=== PATIENT | female | born 1935 ===

== ENCOUNTER 2017-12-16 15:45 | Inpatient (IN) | payer MEDICARE, MEDICAID ==
[2017-12-16] MEDS ORDERED: Sodium Chloride 0.9% 1,000 ML IV ONE (17:03)
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
[2017-12-16 17:42] LABS: BASO % 0.6 % (0.0-2.0); HEMOGLOBIN 12.6 g/dL (11.0-16.0); LYMPH # 0.6 K/uL (1.0-4.3); LYMPH % 18.1 % (20.0-40.0); MEAN CORPUSCULAR HEMOGLOBIN 28.5 pg (27.0-31.0); MEAN PLATELET VOLUME 8.1 fL (7.2-11.7); MONO # 0.3 K/uL (0.0-0.8); MONO % 7.2 % (0.0-10.0); NEUT # 2.6 K/uL (1.8-7.0); NEUT % 73.1 % (50.0-75.0); NRBC % 0.1 % (0.0-2.0); RBC 4.44 Mil/uL (3.80-5.20); WHITE BLOOD COUNT 3.5 K/uL (4.8-10.8)
[2017-12-16 17:45] VITALS: BMI 26.3
[2017-12-16 17:45] LABS: MEAN CELL VOLUME 86.1 fL (81.0-99.0)
[2017-12-16 17:51] LABS: ALB/GLOB RATIO 1.1 (1.0-2.1); ALBUMIN 3.2 g/dL (3.5-5.0); ALT/SGPT 26 U/L (9-52); AST/SGOT 37 U/L (14-36); BLOOD UREA NITROGEN 10 mg/dL (7-17); CALCIUM 8.3 mg/dl (8.6-10.4); GFR AFRICAN-AMERICAN > 60; GFR NON-AFRICAN AMERICAN > 60
[2017-12-16] MEDS ORDERED: Potassium Chloride 20 mEq ER Tab PO STA (18:07)
[2017-12-16] MEDS ORDERED: Potassium Chloride 20 mEq ER Tab PO ONE (18:51)
[2017-12-16] MEDS ORDERED: Potassium Chloride 20 mEq 0 MEQ/0 ML BAG IVPB ONE (18:52)
[2017-12-16] MEDS ORDERED: Dextrose 50% SYRINGE Inj (50 ml) IV STA (18:57)
[2017-12-16] MEDS ORDERED: Dextrose 50% VIAL Inj (50 ml) IV ONE (19:26)
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
[2017-12-16 21:47] LABS: SQUAMOUS EPITHIAL < 1 /hpf (0-5); URINE BACTERIA RARE (<OCC); URINE BILIRUBIN NEGATIVE (NEGATIVE); URINE BLOOD NEGATIVE (NEGATIVE); URINE CLARITY Clear (Clear); URINE COLOR Yellow (YELLOW); URINE GLUCOSE (UA) NORMAL (Normal); URINE LEUKOCYTE ESTERASE TRACE Leu/uL (Negative); URINE NITRATE NEGATIVE (NEGATIVE); URINE PROTEIN NEGATIVE (NEGATIVE); URINE UROBILINOGEN NORMAL mg/dL (0.2-1.0)
[2017-12-16] MEDS: Sodium Chloride 0.9% 1,000 ML IV SCH (22:34)
[2017-12-17] MEDS ORDERED: Dextrose 50% SYRINGE Inj (50 ml) IV STA (07:31)
[2017-12-17 07:38] LABS: BASO % 0.6 % (0.0-2.0); EOS # 0.1 K/uL (0.0-0.7); EOS % 3.4 % (0.0-4.0); HEMOGLOBIN 12.3 g/dL (11.0-16.0); LYMPH # 0.8 K/uL (1.0-4.3); LYMPH % 25.5 % (20.0-40.0); MEAN CELL VOLUME 87.2 fL (81.0-99.0); MEAN CORPUSCULAR HEMOGLOBIN 28.6 pg (27.0-31.0); MEAN CORPUSCULAR HGB CONC 32.8 g/dL (33.0-37.0); MONO # 0.4 K/uL (0.0-0.8); MONO % 11.3 % (0.0-10.0); NEUT # 1.9 K/uL (1.8-7.0); NEUT % 59.2 % (50.0-75.0); NRBC % 0.2 % (0.0-2.0); RBC 4.28 Mil/uL (3.80-5.20); RED CELL DISTRIBUTION WIDTH 18.3 % (11.5-14.5); WHITE BLOOD COUNT 3.3 K/uL (4.8-10.8)
[2017-12-17 07:39] VITALS: RESP 20
[2017-12-17 07:57] LABS: ALB/GLOB RATIO 1.1 (1.0-2.1); ALBUMIN 3.1 g/dL (3.5-5.0); ALT/SGPT 25 U/L (9-52); AST/SGOT 35 U/L (14-36); BLOOD UREA NITROGEN 8 mg/dL (7-17); CALCIUM 8.2 mg/dl (8.6-10.4); GFR AFRICAN-AMERICAN > 60; GFR NON-AFRICAN AMERICAN > 60
[2017-12-17] MEDS: Sodium Chloride 0.9% 1,000 ML IV SCH ×2 (08:04→21:37)
--- NOTE | 2017-12-17 10:06 | CP.PCM.PN ---
Subjective - Date & Time of Evaluation Date of Evaluation: 12/17/17 Time of Evaluation: 10:02 - Subjective Subjective: Medicine progress note for Dr. Soto's service Patient was seen and examined at bedside in no acute distress. Patient reports having pain in her abdomen and back. Patient says she has chronic pain due to her metastatic cancer. Patient also reports decreased appetite and nausea with food. Patient denies chest pain, shortness of breath, vomiting, fevers, headaches. Objective - Vital Signs/Intake and Output Vital Signs (last 24 hours): Temp Pulse Resp BP Pulse Ox 98.1 F 79 20 150/72 97 12/17/17 07:36 12/17/17 07:36 12/17/17 07:36 12/17/17 07:36 12/17/17 07:36 - Medications Medications: Current Medications Diazepam (Valium) 10 mg PO QPM [facility] Docusate Sodium (Colace) 100 mg PO BID [facility] Enoxaparin Sodium (Lovenox) 30 mg SC DAILY [facility] Ergocalciferol (Drisdol 50,000 Intl Units Cap) 1 cap PO QWK [facility] Gabapentin (Neurontin) 100 mg PO DAILY [facility] Hydromorphone HCl (Dilaudid) 1 mg IVP Q6H PRN PRN Reason: Pain, severe (8-10) Hydromorphone HCl (Dilaudid) 0.5 mg IVP Q6H PRN PRN Reason: Pain, moderate (4-7) Sodium Chloride (Sodium Chloride 0.9%) 1,000 mls @ 100 mls/hr IV .Q10H [facility] Last Admin: 12/17/17 08:04 Dose: Not Given Pantoprazole Sodium (Protonix Ec Tab) 40 mg PO DAILY [facility] - Labs Labs: 12/17/17 07:16 12/17/17 07:16 - Constitutional Appears: No Acute Distress - Head Exam Head Exam: ATRAUMATIC, NORMAL INSPECTION - Eye Exam Eye Exam: EOMI, Normal appearance - ENT Exam ENT Exam: Mucous Membranes Moist - Respiratory Exam Respiratory Exam: Clear to Ausculation Bilateral, NORMAL BREATHING PATTERN. absent: Rales, Rhonchi, Wheezes, Respiratory Distress - Cardiovascular Exam Cardiovascular Exam: REGULAR RHYTHM, +S1, +S2 - GI/Abdominal Exam GI & Abdominal Exam: Soft, Tenderness (diffuse), Normal Bowel Sounds. absent: Distended - Extremities Exam Extremities Exam: Normal Inspection - Neurological Exam Neurological Exam: Alert, Awake, Oriented x3 - Psychiatric Exam Psychiatric exam: Normal Affect, Normal Mood - Skin Skin Exam: Dry, Intact, Normal Color, Warm Assessment and Plan - Assessment and Plan (Free Text) Plan: Assessment & Plan (1) Generalized pain Assessment and Plan: Secondary to Stage IV breast cancer with metastases Hematology and Oncology Consult, Dr. Diane ---> Help appreciated Pain management: * Dilaudid 0.5mg IV Q6H prn---> moderate pain * Dilaudid 1 mg IV Q6H prn----> Severe pain Rapid Influenza test negative (2) Metastatic breast cancer Assessment and Plan: With metastases Hematology and Oncology Consult, Dr. Diane ---> Help appreciated - Management as per recommendation - On chemotherapy Abdomen/Pelvis CT (12/13/17): Right breast prosthesis; multiple bilateral pulmonary nodules suspicious for metastases; hepatic lesions suspicious for metastases; Chest X-ray (12/13/17):Patchy bilateral mid to lower lobe infiltrate changes with what may represent some concomitant atelectasis both lung bases (3) Constipation Assessment and Plan: Colace 100mg PO BID (4) Colitis Assessment and Plan: CT abdomen/Pelvis (12/13/17): descending colon colitis, ileus Discharge from [facility] on short term PO Cipro and Flagyl x 3 more days. (5) Diabetes mellitus Assessment and Plan: Stable Accuchecks F/u HgbA1c will reevaluation for need of ISS based on accuchecks (6) History of hypertension Assessment and Plan: Stable Reevaluate for need of inpatient medication based on vital signs Q4H (7) History of osteoporosis Assessment and Plan: Continue home medication: * Vitamin D 50,000 units daily (8) Prophylactic measure Assessment and Plan: GI: Protonix 40mg PO daily DVT: Lovenox 30mg SC daily Palliative care consult All plans and management discussed with attending, Dr. Soto
[2017-12-17] MEDS: Enoxaparin 30 mg Syringe SC SCH (11:00)
[2017-12-17] MEDS: Pantoprazole 40 mg EC Tab PO SCH (11:00)
[2017-12-17] MEDS: Potassium Chloride 20 mEq ER Tab PO ONE ×2 (12:03→12:04)
--- NOTE | 2017-12-17 16:17 | CP.PCM.CON ---
History of Present Illness - History of Present Illness History of Present Illness: 82 yo woman diagnosed with breast cancer in 2009, s/p adjuvant chemo the , develope dmetastatic disease soon after and has been on chemo, mainly herceptin based since then. lately she has been c/o increased pain, mid back, cough, change in voice and weight loss. Above symptoms likely due to progression of cancer with increasing tumor markers , increased mets on CAT and recent PET scan, chemo changed again and she was started on kadcyla. Past Patient History - Infectious Disease Hx of Infectious Diseases: None - Past Medical History & Family History Past Medical History?: Yes - Past Social History Smoking Status: Never Smoked - CARDIAC Hx Cardiac Disorders: Yes Hx Hypertension: Yes - PULMONARY Hx Respiratory Disorders: No - NEUROLOGICAL Hx Neurological Disorder: No - HEENT Hx HEENT Problems: No - RENAL Hx Chronic Kidney Disease: No - ENDOCRINE/METABOLIC Hx Endocrine Disorders: Yes Hx Diabetes Mellitus Type 2: Yes - HEMATOLOGICAL/ONCOLOGICAL Hx Blood Disorders: Yes Hx Blood Transfusions: No Hx Cancer: Yes (RIGHT BREAST 2010) Hx Chemotherapy: Yes Hx Metastesis: Yes Other/Comment: SEE PET SCAN REPORT OF 07/20/16-INCLUDING NECREASED # OF METASTATIC LYMPH NODES TO THE RIGHT UPPER ABD, NEW METASTATIC LESION TO THE RIGHT DIAPHRAGMATIC RAY....... - INTEGUMENTARY Hx Dermatological Problems: No - MUSCULOSKELETAL/RHEUMATOLOGICAL Hx Falls: No - GASTROINTESTINAL Hx Gastrointestinal Disorders: Yes Hx Gastritis: Yes - GENITOURINARY/GYNECOLOGICAL Hx Genitourinary Disorders: No - PSYCHIATRIC Hx Substance Use: No - SURGICAL HISTORY Hx Surgeries: Yes Hx Appendectomy: Yes Hx Cholecystectomy: Yes Hx Tonsillectomy: Yes - ANESTHESIA Hx Anesthesia: Yes Hx Anesthesia Reactions: No Hx Malignant Hyperthermia: No Has any member of the family had a problem w/ anesthesia?: No Meds Allergies/Adverse Reactions: Allergies Allergy/AdvReac Type Severity Reaction Status Date / Time Penicillins Allergy Intermediate RASH Verified 12/16/17 16:52 - Medications Medications: Current Medications Diazepam (Valium) 10 mg PO QPM [facility] Docusate Sodium (Colace) 100 mg PO BID [facility] Last Admin: 12/17/17 10:58 Dose: 100 mg Enoxaparin Sodium (Lovenox) 30 mg SC DAILY [facility] Last Admin: 12/17/17 11:00 Dose: 30 mg Ergocalciferol (Drisdol 50,000 Intl Units Cap) 1 cap PO QWK [facility] Gabapentin (Neurontin) 100 mg PO DAILY [facility] Last Admin: 12/17/17 12:03 Dose: 100 mg Hydromorphone HCl (Dilaudid) 1 mg IVP Q6H PRN PRN Reason: Pain, severe (8-10) Last Admin: 12/17/17 10:58 Dose: 1 mg Hydromorphone HCl (Dilaudid) 0.5 mg IVP Q6H PRN PRN Reason: Pain, moderate (4-7) Sodium Chloride (Sodium Chloride 0.9%) 1,000 mls @ 100 mls/hr IV .Q10H [facility] Last Admin: 12/17/17 08:04 Dose: Not Given Ondansetron HCl (Zofran Inj) 4 mg IVP Q6H PRN PRN Reason: Nausea/Vomiting Last Admin: 12/17/17 12:02 Dose: 4 mg Pantoprazole Sodium (Protonix Ec Tab) 40 mg PO DAILY [facility] Last Admin: 12/17/17 11:00 Dose: 40 mg Results - Vital Signs Recent Vital Signs: Last Vital Signs Temp 98.1 F 12/17/17 07:36 Pulse 79 12/17/17 07:36 Resp 20 12/17/17 07:36 BP 150/72 12/17/17 07:36 Pulse Ox 97 12/17/17 07:36 - Labs Result Diagrams: 12/17/17 07:16 12/17/17 07:16 Labs: Laboratory Results - last 24 hr 12/16/17 12/16/17 12/16/17 17:32 17:32 18:44 WBC 3.5 L RBC 4.44 Hgb 12.6 Hct 38.2 MCV 86.1 D MCH 28.5 MCHC 33.0 RDW 18.0 H Plt Count 230 MPV 8.1 Neut % (Auto) 73.1 Lymph % (Auto) 18.1 L Wright % (Auto) 7.2 Eos % (Auto) 1.0 Baso % (Auto) 0.6 Neut # (Auto) 2.6 Lymph # (Auto) 0.6 L Wright # (Auto) 0.3 Eos # (Auto) 0.0 Baso # (Auto) 0.0 Sodium 135 Potassium 3.1 L Chloride 100 Carbon Dioxide 28 Anion Gap 10 BUN 10 Creatinine 0.5 L Est GFR ( Amer) > 60 Est GFR (Non-Af Amer) > 60 POC Glucose (mg/dL) 58 L Random Glucose 50 L Calcium 8.3 L Total Bilirubin 0.6 AST 37 H ALT 26 Alkaline Phosphatase 172 H Total Protein 6.3 Albumin 3.2 L Globulin 3.0 Albumin/Globulin Ratio 1.1 Urine Color Urine Clarity Urine pH Ur Specific Bartlett Urine Protein Urine Glucose (UA) Urine Ketones Urine Blood Urine Nitrate Urine Bilirubin Urine Urobilinogen Ur Leukocyte Esterase Urine WBC (Auto) Urine RBC (Auto) Ur Squamous Epith Cells Urine Bacteria Influenza Typ A,B (EIA) 12/16/17 12/16/17 12/16/17 18:48 20:52 20:55 WBC RBC Hgb Hct MCV MCH MCHC RDW Plt Count MPV Neut % (Auto) Lymph % (Auto) Wright % (Auto) Eos % (Auto) Baso % (Auto) Neut # (Auto) Lymph # (Auto) Wright # (Auto) Eos # (Auto) Baso # (Auto) Sodium Potassium Chloride Carbon Dioxide Anion Gap BUN Creatinine Est GFR ( Amer) Est GFR (Non-Af Amer) POC Glucose (mg/dL) 57 L 56 L 66 Random Glucose Calcium Total Bilirubin AST ALT Alkaline Phosphatase Total Protein Albumin Globulin Albumin/Globulin Ratio Urine Color Urine Clarity Urine pH Ur Specific Bartlett Urine Protein Urine Glucose (UA) Urine Ketones Urine Blood Urine Nitrate Urine Bilirubin Urine Urobilinogen Ur Leukocyte Esterase Urine WBC (Auto) Urine RBC (Auto) Ur Squamous Epith Cells Urine Bacteria Influenza Typ A,B (EIA) 12/16/17 12/16/17 12/16/17 21:08 21:23 22:45 WBC RBC Hgb Hct MCV MCH MCHC RDW Plt Count MPV Neut % (Auto) Lymph % (Auto) Wright % (Auto) Eos % (Auto) Baso % (Auto) Neut # (Auto) Lymph # (Auto) Wright # (Auto) Eos # (Auto) Baso # (Auto) Sodium Potassium Chloride Carbon Dioxide Anion Gap BUN Creatinine Est GFR ( Amer) Est GFR (Non-Af Amer) POC Glucose (mg/dL) 118 H Random Glucose Calcium Total Bilirubin AST ALT Alkaline Phosphatase Total Protein Albumin Globulin Albumin/Globulin Ratio Urine Color Yellow Urine Clarity Clear Urine pH 6.0 Ur Specific Bartlett 1.013 Urine Protein Negative Urine Glucose (UA) Normal Urine Ketones Negative Urine Blood Negative Urine Nitrate Negative Urine Bilirubin Negative Urine Urobilinogen Normal Ur Leukocyte Esterase Trace Urine WBC (Auto) 12 H Urine RBC (Auto) 1 Ur Squamous Epith Cells < 1 Urine Bacteria Rare Influenza Typ A,B (EIA) Negative for flu a/b 12/17/17 12/17/17 12/17/17 07:00 07:01 07:14 WBC RBC Hgb Hct MCV MCH MCHC RDW Plt Count MPV Neut % (Auto) Lymph % (Auto) Wright % (Auto) Eos % (Auto) Baso % (Auto) Neut # (Auto) Lymph # (Auto) Wright # (Auto) Eos # (Auto) Baso # (Auto) Sodium Potassium Chloride Carbon Dioxide Anion Gap BUN Creatinine Est GFR ( Amer) Est GFR (Non-Af Amer) POC Glucose (mg/dL) 60 L 64 L 63 L Random Glucose Calcium Total Bilirubin AST ALT Alkaline Phosphatase Total Protein Albumin Globulin Albumin/Globulin Ratio Urine Color Urine Clarity Urine pH Ur Specific Bartlett Urine Protein Urine Glucose (UA) Urine Ketones Urine Blood Urine Nitrate Urine Bilirubin Urine Urobilinogen Ur Leukocyte Esterase Urine WBC (Auto) Urine RBC (Auto) Ur Squamous Epith Cells Urine Bacteria Influenza Typ A,B (EIA) 12/17/17 12/17/17 12/17/17 07:16 07:16 07:16 WBC 3.3 L RBC 4.28 Hgb 12.3 Hct 37.3 MCV 87.2 MCH 28.6 MCHC 32.8 L RDW 18.3 H Plt Count 203 MPV 8.0 Neut % (Auto) 59.2 Lymph % (Auto) 25.5 Wright % (Auto) 11.3 H Eos % (Auto) 3.4 Baso % (Auto) 0.6 Neut # (Auto) 1.9 Lymph # (Auto) 0.8 L Wright # (Auto) 0.4 Eos # (Auto) 0.1 Baso # (Auto) 0.0 Sodium 141 Potassium 3.2 L Chloride 106 Carbon Dioxide 25 Anion Gap 12 BUN 8 Creatinine 0.6 L Est GFR ( Amer) > 60 Est GFR (Non-Af Amer) > 60 POC Glucose (mg/dL) 57 L Random Glucose 46 L Calcium 8.2 L Total Bilirubin 0.5 AST 35 ALT 25 Alkaline Phosphatase 160 H Total Protein 6.0 L Albumin 3.1 L Globulin 2.9 Albumin/Globulin Ratio 1.1 Urine Color Urine Clarity Urine pH Ur Specific Bartlett Urine Protein Urine Glucose (UA) Urine Ketones Urine Blood Urine Nitrate Urine Bilirubin Urine Urobilinogen Ur Leukocyte Esterase Urine WBC (Auto) Urine RBC (Auto) Ur Squamous Epith Cells Urine Bacteria Influenza Typ A,B (EIA) 12/17/17 11:06 WBC RBC Hgb Hct MCV MCH MCHC RDW Plt Count MPV Neut % (Auto) Lymph % (Auto) Wright % (Auto) Eos % (Auto) Baso % (Auto) Neut # (Auto) Lymph # (Auto) Wright # (Auto) Eos # (Auto) Baso # (Auto) Sodium Potassium Chloride Carbon Dioxide Anion Gap BUN Creatinine Est GFR ( Amer) Est GFR (Non-Af Amer) POC Glucose (mg/dL) 106 Random Glucose Calcium Total Bilirubin AST ALT Alkaline Phosphatase Total Protein Albumin Globulin Albumin/Globulin Ratio Urine Color Urine Clarity Urine pH Ur Specific Bartlett Urine Protein Urine Glucose (UA) Urine Ketones Urine Blood Urine Nitrate Urine Bilirubin Urine Urobilinogen Ur Leukocyte Esterase Urine WBC (Auto) Urine RBC (Auto) Ur Squamous Epith Cells Urine Bacteria Influenza Typ A,B (EIA) Assessment & Plan (1) Metastatic breast carcinoma Assessment and Plan: 82 yo woman with progressive, metastatic breast cancer, admitted with nausea, vomiting, poor appetite, increased pain. Plan- Agree with pain control, nausea meds and electrolyte replacement. Start low dose Decadron, may assist with pain control and help with appetite. Will order MRI of T-spine and brain, if mets are seen or cord compromise seen, the patient will benefit from palliative RT. PT/OT referral Status: Acute
[2017-12-17] MEDS: Dexamethasone 4 mg/1 ml IV SCH (17:34)
[2017-12-17] MEDS: HYDROmorphone 1 mg/ml ISec IVP SCH (21:36)
[2017-12-18] MEDS: HYDROmorphone 1 mg/ml ISec IVP SCH ×3 (02:14→18:55)
[2017-12-18 08:39] LABS: BASO % 0.5 % (0.0-2.0); EOS % 1.1 % (0.0-4.0); HEMOGLOBIN 12.2 g/dL (11.0-16.0); LYMPH # 0.7 K/uL (1.0-4.3); LYMPH % 17.2 % (20.0-40.0); MEAN CELL VOLUME 87.1 fL (81.0-99.0); MEAN CORPUSCULAR HGB CONC 33.3 g/dL (33.0-37.0); MEAN PLATELET VOLUME 9.1 fL (7.2-11.7); MONO # 0.3 K/uL (0.0-0.8); MONO % 7.7 % (0.0-10.0); NEUT # 2.9 K/uL (1.8-7.0); NEUT % 73.5 % (50.0-75.0); NRBC % 0.1 % (0.0-2.0); RBC 4.2 Mil/uL (3.80-5.20); RED CELL DISTRIBUTION WIDTH 17.8 % (11.5-14.5)
[2017-12-18 09:05] LABS: ALBUMIN 3.1 g/dL (3.5-5.0); ALT/SGPT 18 U/L (9-52); AST/SGOT 28 U/L (14-36); BLOOD UREA NITROGEN 6 mg/dL (7-17); CALCIUM 9.2 mg/dl (8.6-10.4); GFR AFRICAN-AMERICAN > 60; GFR NON-AFRICAN AMERICAN > 60; MAGNESIUM 1.6 mg/dL (1.6-2.3)
[2017-12-18] MEDS: Sodium Chloride 0.9% 1,000 ML IV SCH ×2 (11:45→11:53)
[2017-12-18] MEDS: Dexamethasone 4 mg/1 ml IV SCH ×2 (11:51→17:41)
[2017-12-18] MEDS: Enoxaparin 30 mg Syringe SC SCH (11:53)
--- NOTE | 2017-12-18 12:25 | CP.PCM.PN ---
Subjective - Date & Time of Evaluation Date of Evaluation: 12/18/17 Time of Evaluation: 12:21 - Subjective Subjective: PGY [address] Soto Pt seen and examined at bedside. No acute events overnight. Pt states that she is still have back pain. Denies having any CP, SOB, abd pain, N/V/d/c, f/ C. Tolerating diet as small frequent meals. 12 point ROS negative except for the above mentioned. Objective - Vital Signs/Intake and Output Vital Signs (last 24 hours): Temp Pulse Resp BP Pulse Ox 98.1 F 84 20 125/66 97 12/17/17 23:20 12/17/17 23:20 12/17/17 23:20 12/17/17 23:20 12/17/17 23:20 Intake and Output: 12/18/17 12/18/17 06:59 18:59 Intake Total 350 Balance 350 - Medications Medications: Current Medications Dexamethasone (Decadron Inj) 2 mg IV BID [facility] Last Admin: 12/18/17 11:51 Dose: 2 mg Diazepam (Valium) 10 mg PO QPM [facility] Last Admin: 12/17/17 17:40 Dose: Not Given Docusate Sodium (Colace) 100 mg PO BID [facility] Last Admin: 12/18/17 11:52 Dose: 100 mg Enoxaparin Sodium (Lovenox) 30 mg SC DAILY [facility] Last Admin: 12/18/17 11:53 Dose: 30 mg Ergocalciferol (Drisdol 50,000 Intl Units Cap) 1 cap PO QWK [facility] Gabapentin (Neurontin) 100 mg PO DAILY [facility] Last Admin: 12/18/17 11:51 Dose: 100 mg Hydromorphone HCl (Dilaudid) 1 mg IVP Q6H PRN PRN Reason: Pain, severe (8-10) Last Admin: 12/18/17 09:59 Dose: 1 mg Hydromorphone HCl (Dilaudid) 0.5 mg IVP Q6H PRN PRN Reason: Pain, moderate (4-7) Hydromorphone HCl (Dilaudid) 1 mg IVP Q8H [facility] Last Admin: 12/18/17 11:52 Dose: Not Given Sodium Chloride (Sodium Chloride 0.9%) 1,000 mls @ 100 mls/hr IV .Q10H [facility] Last Admin: 12/18/17 11:53 Dose: 100 mls/hr Ondansetron HCl (Zofran Inj) 4 mg IVP Q6H PRN PRN Reason: Nausea/Vomiting Last Admin: 12/17/17 17:35 Dose: 4 mg Pantoprazole Sodium (Protonix Ec Tab) 40 mg PO DAILY [facility] Last Admin: 12/17/17 11:00 Dose: 40 mg - Labs Labs: 12/18/17 08:13 12/18/17 08:13 - Constitutional Appears: Non-toxic, No Acute Distress - Head Exam Head Exam: ATRAUMATIC - ENT Exam ENT Exam: Mucous Membranes Moist - Respiratory Exam Respiratory Exam: Clear to Ausculation Bilateral. absent: Accessory Muscle Use , Rales, Rhonchi, Wheezes, Respiratory Distress - Cardiovascular Exam Cardiovascular Exam: REGULAR RHYTHM, +S1, +S2. absent: Gallop, Rubs, Murmur - GI/Abdominal Exam GI & Abdominal Exam: Soft, Normal Bowel Sounds. absent: Distended, Firm, Guarding, Rigid, Tenderness, Organomegaly - Back Exam Back Exam: absent: paraspinal tenderness, tenderness - Neurological Exam Neurological Exam: Alert, Awake, Oriented x3 - Psychiatric Exam Psychiatric exam: Normal Affect, Normal Mood - Skin Skin Exam: Dry, Intact, Normal Color, Warm Assessment and Plan - Assessment and Plan (Free Text) Assessment: (1) Generalized pain Assessment and Plan: Secondary to Stage IV breast cancer with metastases Hematology and Oncology Consult, Dr. Diane ---> Recommends getting MRI of brain and spine. Pt had MRI done today. results pending. Pain management: * Dilaudid 0.5mg IV Q6H prn---> moderate pain * Dilaudid 1 mg IV Q6H prn----> Severe pain Rapid Influenza test negative (2) Metastatic breast cancer Assessment and Plan: With metastases. MRI of brain and spine done today. Results pending Hematology and Oncology Consult, Dr. Diane ---> Help appreciated - Management as per recommendation - On chemotherapy Abdomen/Pelvis CT (12/13/17): Right breast prosthesis; multiple bilateral pulmonary nodules suspicious for metastases; hepatic lesions suspicious for metastases; Chest X-ray (12/13/17):Patchy bilateral mid to lower lobe infiltrate changes with what may represent some concomitant atelectasis both lung bases (3) Constipation Assessment and Plan: Colace 100mg PO BID (4) Colitis Assessment and Plan: CT abdomen/Pelvis (12/13/17): descending colon colitis, ileus Discharge from [facility] on short term PO Cipro and Flagyl x 3 more days. Will advance diet (5) Diabetes mellitus Assessment and Plan: Stable Accuchecks F/u HgbA1c will reevaluation for need of ISS based on accuchecks (6) History of hypertension Assessment and Plan: Stable Reevaluate for need of inpatient medication based on vital signs Q4H (7) History of osteoporosis Assessment and Plan: Continue home medication: * Vitamin D 50,000 units weekly (8) Prophylactic measure Assessment and Plan: GI: Protonix 40mg PO daily DVT: Lovenox 30mg SC daily Palliative care consult All plans and management per attending, Dr. Soto
[2017-12-18] MEDS: Pantoprazole 40 mg EC Tab PO SCH (14:36)
--- NOTE | 2017-12-18 15:12 | CARD ---
APPROVED REPORT EKG Measurement Heart [id number] <Conclusion> Normal sinus rhythm Normal ECG
--- NOTE | 2017-12-18 19:07 | MRI ---
PROCEDURE: MRI of the thoracic spine dated 12/18/2017 HISTORY: Rule out cord compromise in a patient with a history of metastatic breast carcinoma. COMPARISON: Comparison made with prior MRI of the thoracic spine 08/28/2016. TECHNIQUE: Multiecho multiplanar sequences were performed through the thoracic spine without the use of intravenous contrast. 12 cc of Omniscan injected for this examination. FINDINGS: ALIGNMENT: The current study reveals multi focal metastatic deposits throughout the thoracic vertebral body segments. . Note that some of these segments exhibit increased on T1 signal possibly due to sequela of radiotherapy. Clinical correlation recommended. In the there are no acute compression deformities nor retropulsed fragments. . There appears to be on epidural extension of tumor posteriorly into the anterolateral borders of the canal at the T12 level with extension laterally into the left exit foramen surrounding the ipsilateral nerve root. . Tumor also extends into the posterior elements on the right side as well. Epidural tumor appears to be minimally compress the ventral surfaces of the thecal sac. Tumor also appears to reach the a left and possibly right antral lateral margins of the cord though no significant cord compression seen at this time. Mild multilevel degenerative no obvious on CT areas of abnormal signal or contrast enhancement seen within or along the surfaces of the spinal cord at this time. Multilevel degenerative spondylosis. There disc desiccation changes varying degrees of disc desiccation and scattered chronic appearing Schmorl's nodes. No significant disc herniation. Mild multilevel facet arthropathy. . Note made of a small right-sided effusion. Bibasilar atelectasis and/or infiltrates. Small cyst left kidney. Nodular appearance left adrenal gland. IMPRESSION: Multifocal metastatic disease which appears to involve all the thoracic segments on. There is a small amount of epidural tumor extension posterior to the T12 segment which compresses the anterolateral borders of the thecal sac nearly reaching but not significantly compressing the anterolateral borders of the spinal cord more so on the left side. Epidural tumor extends laterally into the left sided ipsilateral T11-T12 exit foramen appears to surround the exiting nerve root. . Questionable concomitant the changes of radiotherapy within many of the of thoracic segments. No acute compression fractures no retropulsed fragments. No definitive radiographic evidence of enhancement within or along the surfaces of the spinal cord or nerve roots. Small right-sided effusion and suspected bibasilar atelectasis. See above discussion for additional details and findings. .
[2017-12-19] MEDS: Sodium Chloride 0.9% 1,000 ML IV SCH ×4 (00:15→21:12)
[2017-12-19] MEDS: HYDROmorphone 1 mg/ml ISec IVP SCH ×2 (01:24→10:39)
[2017-12-19 07:14] LABS: BASO % 0.5 % (0.0-2.0); EOS % 0.2 % (0.0-4.0); HEMOGLOBIN 11.5 g/dL (11.0-16.0); LYMPH # 0.7 K/uL (1.0-4.3); LYMPH % 16.9 % (20.0-40.0); MEAN CELL VOLUME 86.1 fL (81.0-99.0); MEAN CORPUSCULAR HEMOGLOBIN 28.3 pg (27.0-31.0); MEAN CORPUSCULAR HGB CONC 32.8 g/dL (33.0-37.0); MONO # 0.3 K/uL (0.0-0.8); NEUT # 3.2 K/uL (1.8-7.0); NEUT % 75.4 % (50.0-75.0); NRBC % 0.5 % (0.0-2.0); RBC 4.05 Mil/uL (3.80-5.20); RED CELL DISTRIBUTION WIDTH 17.5 % (11.5-14.5); WHITE BLOOD COUNT 4.3 K/uL (4.8-10.8)
[2017-12-19 07:54] LABS: ALB/GLOB RATIO 1.3 (1.0-2.1); ALBUMIN 3.2 g/dL (3.5-5.0); ALT/SGPT 18 U/L (9-52); AST/SGOT 22 U/L (14-36); BLOOD UREA NITROGEN 9 mg/dL (7-17); CALCIUM 9.1 mg/dl (8.6-10.4); GFR AFRICAN-AMERICAN > 60; GFR NON-AFRICAN AMERICAN > 60
[2017-12-19] MEDS: Dexamethasone 4 mg/1 ml IV SCH ×2 (09:29→17:53)
[2017-12-19] MEDS: Pantoprazole 40 mg EC Tab PO SCH (09:29)
[2017-12-19] MEDS: Enoxaparin 30 mg Syringe SC SCH (09:30)
--- NOTE | 2017-12-19 10:44 | CP.PCM.PN ---
Subjective - Date & Time of Evaluation Date of Evaluation: 12/19/17 Time of Evaluation: 10:38 - Subjective Subjective: PGY2 progress note for Dr. Soto Pt seen and examiend at bedside. No acute events overnight. Pt states that she is tolerating diet. Denies having any N/V/D/C, abd discomfort, F/C, Cp, SOB. 12 point ROS negative except for the above mentioned. Objective - Vital Signs/Intake and Output Vital Signs (last 24 hours): Temp Pulse Resp BP Pulse Ox 98.7 F 83 20 127/62 98 12/19/17 08:49 12/19/17 08:49 12/19/17 08:49 12/19/17 08:49 12/19/17 08:49 Intake and Output: 12/19/17 12/19/17 06:59 18:59 Intake Total 2250 Balance 2250 - Medications Medications: Current Medications Dexamethasone (Decadron Inj) 2 mg IV BID [facility] Last Admin: 12/19/17 09:29 Dose: 2 mg Diazepam (Valium) 10 mg PO QPM [facility] Last Admin: 12/18/17 18:00 Dose: Not Given Docusate Sodium (Colace) 100 mg PO BID [facility] Last Admin: 12/19/17 09:29 Dose: 100 mg Enoxaparin Sodium (Lovenox) 30 mg SC DAILY [facility] Last Admin: 12/19/17 09:30 Dose: 30 mg Ergocalciferol (Drisdol 50,000 Intl Units Cap) 1 cap PO QWK [facility] Gabapentin (Neurontin) 100 mg PO DAILY [facility] Last Admin: 12/19/17 09:29 Dose: 100 mg Hydromorphone HCl (Dilaudid) 1 mg IVP Q6H PRN PRN Reason: Pain, severe (8-10) Last Admin: 12/19/17 01:20 Dose: 1 mg Hydromorphone HCl (Dilaudid) 0.5 mg IVP Q6H PRN PRN Reason: Pain, moderate (4-7) Hydromorphone HCl (Dilaudid) 1 mg IVP Q8H [facility] Last Admin: 12/19/17 10:35 Dose: 1 mg Sodium Chloride (Sodium Chloride 0.9%) 1,000 mls @ 100 mls/hr IV .Q10H [facility] Last Admin: 12/19/17 09:46 Dose: 100 mls/hr Ondansetron HCl (Zofran Inj) 4 mg IVP Q6H [facility] Last Admin: 12/19/17 06:46 Dose: Not Given Pantoprazole Sodium (Protonix Ec Tab) 40 mg PO DAILY [facility] Last Admin: 12/19/17 09:29 Dose: 40 mg - Labs Labs: 12/19/17 07:01 12/19/17 07:01 - Constitutional Appears: Non-toxic, No Acute Distress - Head Exam Head Exam: ATRAUMATIC - ENT Exam ENT Exam: Mucous Membranes Moist - Respiratory Exam Respiratory Exam: Clear to Ausculation Bilateral. absent: Accessory Muscle Use , Rales, Rhonchi, Wheezes, Respiratory Distress - Cardiovascular Exam Cardiovascular Exam: REGULAR RHYTHM, +S1, +S2. absent: Gallop, Rubs, Murmur - GI/Abdominal Exam GI & Abdominal Exam: Soft, Normal Bowel Sounds. absent: Distended, Firm, Guarding, Rigid, Tenderness, Organomegaly - Extremities Exam Extremities Exam: absent: Pedal Edema, Tenderness - Neurological Exam Neurological Exam: Alert, Awake, Oriented x3 - Psychiatric Exam Psychiatric exam: Normal Affect, Normal Mood - Skin Skin Exam: Dry, Intact, Normal Color, Warm Assessment and Plan - Assessment and Plan (Free Text) Assessment: (1) Generalized pain Assessment and Plan: Secondary to Stage IV breast cancer with metastases Hematology and Oncology Consult, Dr. Diane Pain management: * Dilaudid 0.5mg IV Q6H prn---> moderate pain * Dilaudid 1 mg IV Q6H prn----> Severe pain Rapid Influenza test negative MRI of spine done on 12/18/17 showed metastasis to thoracic spine involving all segments. Small epidural tumor extension posterior to T12 segment which compresses the anterolateral borders of the thecal sac nearly reaching but not significantly compressing the spinal cord. Tumor extending laterally at T11- T12. Please see full report for details. (2) Metastatic breast cancer Assessment and Plan: Hematology and Oncology Consult, Dr. Diane ---> Help appreciated - Management as per recommendation - On chemotherapy Abdomen/Pelvis CT (12/13/17): Right breast prosthesis; multiple bilateral pulmonary nodules suspicious for metastases; hepatic lesions suspicious for metastases; MRi of spine shows diffuse mets to thoracic spine Chest X-ray (12/13/17):Patchy bilateral mid to lower lobe infiltrate changes with what may represent some concomitant atelectasis both lung bases (3) Constipation Assessment and Plan: Colace 100mg PO BID (4) Colitis Assessment and Plan: CT abdomen/Pelvis (12/13/17): descending colon colitis, ileus Discharge from [facility] on short term PO Cipro and Flagyl x 3 more days. Will advance diet (5) Diabetes mellitus Assessment and Plan: Stable Accuchecks F/u HgbA1c will reevaluation for need of ISS based on accuchecks (6) History of hypertension Assessment and Plan: Stable Reevaluate for need of inpatient medication based on vital signs Q4H (7) History of osteoporosis Assessment and Plan: Continue home medication: * Vitamin D 50,000 units weekly (8) Prophylactic measure Assessment and Plan: GI: Protonix 40mg PO daily DVT: Lovenox 30mg SC daily Palliative care consult All plans and management per attending, Dr. Soto
[2017-12-20 07:01] LABS: ALB/GLOB RATIO 1.4 (1.0-2.1); ALBUMIN 3.1 g/dL (3.5-5.0); ALT/SGPT 20 U/L (9-52); AST/SGOT 20 U/L (14-36); BLOOD UREA NITROGEN 13 mg/dL (7-17); CALCIUM 8.3 mg/dl (8.6-10.4); GFR AFRICAN-AMERICAN > 60; GFR NON-AFRICAN AMERICAN > 60
[2017-12-20 07:24] LABS: BASO % 0.3 % (0.0-2.0); EOS % 0.6 % (0.0-4.0); HEMOGLOBIN 11.5 g/dL (11.0-16.0); LYMPH % 21.7 % (20.0-40.0); MEAN CELL VOLUME 86.5 fL (81.0-99.0); MEAN CORPUSCULAR HEMOGLOBIN 28.1 pg (27.0-31.0); MEAN CORPUSCULAR HGB CONC 32.5 g/dL (33.0-37.0); MEAN PLATELET VOLUME 9.1 fL (7.2-11.7); MONO # 0.4 K/uL (0.0-0.8); MONO % 8.5 % (0.0-10.0); NEUT # 3.2 K/uL (1.8-7.0); NEUT % 68.9 % (50.0-75.0); NRBC % 0.1 % (0.0-2.0); RBC 4.09 Mil/uL (3.80-5.20); RED CELL DISTRIBUTION WIDTH 17.4 % (11.5-14.5); WHITE BLOOD COUNT 4.6 K/uL (4.8-10.8)
[2017-12-20] MEDS ORDERED: Gadodiamide 287 MG/ML VIAL (15ML) IV ONE (09:50)
[2017-12-20] MEDS: Dexamethasone 4 mg/1 ml IV SCH ×2 (11:17→18:30)
[2017-12-20] MEDS: Enoxaparin 30 mg Syringe SC SCH (11:21)
[2017-12-20] MEDS: Pantoprazole 40 mg EC Tab PO SCH (11:22)
--- NOTE | 2017-12-20 13:21 | MRI ---
PROCEDURE: MRI BRAIN WITH AND WITHOUT CONTRAST HISTORY: rule out metastatic disease, h/o breast cancer COMPARISON: Noncontrast head CT from 11/17/2017. TECHNIQUE: Multiplanar, multisequence MR images of the brain were obtained with and without intravenous contrast enhancement. 12 mL Omniscan was injected intravenously. FINDINGS: HEMORRHAGE: None DWI: No evidence of an acute or early subacute infarction. BRAIN PARENCHYMA: There is a 7 x 7 mm enhancing lesion with mild surrounding vasogenic edema in the left superior cerebellar hemisphere. There is a 2 mm enhancing focus in the left frontal white matter few 1-2 mm enhancing foci in the right parietal subcortical and deep white matter. The midline sagittal structures are normal. There is no extra-axial fluid collection. There are mild chronic microangiopathic changes. ENHANCEMENT: There is no leptomeningeal enhancement. VENTRICLES: Pacs there is mild age-related global parenchymal volume loss and proportionate enlargement of the ventricles and cortical sulci. CRANIUM: There is normal bone marrow signal pattern. There is hyperostosis frontalis interna. ORBITS: Grossly unremarkable. PARANASAL SINUSES/MASTOIDS: The paranasal sinuses are predominantly clear. There is trace left mastoid effusion. The right mastoid air cells are clear. VASCULAR SYSTEM: There are normal signal voids in the larger intracranial arteries. OTHER FINDINGS: None . IMPRESSION: 1. 7 x 7 mm enhancing lesion with mild surrounding vasogenic edema in the left superior cerebellar hemisphere concerning for metastasis with the stated clinical history of breast cancer. 2. Few scattered 1-2 mm enhancing foci in the frontal and parietal white matter are nonspecific however superficial cortical metastasis is a consideration with the stated history of breast cancer. Short-term interval follow-up is advised. 3. Mild chronic microangiopathic changes and mild age-related global parenchymal volume loss.
[2017-12-20] MEDS ORDERED: Bisacodyl 5mg EC Tab PO ONE (13:50)
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
--- NOTE | 2017-12-20 19:11 | CP.PCM.PN ---
Subjective - Date & Time of Evaluation Date of Evaluation: 12/20/17 Time of Evaluation: 19:01 - Subjective Subjective: The patient has a better appetite on PO Decadron, pain improved with steroids and dilaudid. Constipated. Discussed with son and patient regarding findings on MRI brain. They understand the terminal status of the disease. They will also discuss with Rad-Onc regarding risks / benefits of WBRT in advanced stage disease. Start RT and ? rehab evaluation to complete rest of RT there. Family will also discuss amongst each other regarding DNR/DNI Objective - Vital Signs/Intake and Output Vital Signs (last 24 hours): Temp Pulse Resp BP Pulse Ox 98.3 F 79 20 132/67 96 12/20/17 16:46 12/20/17 16:46 12/20/17 16:46 12/20/17 16:46 12/20/17 16:46 Intake and Output: 12/20/17 12/21/17 18:59 06:59 Intake Total 1400 Output Total 1000 Balance 400 - Medications Medications: Current Medications Dexamethasone (Decadron Inj) 4 mg IV BID [facility] Last Admin: 12/20/17 18:30 Dose: 4 mg Diazepam (Valium) 10 mg PO QPM [facility] Last Admin: 12/20/17 18:39 Dose: Not Given Docusate Sodium (Colace) 100 mg PO BID [facility] Last Admin: 12/20/17 11:15 Dose: 100 mg Enoxaparin Sodium (Lovenox) 30 mg SC DAILY [facility] Last Admin: 12/20/17 11:21 Dose: 30 mg Ergocalciferol (Drisdol 50,000 Intl Units Cap) 1 cap PO QWK [facility] Gabapentin (Neurontin) 100 mg PO DAILY [facility] Last Admin: 12/20/17 11:22 Dose: 100 mg Hydromorphone HCl (Dilaudid) 1 mg IVP Q6H PRN PRN Reason: Pain, severe (8-10) Last Admin: 12/19/17 21:13 Dose: 1 mg Hydromorphone HCl (Dilaudid) 0.5 mg IVP Q6H PRN PRN Reason: Pain, moderate (4-7) Last Admin: 12/20/17 18:38 Dose: 0.5 mg Hydromorphone HCl (Dilaudid) 1 mg IVP Q8H [facility] Last Admin: 12/20/17 18:37 Dose: Not Given Lorazepam (Ativan) 0.5 mg PO HS [facility] Ondansetron HCl (Zofran Inj) 4 mg IVP Q6H [facility] Last Admin: 12/20/17 18:42 Dose: Not Given Pantoprazole Sodium (Protonix Ec Tab) 40 mg PO DAILY [facility] Last Admin: 12/20/17 11:22 Dose: 40 mg Sennosides (Senokot Tab) 8.6 mg PO DAILY [facility] - Labs Labs: 12/20/17 06:20 12/20/17 06:20 Assessment and Plan (1) Metastatic breast carcinoma Status: Acute
--- NOTE | 2017-12-20 19:53 | CP.PCM.PN ---
Subjective - Date & Time of Evaluation Date of Evaluation: 12/20/17 Time of Evaluation: 10:00 - Subjective Subjective: PGY1 Medicine Note for Dr. Soto Patient seen and examined this morning at bedside. Patient states that she is still in pain but is feeling slightly better. She states that she had a little bit of an appetite and she was able to keep down her food. She states she has not had a bowel movement in approximately 3 to 4 days. She is scheduled for a brain MRI this afternoon. Patient denies fevers, chills, nausea, vomiting, SOB. Objective - Vital Signs/Intake and Output Vital Signs (last 24 hours): Temp Pulse Resp BP Pulse Ox 98.3 F 79 20 132/67 96 12/20/17 16:46 12/20/17 16:46 12/20/17 16:46 12/20/17 16:46 12/20/17 16:46 Intake and Output: 12/20/17 12/21/17 18:59 06:59 Intake Total 1400 Output Total 1000 Balance 400 - Medications Medications: Current Medications Dexamethasone (Decadron Inj) 4 mg IV BID [facility] Last Admin: 12/20/17 18:30 Dose: 4 mg Diazepam (Valium) 10 mg PO QPM [facility] Last Admin: 12/20/17 18:39 Dose: Not Given Docusate Sodium (Colace) 100 mg PO BID [facility] Last Admin: 12/20/17 11:15 Dose: 100 mg Enoxaparin Sodium (Lovenox) 30 mg SC DAILY [facility] Last Admin: 12/20/17 11:21 Dose: 30 mg Ergocalciferol (Drisdol 50,000 Intl Units Cap) 1 cap PO QWK [facility] Gabapentin (Neurontin) 100 mg PO DAILY [facility] Last Admin: 12/20/17 11:22 Dose: 100 mg Hydromorphone HCl (Dilaudid) 1 mg IVP Q6H PRN PRN Reason: Pain, severe (8-10) Last Admin: 12/19/17 21:13 Dose: 1 mg Hydromorphone HCl (Dilaudid) 0.5 mg IVP Q6H PRN PRN Reason: Pain, moderate (4-7) Last Admin: 12/20/17 18:38 Dose: 0.5 mg Hydromorphone HCl (Dilaudid) 1 mg IVP Q8H [facility] Last Admin: 12/20/17 18:37 Dose: Not Given Lorazepam (Ativan) 0.5 mg PO HS [facility] Ondansetron HCl (Zofran Inj) 4 mg IVP Q6H [facility] Last Admin: 12/20/17 18:42 Dose: Not Given Pantoprazole Sodium (Protonix Ec Tab) 40 mg PO DAILY [facility] Last Admin: 12/20/17 11:22 Dose: 40 mg Sennosides (Senokot Tab) 8.6 mg PO DAILY [facility] - Labs Labs: 12/20/17 06:20 12/20/17 06:20 - Constitutional Appears: Non-toxic, No Acute Distress - Head Exam Head Exam: ATRAUMATIC, NORMOCEPHALIC - Eye Exam Eye Exam: EOMI, Normal appearance - ENT Exam ENT Exam: Mucous Membranes Moist - Respiratory Exam Respiratory Exam: Clear to Ausculation Bilateral, NORMAL BREATHING PATTERN. absent: Accessory Muscle Use, Rales, Rhonchi, Wheezes, Respiratory Distress - Cardiovascular Exam Cardiovascular Exam: REGULAR RHYTHM, +S1 - GI/Abdominal Exam GI & Abdominal Exam: Soft, Normal Bowel Sounds. absent: Firm, Guarding, Rigid, Tenderness - Extremities Exam Extremities Exam: Normal Inspection. absent: Pedal Edema - Neurological Exam Neurological Exam: Alert, Awake, Oriented x3 - Psychiatric Exam Psychiatric exam: Normal Affect, Normal Mood - Skin Skin Exam: Dry, Warm Assessment and Plan - Assessment and Plan (Free Text) Plan: (1) Generalized pain Assessment and Plan: Secondary to Stage IV breast cancer with metastases Hematology and Oncology Consult, Dr. Diane Pain management: * Dilaudid 0.5mg IV Q6H prn---> moderate pain * Dilaudid 1 mg IV Q6H prn----> Severe pain Rapid Influenza test negative MRI of spine done on 12/18/17 showed metastasis to thoracic spine involving all segments. Small epidural tumor extension posterior to T12 segment which compresses the anterolateral borders of the thecal sac nearly reaching but not significantly compressing the spinal cord. Tumor extending laterally at T11- T12. Please see full report for details. (2) Metastatic breast cancer Assessment and Plan: Hematology and Oncology Consult, Dr. Diane ---> Help appreciated - Management as per recommendation - On chemotherapy Abdomen/Pelvis CT (12/13/17): Right breast prosthesis; multiple bilateral pulmonary nodules suspicious for metastases; hepatic lesions suspicious for metastases; MRi of spine shows diffuse mets to thoracic spine Chest X-ray (12/13/17):Patchy bilateral mid to lower lobe infiltrate changes with what may represent some concomitant atelectasis both lung bases Brain MRI 12/20/17: 1. 7 x 7 mm enhancing lesion with mild surrounding vasogenic edema in the left superior cerebellar hemisphere concerning for metastasis with the stated clinical history of breast cancer. 2. Few scattered 1-2 mm enhancing foci in the frontal and parietal white matter are nonspecific however superficial cortical metastasis is a consideration with the stated history of breast cancer. Short-term interval follow-up is advised. 3. Mild chronic microangiopathic changes and mild age-related global parenchymal volume loss. Per Dr. Diane, * Patient will begin Radiation Therapy over at [facility] * Dr. Rosemarie Holguin consulted * Will look to transfer patient to [facility] for completion of RT and rehab there. (3) Constipation Assessment and Plan: Colace 100mg PO BID One dose of Ducolax (4) Colitis Assessment and Plan: CT abdomen/Pelvis (12/13/17): descending colon colitis, ileus Discharge from [facility] on short term PO Cipro and Flagyl x 3 more days. Will advance diet (5) Diabetes mellitus Assessment and Plan: Stable Accuchecks F/u HgbA1c will reevaluation for need of ISS based on accuchecks (6) History of hypertension Assessment and Plan: Stable Reevaluate for need of inpatient medication based on vital signs Q4H (7) History of osteoporosis Assessment and Plan: Continue home medication: * Vitamin D 50,000 units weekly (8) Prophylactic measure Assessment and Plan: GI: Protonix 40mg PO daily DVT: Lovenox 30mg SC daily Palliative care consult Case discussed with Dr. Charles Perez Tommy PGY1
[2017-12-21 08:16] LABS: BASO % 0.5 % (0.0-2.0); EOS % 0.5 % (0.0-4.0); HEMOGLOBIN 12.7 g/dL (11.0-16.0); LYMPH # 0.8 K/uL (1.0-4.3); LYMPH % 16.5 % (20.0-40.0); MEAN CELL VOLUME 86.3 fL (81.0-99.0); MEAN CORPUSCULAR HEMOGLOBIN 28.8 pg (27.0-31.0); MEAN CORPUSCULAR HGB CONC 33.3 g/dL (33.0-37.0); MONO # 0.3 K/uL (0.0-0.8); NEUT # 3.7 K/uL (1.8-7.0); NEUT % 76.5 % (50.0-75.0); NRBC % 0.1 % (0.0-2.0); RBC 4.43 Mil/uL (3.80-5.20); RED CELL DISTRIBUTION WIDTH 17.3 % (11.5-14.5); WHITE BLOOD COUNT 4.8 K/uL (4.8-10.8)
[2017-12-21 08:33] LABS: ALB/GLOB RATIO 1.2 (1.0-2.1); ALBUMIN 3.5 g/dL (3.5-5.0); ALT/SGPT 25 U/L (9-52); AST/SGOT 31 U/L (14-36); BLOOD UREA NITROGEN 16 mg/dL (7-17); CALCIUM 10.3 mg/dl (8.6-10.4); GFR AFRICAN-AMERICAN > 60; GFR NON-AFRICAN AMERICAN > 60
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
[2017-12-21] MEDS: Dexamethasone 4 mg/1 ml IV SCH ×2 (10:29→19:21)
[2017-12-21] MEDS: Enoxaparin 30 mg Syringe SC SCH (10:30)
[2017-12-21] MEDS: Pantoprazole 40 mg EC Tab PO SCH (10:30)
[2017-12-21] MEDS ORDERED: POLYETHYLENE GLYCOL 3350 17 GM/Dose PACKET PO ONE (13:21)
[2017-12-21] MEDS ORDERED: Bisacodyl 5mg EC Tab PO ONE (13:26)
[2017-12-21] MEDS: HYDROmorphone 1 mg/5ml IVP SCH ×2 (14:51→22:30)
--- NOTE | 2017-12-21 16:57 | CP.PCM.PN ---
Subjective - Date & Time of Evaluation Date of Evaluation: 12/21/17 Time of Evaluation: 13:00 - Subjective Subjective: PGY1 Medicine Note for Dr. Soto Patient seen and examined this afternoon with family at bedside. Patient went to [facility] this morning to start whole brain Radiation Therapy. The patient states that she has still not had a bowel movement. She is requesting a suppository as this has worked for her in the past. Otherwise, the patient states that she is doing well. She needs to do 9 more treatments of RT and is requesting to stay at [facility] during her stay. Denies fevers, chills, nausea, vomiting, chest pain, abdominal pain, headache or shortness of breath. Objective - Vital Signs/Intake and Output Vital Signs (last 24 hours): Temp Pulse Resp BP Pulse Ox 98.2 F 102 H 20 117/65 90 L 12/21/17 16:36 12/21/17 16:36 12/21/17 16:36 12/21/17 16:36 12/21/17 16:36 Intake and Output: 12/21/17 12/21/17 06:59 18:59 Intake Total 700 Balance 700 - Medications Medications: Current Medications Dexamethasone (Decadron Inj) 4 mg IV BID [facility] Last Admin: 12/21/17 10:29 Dose: Not Given Diazepam (Valium) 10 mg PO QPM [facility] Last Admin: 12/20/17 18:39 Dose: Not Given Docusate Sodium (Colace) 100 mg PO BID [facility] Last Admin: 12/21/17 10:29 Dose: Not Given Enoxaparin Sodium (Lovenox) 30 mg SC DAILY [facility] Last Admin: 12/21/17 10:30 Dose: Not Given Ergocalciferol (Drisdol 50,000 Intl Units Cap) 1 cap PO QWK [facility] Gabapentin (Neurontin) 100 mg PO DAILY [facility] Last Admin: 12/21/17 10:30 Dose: Not Given Hydromorphone HCl (Dilaudid) 1 mg IVP Q8H [facility] Last Admin: 12/21/17 14:51 Dose: 1 mg Lorazepam (Ativan) 0.5 mg PO HS [facility] Last Admin: 12/20/17 22:24 Dose: 0.5 mg Ondansetron HCl (Zofran Inj) 4 mg IVP Q6H [facility] Last Admin: 12/21/17 13:15 Dose: Not Given Pantoprazole Sodium (Protonix Ec Tab) 40 mg PO DAILY [facility] Last Admin: 12/21/17 10:30 Dose: Not Given Sennosides (Senokot Tab) 8.6 mg PO DAILY [facility] Last Admin: 12/21/17 10:30 Dose: Not Given - Labs Labs: 12/21/17 07:59 12/21/17 07:59 - Constitutional Appears: Non-toxic, No Acute Distress - Head Exam Head Exam: ATRAUMATIC, NORMOCEPHALIC - Eye Exam Eye Exam: EOMI, Normal appearance Pupil Exam: NORMAL ACCOMODATION - ENT Exam ENT Exam: Mucous Membranes Moist Additional comments: Voice is very horse, difficult to hear. - Respiratory Exam Respiratory Exam: Clear to Ausculation Bilateral, NORMAL BREATHING PATTERN. absent: Accessory Muscle Use, Rales, Rhonchi, Wheezes, Respiratory Distress - Cardiovascular Exam Cardiovascular Exam: REGULAR RHYTHM, +S1, +S2 - GI/Abdominal Exam GI & Abdominal Exam: Soft, Normal Bowel Sounds. absent: Distended, Firm, Guarding, Rigid, Tenderness - Extremities Exam Extremities Exam: absent: Calf Tenderness - Neurological Exam Neurological Exam: Alert, Awake, Oriented x3 - Psychiatric Exam Psychiatric exam: Normal Affect, Normal Mood - Skin Skin Exam: Warm. absent: Dry Assessment and Plan - Assessment and Plan (Free Text) Plan: (1) Generalized pain Assessment and Plan: Secondary to Stage IV breast cancer with metastases Hematology and Oncology Consult, Dr. Diane Pain management: * Dilaudid 0.5mg IV Q6H prn---> moderate pain * Dilaudid 1 mg IV Q6H prn----> Severe pain Rapid Influenza test negative MRI of spine done on 12/18/17 showed metastasis to thoracic spine involving all segments. Small epidural tumor extension posterior to T12 segment which compresses the anterolateral borders of the thecal sac nearly reaching but not significantly compressing the spinal cord. Tumor extending laterally at T11- T12. Please see full report for details. (2) Metastatic breast cancer Hematology and Oncology Consult, Dr. Diane ---> Help appreciated - Management as per recommendation - On chemotherapy Abdomen/Pelvis CT (12/13/17): Right breast prosthesis; multiple bilateral pulmonary nodules suspicious for metastases; hepatic lesions suspicious for metastases; MRi of spine shows diffuse mets to thoracic spine Chest X-ray (12/13/17):Patchy bilateral mid to lower lobe infiltrate changes with what may represent some concomitant atelectasis both lung bases Brain MRI 12/20/17: 1. 7 x 7 mm enhancing lesion with mild surrounding vasogenic edema in the left superior cerebellar hemisphere concerning for metastasis with the stated clinical history of breast cancer. 2. Few scattered 1-2 mm enhancing foci in the frontal and parietal white matter are nonspecific however superficial cortical metastasis is a consideration with the stated history of breast cancer. Short-term interval follow-up is advised. 3. Mild chronic microangiopathic changes and mild age-related global parenchymal volume loss. * Patient began Radiation Therapy over at [facility] on 12/21/17 * Dr. Rosemarie Holguin consulted - Radiation Oncology * She will need a total of 10 sessions * Patient and family are requesting for patient to stay at [facility] and be transferred back and forth daily as she is comfortable at [facility]. (3) Constipation Colace 100mg PO BID One dose of Ducolax PO and ME If patient does not have a bowel movement by night time, will consider an enema. (4) Colitis CT abdomen/Pelvis (12/13/17): descending colon colitis, ileus Discharge from [facility] on short term PO Cipro and Flagyl x 3 more days. Will advance diet (5) Diabetes mellitus Stable Accuchecks F/u HgbA1c will reevaluation for need of ISS based on accuchecks (6) History of hypertension Stable Reevaluate for need of inpatient medication based on vital signs Q4H (7) History of osteoporosis Continue home medication: * Vitamin D 50,000 units weekly (8) Prophylactic measure GI: Protonix 40mg PO daily DVT: Lovenox 30mg SC daily Palliative care consult Case discussed with Dr. Charles Perez Tommy PGY1
[2017-12-22] MEDS: HYDROmorphone 1 mg/5ml IVP SCH ×3 (06:21→22:11)
[2017-12-22 07:54] LABS: BASO % 0.3 % (0.0-2.0); EOS % 0.4 % (0.0-4.0); HEMOGLOBIN 12.4 g/dL (11.0-16.0); LYMPH # 0.6 K/uL (1.0-4.3); LYMPH % 10.9 % (20.0-40.0); MEAN CELL VOLUME 85.9 fL (81.0-99.0); MEAN CORPUSCULAR HEMOGLOBIN 28.7 pg (27.0-31.0); MEAN CORPUSCULAR HGB CONC 33.4 g/dL (33.0-37.0); MEAN PLATELET VOLUME 9.2 fL (7.2-11.7); MONO # 0.3 K/uL (0.0-0.8); MONO % 4.6 % (0.0-10.0); NEUT # 4.8 K/uL (1.8-7.0); NEUT % 83.8 % (50.0-75.0); NRBC % 0.1 % (0.0-2.0); RBC 4.32 Mil/uL (3.80-5.20); WHITE BLOOD COUNT 5.7 K/uL (4.8-10.8)
[2017-12-22 08:05] LABS: ALB/GLOB RATIO 1.3 (1.0-2.1); ALBUMIN 3.6 g/dL (3.5-5.0); ALT/SGPT 22 U/L (9-52); AST/SGOT 32 U/L (14-36); BLOOD UREA NITROGEN 16 mg/dL (7-17); CALCIUM 9.9 mg/dl (8.6-10.4); GFR AFRICAN-AMERICAN > 60; GFR NON-AFRICAN AMERICAN > 60
[2017-12-22] MEDS: Enoxaparin 30 mg Syringe SC SCH (10:13)
[2017-12-22] MEDS: Dexamethasone 4 mg/1 ml IV SCH ×2 (10:13→17:53)
[2017-12-22] MEDS: Pantoprazole 40 mg EC Tab PO SCH (10:14)
--- NOTE | 2017-12-22 11:32 | CP.PCM.PN ---
Subjective - Date & Time of Evaluation Date of Evaluation: 12/22/17 Time of Evaluation: 09:45 - Subjective Subjective: PGY1 Medicine Note for Dr. Soto Patient seen and examined at bedside this morning. Patient had her second day of whole brain radiation therapy. Patient states that she still has a decreased appetite, but she thinks that it is because she still has not pooped. She feels bloated but the pain is not very bad at the moment. She is passing minimal flatus and feels like she needs to have a bowel movement but when she attempts, nothing comes out. Denies fevers, chills, nausea, vomiting, chest pain, abdominal pain, headache or shortness of breath. Objective - Vital Signs/Intake and Output Vital Signs (last 24 hours): Temp Pulse Resp BP Pulse Ox 97.9 F 78 20 116/65 97 12/22/17 07:58 12/22/17 07:58 12/22/17 07:58 12/22/17 07:58 12/22/17 07:58 Intake and Output: 12/22/17 12/22/17 06:59 18:59 Intake Total 350 Balance 350 - Medications Medications: Current Medications Dexamethasone (Decadron Inj) 4 mg IV BID [facility] Last Admin: 12/22/17 10:13 Dose: 4 mg Diazepam (Valium) 10 mg PO QPM [facility] Last Admin: 12/21/17 18:30 Dose: Not Given Docusate Sodium (Colace) 100 mg PO BID [facility] Last Admin: 12/22/17 10:12 Dose: 100 mg Enoxaparin Sodium (Lovenox) 30 mg SC DAILY [facility] Last Admin: 12/22/17 10:13 Dose: 30 mg Ergocalciferol (Drisdol 50,000 Intl Units Cap) 1 cap PO QWK [facility] Gabapentin (Neurontin) 100 mg PO DAILY [facility] Last Admin: 12/22/17 10:14 Dose: 100 mg Hydromorphone HCl (Dilaudid) 1 mg IVP Q8H [facility] Last Admin: 12/22/17 06:21 Dose: 1 mg Lorazepam (Ativan) 0.5 mg PO HS [facility] Last Admin: 12/21/17 21:27 Dose: 0.5 mg Ondansetron HCl (Zofran Inj) 4 mg IVP Q6H [facility] Last Admin: 12/22/17 06:21 Dose: 4 mg Pantoprazole Sodium (Protonix Ec Tab) 40 mg PO DAILY [facility] Last Admin: 12/22/17 10:14 Dose: 40 mg Sennosides (Senokot Tab) 8.6 mg PO DAILY [facility] Last Admin: 12/22/17 10:14 Dose: 8.6 mg - Labs Labs: 12/22/17 07:11 12/22/17 07:11 - Constitutional Appears: Non-toxic, No Acute Distress - Head Exam Head Exam: ATRAUMATIC, NORMOCEPHALIC - Eye Exam Eye Exam: EOMI, Normal appearance Pupil Exam: NORMAL ACCOMODATION - ENT Exam ENT Exam: Mucous Membranes Moist - Respiratory Exam Respiratory Exam: Clear to Ausculation Bilateral, NORMAL BREATHING PATTERN. absent: Accessory Muscle Use, Rales, Rhonchi, Wheezes, Respiratory Distress - Cardiovascular Exam Cardiovascular Exam: REGULAR RHYTHM, +S1 - GI/Abdominal Exam GI & Abdominal Exam: Distended, Soft, Normal Bowel Sounds. absent: Firm, Guarding, Rigid, Tenderness - Extremities Exam Extremities Exam: absent: Calf Tenderness, Pedal Edema - Neurological Exam Neurological Exam: Alert, Awake, Oriented x3 - Psychiatric Exam Psychiatric exam: Normal Affect, Normal Mood - Skin Skin Exam: Dry, Warm Assessment and Plan - Assessment and Plan (Free Text) Plan: (1) Generalized pain Assessment and Plan: Secondary to Stage IV breast cancer with metastases Hematology and Oncology Consult, Dr. Diane Pain management: * Dilaudid 0.5mg IV Q6H prn---> moderate pain * Dilaudid 1 mg IV Q6H prn----> Severe pain Rapid Influenza test negative MRI of spine done on 12/18/17 showed metastasis to thoracic spine involving all segments. Small epidural tumor extension posterior to T12 segment which compresses the anterolateral borders of the thecal sac nearly reaching but not significantly compressing the spinal cord. Tumor extending laterally at T11- T12. Please see full report for details. (2) Metastatic breast cancer Hematology and Oncology Consult, Dr. Diane ---> Help appreciated - Management as per recommendation - On chemotherapy Abdomen/Pelvis CT (12/13/17): Right breast prosthesis; multiple bilateral pulmonary nodules suspicious for metastases; hepatic lesions suspicious for metastases; MRi of spine shows diffuse mets to thoracic spine Chest X-ray (12/13/17):Patchy bilateral mid to lower lobe infiltrate changes with what may represent some concomitant atelectasis both lung bases Brain MRI 12/20/17: 1. 7 x 7 mm enhancing lesion with mild surrounding vasogenic edema in the left superior cerebellar hemisphere concerning for metastasis with the stated clinical history of breast cancer. 2. Few scattered 1-2 mm enhancing foci in the frontal and parietal white matter are nonspecific however superficial cortical metastasis is a consideration with the stated history of breast cancer. Short-term interval follow-up is advised. 3. Mild chronic microangiopathic changes and mild age-related global parenchymal volume loss. * Patient began Radiation Therapy over at [facility] on 12/21/17 * Dr. Rosemarie Holguin consulted - Radiation Oncology * She will need a total of 10 sessions * Patient and family are requesting for patient to stay at [facility] and be transferred back and forth daily as she is comfortable at [facility]. (3) Constipation Colace 100mg PO BID One dose of Ducolax PO and PA If patient does not have a bowel movement by night time, will consider an enema. (4) Colitis CT abdomen/Pelvis (12/13/17): descending colon colitis, ileus Discharge from [facility] on short term PO Cipro and Flagyl x 3 more days. Will advance diet (5) Diabetes mellitus Stable Accuchecks F/u HgbA1c will reevaluation for need of ISS based on accuchecks (6) History of hypertension Stable Reevaluate for need of inpatient medication based on vital signs Q4H (7) History of osteoporosis Continue home medication: * Vitamin D 50,000 units weekly (8) Prophylactic measure GI: Protonix 40mg PO daily DVT: Lovenox 30mg SC daily Palliative care consult DISPO: Dr. Soto will attempt to reach Dr. Diane to discuss options to allow patient to continue to get treatment possibly as an outpatient. Case discussed with Dr. Charles Perez Tommy PGY1
[2017-12-23] MEDS: HYDROmorphone 1 mg/5ml IVP SCH ×3 (06:19→21:36)
[2017-12-23 08:20] LABS: BASO % 0.2 % (0.0-2.0); EOS % 0.1 % (0.0-4.0); HEMOGLOBIN 12.1 g/dL (11.0-16.0); LYMPH # 0.6 K/uL (1.0-4.3); LYMPH % 11.9 % (20.0-40.0); MEAN CELL VOLUME 85.6 fL (81.0-99.0); MEAN CORPUSCULAR HEMOGLOBIN 28.6 pg (27.0-31.0); MEAN CORPUSCULAR HGB CONC 33.4 g/dL (33.0-37.0); MEAN PLATELET VOLUME 8.8 fL (7.2-11.7); MONO # 0.3 K/uL (0.0-0.8); NEUT # 4.2 K/uL (1.8-7.0); NEUT % 81.8 % (50.0-75.0); RBC 4.23 Mil/uL (3.80-5.20); RED CELL DISTRIBUTION WIDTH 17.4 % (11.5-14.5); WHITE BLOOD COUNT 5.2 K/uL (4.8-10.8)
[2017-12-23 09:03] LABS: ALB/GLOB RATIO 1.1 (1.0-2.1); ALBUMIN 3.3 g/dL (3.5-5.0); ALT/SGPT 30 U/L (9-52); AST/SGOT 31 U/L (14-36); BLOOD UREA NITROGEN 16 mg/dL (7-17); CALCIUM 9.1 mg/dl (8.6-10.4); GFR AFRICAN-AMERICAN > 60; GFR NON-AFRICAN AMERICAN > 60
[2017-12-23] MEDS: Ergocalciferol 50,000 Intl Units Cap PO SCH (09:45)
[2017-12-23] MEDS: Pantoprazole 40 mg EC Tab PO SCH (09:45)
[2017-12-23] MEDS: Dexamethasone 4 mg/1 ml IV SCH ×2 (09:45→17:29)
[2017-12-23] MEDS: Enoxaparin 30 mg Syringe SC SCH (09:45)
[2017-12-23] MEDS ORDERED: Mineral Oil Enema 135 ml PR ONE (12:00)
--- NOTE | 2017-12-23 14:24 | CP.PCM.PN ---
Subjective - Date & Time of Evaluation Date of Evaluation: 12/23/17 Time of Evaluation: 08:00 - Subjective Subjective: PGY1 Medicine Note for Dr. Soto Patient seen and examine at bedside this morning. Patient states she has been able to eat a little bit more today. She states she is still constipated despite two fleet enemas. She is tolerating her radiation therapy well. Denies fevers, chills, nausea, vomiting, chest pain, abdominal pain, headache or shortness of breath. Objective - Vital Signs/Intake and Output Vital Signs (last 24 hours): Temp Pulse Resp BP Pulse Ox 97.1 F L 84 20 128/68 95 12/23/17 07:45 12/23/17 07:45 12/23/17 07:45 12/23/17 07:45 12/23/17 07:45 Intake and Output: 12/23/17 12/23/17 06:59 18:59 Intake Total 300 Balance 300 - Medications Medications: Current Medications Dexamethasone (Decadron Inj) 4 mg IV BID [facility] Last Admin: 12/23/17 09:45 Dose: 4 mg Diazepam (Valium) 10 mg PO QPM [facility] Last Admin: 12/22/17 18:05 Dose: 10 mg Docusate Sodium (Colace) 100 mg PO BID [facility] Last Admin: 12/23/17 09:45 Dose: 100 mg Enoxaparin Sodium (Lovenox) 30 mg SC DAILY [facility] Last Admin: 12/23/17 09:45 Dose: 30 mg Ergocalciferol (Drisdol 50,000 Intl Units Cap) 1 cap PO QWK [facility] Last Admin: 12/23/17 09:45 Dose: 1 cap Gabapentin (Neurontin) 100 mg PO DAILY [facility] Last Admin: 12/23/17 09:45 Dose: 100 mg Hydromorphone HCl (Dilaudid) 1 mg IVP Q8H [facility] Last Admin: 12/23/17 06:19 Dose: 1 mg Lorazepam (Ativan) 0.5 mg PO HS [facility] Last Admin: 12/22/17 21:30 Dose: 0.5 mg Ondansetron HCl (Zofran Inj) 4 mg IVP Q6H [facility] Last Admin: 12/23/17 11:54 Dose: 4 mg Pantoprazole Sodium (Protonix Ec Tab) 40 mg PO DAILY [facility] Last Admin: 12/23/17 09:45 Dose: 40 mg Sennosides (Senokot Tab) 8.6 mg PO DAILY [facility] Last Admin: 12/23/17 09:45 Dose: 8.6 mg - Labs Labs: 12/23/17 08:04 12/23/17 08:04 - Constitutional Appears: Non-toxic, No Acute Distress - Head Exam Head Exam: ATRAUMATIC, NORMOCEPHALIC - Eye Exam Eye Exam: EOMI, Normal appearance Pupil Exam: NORMAL ACCOMODATION - ENT Exam ENT Exam: Mucous Membranes Moist - Respiratory Exam Respiratory Exam: Clear to Ausculation Bilateral, NORMAL BREATHING PATTERN. absent: Accessory Muscle Use, Rales, Rhonchi, Wheezes, Respiratory Distress - Cardiovascular Exam Cardiovascular Exam: REGULAR RHYTHM, +S1, +S2 - GI/Abdominal Exam GI & Abdominal Exam: Soft, Normal Bowel Sounds. absent: Distended, Firm, Guarding, Rigid, Tenderness - Extremities Exam Extremities Exam: absent: Calf Tenderness, Pedal Edema - Neurological Exam Neurological Exam: Alert, Awake, Oriented x3 - Psychiatric Exam Psychiatric exam: Normal Affect, Normal Mood - Skin Skin Exam: Dry, Warm Assessment and Plan - Assessment and Plan (Free Text) Plan: (1) Generalized pain Assessment and Plan: Secondary to Stage IV breast cancer with metastases Hematology and Oncology Consult, Dr. Diane Pain management: * Dilaudid 0.5mg IV Q6H prn---> moderate pain * Dilaudid 1 mg IV Q6H prn----> Severe pain Rapid Influenza test negative MRI of spine done on 12/18/17 showed metastasis to thoracic spine involving all segments. Small epidural tumor extension posterior to T12 segment which compresses the anterolateral borders of the thecal sac nearly reaching but not significantly compressing the spinal cord. Tumor extending laterally at T11- T12. Please see full report for details. (2) Metastatic breast cancer Hematology and Oncology Consult, Dr. Diane ---> Help appreciated - Management as per recommendation - On chemotherapy Abdomen/Pelvis CT (12/13/17): Right breast prosthesis; multiple bilateral pulmonary nodules suspicious for metastases; hepatic lesions suspicious for metastases; MRi of spine shows diffuse mets to thoracic spine Chest X-ray (12/13/17):Patchy bilateral mid to lower lobe infiltrate changes with what may represent some concomitant atelectasis both lung bases Brain MRI 12/20/17: 1. 7 x 7 mm enhancing lesion with mild surrounding vasogenic edema in the left superior cerebellar hemisphere concerning for metastasis with the stated clinical history of breast cancer. 2. Few scattered 1-2 mm enhancing foci in the frontal and parietal white matter are nonspecific however superficial cortical metastasis is a consideration with the stated history of breast cancer. Short-term interval follow-up is advised. 3. Mild chronic microangiopathic changes and mild age-related global parenchymal volume loss. * Patient began Radiation Therapy over at [facility] on 12/21/17 * Dr. Rosemarie Holguin consulted - Radiation Oncology * She will need a total of 10 sessions * Patient and family were requesting for patient to stay at [facility] and be transferred back and forth daily as she is comfortable at [facility]. As of today, patient may be open to doing Radiation Therapy from home if transportation is set up in advance. (3) Constipation Colace 100mg PO BID One dose of Ducolax PO and [place] If patient does not have a bowel movement by night time, will consider an enema. (4) Colitis CT abdomen/Pelvis (12/13/17): descending colon colitis, ileus Discharge from [facility] on short term PO Cipro and Flagyl x 3 more days. Will advance diet as tolerated (5) Diabetes mellitus Elevated BS - likely secondary to initiation of Decadron Accuchecks will reevaluation for need of ISS based on accuchecks (6) History of hypertension Stable Reevaluate for need of inpatient medication based on vital signs Q4H (7) History of osteoporosis Continue home medication: * Vitamin D 50,000 units weekly (8) Prophylactic measure GI: Protonix 40mg PO daily DVT: Lovenox 30mg SC daily Palliative care consult DISPO: Awaiting call back from Dr. Diane to discuss options to allow patient to continue to get treatment possibly as an outpatient. Patient may be open to doing Radiation Therapy from home if transportation is set up in advance. Case discussed with Dr. Charles Perez Tommy PGY1
[2017-12-23] MEDS ORDERED: Magnesium Citrate Oral SOL (300 ml) PO ONE (21:17)
--- NOTE | 2017-12-23 21:17 | CP.PCM.PN ---
Subjective - Date & Time of Evaluation Date of Evaluation: 12/23/17 Time of Evaluation: 21:13 - Subjective Subjective: The patient is eating better, no nausea, vomiting, still constipated. Tolerating RT well. High sugars with decadron. Objective - Vital Signs/Intake and Output Vital Signs (last 24 hours): Temp Pulse Resp BP Pulse Ox 98.3 F 82 20 117/69 98 12/23/17 16:00 12/23/17 16:00 12/23/17 16:00 12/23/17 16:00 12/23/17 16:00 Intake and Output: 12/23/17 12/24/17 18:59 06:59 Intake Total 400 Balance 400 - Medications Medications: Current Medications Dexamethasone (Decadron) 4 mg PO DAILY [facility] Diazepam (Valium) 10 mg PO QPM [facility] Last Admin: 12/22/17 18:05 Dose: 10 mg Docusate Sodium (Colace) 100 mg PO BID [facility] Last Admin: 12/23/17 17:29 Dose: 100 mg Enoxaparin Sodium (Lovenox) 30 mg SC DAILY [facility] Last Admin: 12/23/17 09:45 Dose: 30 mg Ergocalciferol (Drisdol 50,000 Intl Units Cap) 1 cap PO QWK [facility] Last Admin: 12/23/17 09:45 Dose: 1 cap Gabapentin (Neurontin) 100 mg PO DAILY [facility] Last Admin: 12/23/17 09:45 Dose: 100 mg Hydromorphone HCl (Dilaudid) 1 mg IVP Q8H [facility] Last Admin: 12/23/17 14:29 Dose: 1 mg Lorazepam (Ativan) 0.5 mg PO HS [facility] Last Admin: 12/22/17 21:30 Dose: 0.5 mg Ondansetron HCl (Zofran Inj) 4 mg IVP Q6H [facility] Last Admin: 12/23/17 19:23 Dose: 4 mg Pantoprazole Sodium (Protonix Ec Tab) 40 mg PO DAILY [facility] Last Admin: 12/23/17 09:45 Dose: 40 mg Sennosides (Senokot Tab) 8.6 mg PO DAILY [facility] Last Admin: 12/23/17 09:45 Dose: 8.6 mg - Labs Labs: 12/23/17 08:04 12/23/17 08:04 Assessment and Plan (1) Metastatic breast carcinoma Assessment & Plan: Widely metastatic breast cancer, getting palliative WBRT. The patient and the family are aware of the prognosis. The patient is willing to get RT from home as long as she has transportation arranged. ? T- spine Rt after WBRT. Taper Decadron Status: Acute
[2017-12-24] MEDS: HYDROmorphone 0.5 mg/0.5 ml ISec IVP SCH ×3 (06:04→22:10)
[2017-12-24] MEDS: Enoxaparin 30 mg Syringe SC SCH (09:20)
[2017-12-24] MEDS: Pantoprazole 40 mg EC Tab PO SCH (09:21)
--- NOTE | 2017-12-24 16:35 | CP.PCM.PN ---
Subjective - Date & Time of Evaluation Date of Evaluation: 12/24/17 Time of Evaluation: 09:00 - Subjective Subjective: PGY1 Medicine Note for Dr. Soto Patient seen and examined at bedside this morning. Patient states she has still not had a bowel movement. She is tolerating her radiation therapy well. Denies fevers, chills, nausea, vomiting, chest pain, abdominal pain, headache or shortness of breath. Objective - Vital Signs/Intake and Output Vital Signs (last 24 hours): Temp Pulse Resp BP Pulse Ox 98.2 F 87 20 138/78 93 L 12/24/17 07:35 12/24/17 15:48 12/24/17 07:35 12/24/17 15:48 12/24/17 15:48 Intake and Output: 12/24/17 12/24/17 06:59 18:59 Intake Total 680 Balance 680 - Medications Medications: Current Medications Dexamethasone (Decadron) 4 mg PO DAILY [facility] Last Admin: 12/24/17 09:19 Dose: 4 mg Diazepam (Valium) 10 mg PO QPM [facility] Last Admin: 12/23/17 18:00 Dose: Not Given Docusate Sodium (Colace) 100 mg PO BID [facility] Last Admin: 12/24/17 09:19 Dose: 100 mg Ergocalciferol (Drisdol 50,000 Intl Units Cap) 1 cap PO QWK [facility] Last Admin: 12/23/17 09:45 Dose: 1 cap Gabapentin (Neurontin) 100 mg PO DAILY [facility] Last Admin: 12/24/17 09:21 Dose: 100 mg Hydromorphone HCl (Dilaudid) 1 mg IVP Q8H [facility] Last Admin: 12/24/17 13:44 Dose: 1 mg Lorazepam (Ativan) 0.5 mg PO HS [facility] Last Admin: 12/23/17 21:36 Dose: Not Given Ondansetron HCl (Zofran Inj) 4 mg IVP Q6H [facility] Last Admin: 12/24/17 12:30 Dose: 4 mg Pantoprazole Sodium (Protonix Ec Tab) 40 mg PO DAILY [facility] Last Admin: 12/24/17 09:21 Dose: 40 mg Sennosides (Senokot Tab) 8.6 mg PO DAILY [facility] Last Admin: 12/24/17 09:22 Dose: 8.6 mg - Labs Labs: 12/23/17 08:04 12/23/17 08:04 - Constitutional Appears: Non-toxic, No Acute Distress - Head Exam Head Exam: ATRAUMATIC, NORMOCEPHALIC - Eye Exam Eye Exam: EOMI, Normal appearance Pupil Exam: PERRL - ENT Exam ENT Exam: Mucous Membranes Moist - Respiratory Exam Respiratory Exam: Accessory Muscle Use, Clear to Ausculation Bilateral, Wheezes , NORMAL BREATHING PATTERN. absent: Rales, Rhonchi, Respiratory Distress - Cardiovascular Exam Cardiovascular Exam: REGULAR RHYTHM, +S1 - GI/Abdominal Exam GI & Abdominal Exam: Distended, Soft, Normal Bowel Sounds. absent: Firm, Guarding, Rigid, Rebound - Rectal Exam Rectal Exam: NORMAL INSPECTION Additional comments: Digital rectal exam performed, attempted disimpaction. No stool located in rectal vault. - Extremities Exam Extremities Exam: absent: Calf Tenderness, Tenderness - Neurological Exam Neurological Exam: Alert, Awake, Oriented x3 - Psychiatric Exam Psychiatric exam: Normal Affect, Normal Mood - Skin Skin Exam: Dry, Warm Assessment and Plan - Assessment and Plan (Free Text) Plan: (1) Generalized pain Assessment and Plan: Secondary to Stage IV breast cancer with metastases Hematology and Oncology Consult, Dr. Diane Pain management: * Dilaudid 0.5mg IV Q6H prn---> moderate pain * Dilaudid 1 mg IV Q6H prn----> Severe pain Rapid Influenza test negative MRI of spine done on 12/18/17 showed metastasis to thoracic spine involving all segments. Small epidural tumor extension posterior to T12 segment which compresses the anterolateral borders of the thecal sac nearly reaching but not significantly compressing the spinal cord. Tumor extending laterally at T11- T12. Please see full report for details. (2) Metastatic breast cancer Hematology and Oncology Consult, Dr. Diane ---> Help appreciated - Management as per recommendation - On chemotherapy Abdomen/Pelvis CT (12/13/17): Right breast prosthesis; multiple bilateral pulmonary nodules suspicious for metastases; hepatic lesions suspicious for metastases; MRi of spine shows diffuse mets to thoracic spine Chest X-ray (12/13/17):Patchy bilateral mid to lower lobe infiltrate changes with what may represent some concomitant atelectasis both lung bases Brain MRI 12/20/17: 1. 7 x 7 mm enhancing lesion with mild surrounding vasogenic edema in the left superior cerebellar hemisphere concerning for metastasis with the stated clinical history of breast cancer. 2. Few scattered 1-2 mm enhancing foci in the frontal and parietal white matter are nonspecific however superficial cortical metastasis is a consideration with the stated history of breast cancer. Short-term interval follow-up is advised. 3. Mild chronic microangiopathic changes and mild age-related global parenchymal volume loss. * Patient began Radiation Therapy over at [facility] on 12/21/17 * Dr. Rosemarie Holguin consulted - Radiation Oncology * She will need a total of 10 sessions * Patient and family were requesting for patient to stay at [facility] and be transferred back and forth daily as she is comfortable at [facility]. As of today, patient may be open to doing Radiation Therapy from home if transportation is set up in advance. (3) Constipation Colace 100mg PO BID One dose of Ducolax PO and [place] If patient does not have a bowel movement by night time, will consider an enema. (4) Colitis CT abdomen/Pelvis (12/13/17): descending colon colitis, ileus Discharge from [facility] on short term PO Cipro and Flagyl x 3 more days. Will advance diet as tolerated (5) Diabetes mellitus Elevated BS - likely secondary to initiation of Decadron Accuchecks will reevaluation for need of ISS based on accuchecks (6) History of hypertension Stable Reevaluate for need of inpatient medication based on vital signs Q4H (7) History of osteoporosis Continue home medication: * Vitamin D 50,000 units weekly (8) Prophylactic measure GI: Protonix 40mg PO daily DVT: Lovenox 30mg SC daily Palliative care consult DISPO: Once patient has bowel movement, she states she would be open to being discharged home as long as transportation is set up in advance to allow her to make it to her Radiation Therapy sessions at [facility]. Case discussed with Dr. Charles Perez Tommy PGY1
[2017-12-25 07:23] LABS: BASO % 0.1 % (0.0-2.0); EOS # 0.1 K/uL (0.0-0.7); EOS % 0.8 % (0.0-4.0); HEMOGLOBIN 12.4 g/dL (11.0-16.0); LYMPH # 0.7 K/uL (1.0-4.3); LYMPH % 9.6 % (20.0-40.0); MEAN CELL VOLUME 85.7 fL (81.0-99.0); MEAN CORPUSCULAR HEMOGLOBIN 28.7 pg (27.0-31.0); MEAN CORPUSCULAR HGB CONC 33.5 g/dL (33.0-37.0); MEAN PLATELET VOLUME 8.8 fL (7.2-11.7); MONO # 0.5 K/uL (0.0-0.8); MONO % 7.4 % (0.0-10.0); NEUT # 5.8 K/uL (1.8-7.0); NEUT % 82.1 % (50.0-75.0); PLATELET COUNT 177 K/uL (130-400); RBC 4.32 Mil/uL (3.80-5.20); RED CELL DISTRIBUTION WIDTH 17.1 % (11.5-14.5); WHITE BLOOD COUNT 7.1 K/uL (4.8-10.8)
[2017-12-25 07:55] LABS: ALB/GLOB RATIO 1.3 (1.0-2.1); ALBUMIN 3.6 g/dL (3.5-5.0); ALT/SGPT 36 U/L (9-52); AST/SGOT 41 U/L (14-36); BLOOD UREA NITROGEN 18 mg/dL (7-17); CALCIUM 9.6 mg/dl (8.6-10.4); GFR AFRICAN-AMERICAN > 60; GFR NON-AFRICAN AMERICAN > 60
[2017-12-25] MEDS ORDERED: Magnesium Citrate Oral SOL (300 ml) PO ONE (09:08)
[2017-12-25 09:35] LABS: ANISOCYTOSIS SLIGHT; LYMPHOCYTE 7 % (20-40); MICROCYTOSIS SLIGHT; MONOCYTE 9 % (0-10); NEUTROPHIL 84 % (50-75); OVALOCYTES SLIGHT; PLATELET ESTIMATE NORMAL (NORMAL); POIKILOCYTOSIS SLIGHT; TOTAL CELLS COUNTED 100
[2017-12-25 09:36] LABS: TEARDROP CELLS SLIGHT
[2017-12-25] MEDS: POLYETHYLENE GLYCOL 3350 17 GM/Dose PACKET PO SCH ×2 (10:09→18:21)
[2017-12-25] MEDS: Pantoprazole 40 mg EC Tab PO SCH (10:09)
--- NOTE | 2017-12-25 17:21 | CP.PCM.PN ---
Subjective - Date & Time of Evaluation Date of Evaluation: 12/25/17 Time of Evaluation: 17:22 - Subjective Subjective: PGY2 Medicine Note for Dr. Soto Patient was seen and examined at bedside; states she still hasn't had a full bowel movement even after all therapies offered; patient denies all other symptoms of fevers/chills, VITAL, CP, SOb, dysuria/ferq/urg, or lower extremity pain/swelling. Objective - Vital Signs/Intake and Output Vital Signs (last 24 hours): Temp Pulse Resp BP Pulse Ox 97.9 F 89 20 125/71 95 12/25/17 07:57 12/25/17 07:57 12/25/17 07:57 12/25/17 07:57 12/25/17 07:57 Intake and Output: 12/25/17 12/25/17 06:59 18:59 Intake Total 450 850 Balance 450 850 - Medications Medications: Current Medications Dexamethasone (Decadron) 4 mg PO DAILY [facility] Last Admin: 12/25/17 10:09 Dose: 4 mg Docusate Sodium (Colace) 100 mg PO BID [facility] Last Admin: 12/25/17 10:09 Dose: 100 mg Ergocalciferol (Drisdol 50,000 Intl Units Cap) 1 cap PO QWK [facility] Last Admin: 12/23/17 09:45 Dose: 1 cap Gabapentin (Neurontin) 100 mg PO DAILY [facility] Last Admin: 12/25/17 10:09 Dose: 100 mg Hydromorphone HCl (Dilaudid) 1 mg IVP Q8H [facility] Last Admin: 12/25/17 13:17 Dose: Not Given Lactulose (Enulose) 20 gm PO Q8H [facility] Last Admin: 12/25/17 10:11 Dose: 20 gm Lorazepam (Ativan) 0.5 mg PO HS [facility] Last Admin: 12/24/17 22:10 Dose: 0.5 mg Ondansetron HCl (Zofran Inj) 4 mg IVP Q6H [facility] Last Admin: 12/25/17 13:17 Dose: Not Given Pantoprazole Sodium (Protonix Ec Tab) 40 mg PO DAILY [facility] Last Admin: 12/25/17 10:09 Dose: 40 mg Polyethylene Glycol (Miralax) 17 gm PO BID [facility] Last Admin: 12/25/17 10:09 Dose: 17 gm Sennosides (Senokot Tab) 8.6 mg PO DAILY [facility] Last Admin: 12/25/17 10:09 Dose: 8.6 mg - Labs Labs: 12/25/17 07:09 12/25/17 07:09 - Constitutional Appears: Non-toxic, Chronically Ill - Head Exam Head Exam: ATRAUMATIC - Eye Exam Eye Exam: EOMI, Scleral icterus - ENT Exam ENT Exam: Mucous Membranes Moist - Neck Exam Neck Exam: Full ROM - Respiratory Exam Respiratory Exam: Clear to Ausculation Bilateral, NORMAL BREATHING PATTERN. absent: Rales, Rhonchi, Wheezes - Cardiovascular Exam Cardiovascular Exam: REGULAR RHYTHM, +S1, +S2 - GI/Abdominal Exam GI & Abdominal Exam: Tenderness (enlarged abdomen 2/2 to stool), Normal Bowel Sounds. absent: Organomegaly - Extremities Exam Extremities Exam: Full ROM. absent: Calf Tenderness - Neurological Exam Neurological Exam: Alert, Awake, Oriented x3 - Psychiatric Exam Psychiatric exam: Normal Affect - Skin Skin Exam: Warm Assessment and Plan - Assessment and Plan (Free Text) Assessment: Generalized pain 2/2 to metastatic cancer Secondary to Stage IV breast cancer with metastases Hematology and Oncology Consult, Dr. Diane Pain management: * Dilaudid 0.5mg IV Q6H prn---> moderate pain * Dilaudid 1 mg IV Q6H prn----> Severe pain patient has siginficant opiod induced constipation; will benefit from either Relastor or Movantik on d/c to prevent further constipation Rapid Influenza test negative MRI of spine done on 12/18/17 showed metastasis to thoracic spine involving all segments. Small epidural tumor extension posterior to T12 segment which compresses the anterolateral borders of the thecal sac nearly reaching but not significantly compressing the spinal cord. Tumor extending laterally at T11- T12. Please see full report for details. Metastatic breast cancer;chronic Hematology and Oncology Consult, Dr. Diane ---> Help appreciated - Management as per recommendation - On chemotherapy Abdomen/Pelvis CT (12/13/17): Right breast prosthesis; multiple bilateral pulmonary nodules suspicious for metastases; hepatic lesions suspicious for metastases; MRi of spine shows diffuse mets to thoracic spine Chest X-ray (12/13/17):Patchy bilateral mid to lower lobe infiltrate changes with what may represent some concomitant atelectasis both lung bases Brain MRI 12/20/17: 1. 7 x 7 mm enhancing lesion with mild surrounding vasogenic edema in the left superior cerebellar hemisphere concerning for metastasis with the stated clinical history of breast cancer. 2. Few scattered 1-2 mm enhancing foci in the frontal and parietal white matter are nonspecific however superficial cortical metastasis is a consideration with the stated history of breast cancer. Short-term interval follow-up is advised. 3. Mild chronic microangiopathic changes and mild age-related global parenchymal volume loss. * Patient began Radiation Therapy over at [facility] on 12/21/17 * Dr. Rosemarie Holguin consulted - Radiation Oncology * She will need a total of 10 sessions * Patient and family were requesting for patient to stay at [facility] and be transferred back and forth daily as she is comfortable at [facility]. As of today, patient may be open to doing Radiation Therapy from home if transportation is set up in advance. Constipation;chronic opiod induced 8 cups of prune juice 2 doses of miralax 1 dose of lactulose 1 dose of mag citrate 2 enema Small bowel movement today Colitis CT abdomen/Pelvis (12/13/17): descending colon colitis, ileus Discharge from [facility] on short term PO Cipro and Flagyl x 3 more days. Will advance diet as tolerated Diabetes mellitus Elevated BS - likely secondary to initiation of Decadron Accuchecks will reevaluation for need of ISS based on accuchecks History of hypertension Stable Reevaluate for need of inpatient medication based on vital signs Q4H History of osteoporosis Continue home medication: * Vitamin D 50,000 units weekly Prophylactic measure GI: Protonix 40mg PO daily DVT: Lovenox 30mg SC daily Palliative care consult DISPO: Once patient has bowel movement, she states she would be open to being discharged home as long as transportation is set up in advance to allow her to make it to her Radiation Therapy sessions at [facility]. -the patient wishes to stay tonight to have more BM here -patient will likely be d/c tomorrow with relistor or movantik for opiod induced constipation as well as above therapies Case discussed with Dr. Soto
[2017-12-26] MEDS ORDERED: Sodium Chloride 0.9% 1,000 ML IV ONE (08:39)
[2017-12-26] MEDS: POLYETHYLENE GLYCOL 3350 17 GM/Dose PACKET PO SCH ×2 (10:04→18:30)
[2017-12-26] MEDS: Pantoprazole 40 mg EC Tab PO SCH (10:04)
[2017-12-26] MEDS: Sodium Chloride 0.9% 1,000 ML IV SCH ×2 (10:05→18:43)
[2017-12-26 11:39] LABS: BASO % 0.4 % (0.0-2.0); EOS # 0.1 K/uL (0.0-0.7); EOS % 1.2 % (0.0-4.0); HEMOGLOBIN 12.6 g/dL (11.0-16.0); LYMPH # 0.4 K/uL (1.0-4.3); LYMPH % 5.3 % (20.0-40.0); MEAN CELL VOLUME 86.8 fL (81.0-99.0); MEAN CORPUSCULAR HGB CONC 33.4 g/dL (33.0-37.0); MEAN PLATELET VOLUME 8.8 fL (7.2-11.7); MONO # 0.4 K/uL (0.0-0.8); MONO % 4.7 % (0.0-10.0); NEUT # 6.7 K/uL (1.8-7.0); NEUT % 88.4 % (50.0-75.0); PLATELET COUNT 169 K/uL (130-400); RBC 4.34 Mil/uL (3.80-5.20); RED CELL DISTRIBUTION WIDTH 17.5 % (11.5-14.5); WHITE BLOOD COUNT 7.6 K/uL (4.8-10.8)
[2017-12-26 12:27] LABS: ALB/GLOB RATIO 1.2 (1.0-2.1); ALBUMIN 3.4 g/dL (3.5-5.0); ALT/SGPT 51 U/L (9-52); AST/SGOT 71 U/L (14-36); BLOOD UREA NITROGEN 13 mg/dL (7-17); CALCIUM 8.8 mg/dl (8.6-10.4); GFR AFRICAN-AMERICAN > 60; GFR NON-AFRICAN AMERICAN > 60
[2017-12-26 12:56] LABS: BANDS 1 % (0-2); BASOPHIL 1 % (0-2); EOSINOPHIL 1 % (0-4); LYMPHOCYTE 6 % (20-40); MONOCYTE 1 % (0-10); NEUTROPHIL 90 % (50-75); TOTAL CELLS COUNTED 100
[2017-12-26 12:58] LABS: PLATELET ESTIMATE NORMAL (NORMAL)
[2017-12-26 12:59] LABS: ANISOCYTOSIS SLIGHT
[2017-12-26 13:09] LABS: OVALOCYTES SLIGHT
--- NOTE | 2017-12-26 13:48 | CP.PCM.PN ---
Subjective - Date & Time of Evaluation Date of Evaluation: 12/26/17 Time of Evaluation: 13:47 - Subjective Subjective: PGY2 Medicine Note for Dr. Hatch patient seen and examined at bedside this AM; states she doesnt have any appetite so we are trying marinol on her today; patient tolerated morning dose still with no appetite; denies all other symptoms; had large BM yesterday and was encouraged to take as much PO as possible. Objective - Vital Signs/Intake and Output Vital Signs (last 24 hours): Temp Pulse Resp BP Pulse Ox 97.9 F 87 20 109/64 92 L 12/26/17 08:36 12/26/17 08:36 12/26/17 08:36 12/26/17 08:36 12/26/17 08:36 Intake and Output: 12/26/17 12/26/17 06:59 18:59 Intake Total 240 Balance 240 - Medications Medications: Current Medications Dexamethasone (Decadron) 4 mg PO DAILY [facility] Last Admin: 12/26/17 10:04 Dose: 4 mg Docusate Sodium (Colace) 100 mg PO BID [facility] Last Admin: 12/26/17 10:04 Dose: 100 mg Dronabinol (Marinol) 5 mg PO BID [facility] Last Admin: 12/26/17 10:04 Dose: 5 mg Ergocalciferol (Drisdol 50,000 Intl Units Cap) 1 cap PO QWK [facility] Last Admin: 12/23/17 09:45 Dose: 1 cap Gabapentin (Neurontin) 100 mg PO DAILY [facility] Last Admin: 12/26/17 10:04 Dose: 100 mg Hydromorphone HCl (Dilaudid) 1 mg IVP Q8H [facility] Last Admin: 12/26/17 06:38 Dose: Not Given Sodium Chloride (Sodium Chloride 0.9%) 1,000 mls @ 100 mls/hr IV .Q10H [facility] Last Admin: 12/26/17 10:05 Dose: 100 mls/hr Lactulose (Enulose) 20 gm PO Q8H [facility] Last Admin: 12/26/17 10:04 Dose: 20 gm Lorazepam (Ativan) 0.5 mg PO HS [facility] Last Admin: 12/25/17 21:33 Dose: 0.5 mg Ondansetron HCl (Zofran Inj) 4 mg IVP Q6H [facility] Last Admin: 12/26/17 06:38 Dose: Not Given Pantoprazole Sodium (Protonix Ec Tab) 40 mg PO DAILY [facility] Last Admin: 12/26/17 10:04 Dose: 40 mg Polyethylene Glycol (Miralax) 17 gm PO BID [facility] Last Admin: 12/26/17 10:04 Dose: 17 gm Sennosides (Senokot Tab) 8.6 mg PO DAILY [facility] Last Admin: 12/26/17 10:04 Dose: 8.6 mg - Labs Labs: 12/26/17 11:28 12/26/17 11:28 Assessment and Plan - Assessment and Plan (Free Text) Assessment: Appears: Non-toxic, Chronically Ill - Head Exam Head Exam: ATRAUMATIC - Eye Exam Eye Exam: EOMI, Scleral icterus - ENT Exam ENT Exam: Mucous Membranes Moist - Neck Exam Neck Exam: Full ROM - Respiratory Exam Respiratory Exam: Clear to Ausculation Bilateral, NORMAL BREATHING PATTERN. absent: Rales, Rhonchi, Wheezes - Cardiovascular Exam Cardiovascular Exam: REGULAR RHYTHM, +S1, +S2 - GI/Abdominal Exam GI & Abdominal Exam: no tenderness, markedly reduced abdominal girth, soft - Extremities Exam Extremities Exam: Full ROM. absent: Calf Tenderness - Neurological Exam Neurological Exam: Alert, Awake, Oriented x3 - Psychiatric Exam Psychiatric exam: Normal Affect - Skin Skin Exam: Warm Assessment and Plan - Assessment and Plan (Free Text) Assessment: Generalized pain 2/2 to metastatic cancer Secondary to Stage IV breast cancer with metastases Hematology and Oncology Consult, Dr. Diane Pain management: * Dilaudid 0.5mg IV Q6H prn---> moderate pain * Dilaudid 1 mg IV Q6H prn----> Severe pain patient has siginficant opiod induced constipation; will benefit from either Relastor or Movantik on d/c to prevent further constipation Rapid Influenza test negative MRI of spine done on 12/18/17 showed metastasis to thoracic spine involving all segments. Small epidural tumor extension posterior to T12 segment which compresses the anterolateral borders of the thecal sac nearly reaching but not significantly compressing the spinal cord. Tumor extending laterally at T11- T12. Please see full report for details. Metastatic breast cancer;chronic Hematology and Oncology Consult, Dr. Diane ---> Help appreciated - Management as per recommendation - On chemotherapy Abdomen/Pelvis CT (12/13/17): Right breast prosthesis; multiple bilateral pulmonary nodules suspicious for metastases; hepatic lesions suspicious for metastases; MRi of spine shows diffuse mets to thoracic spine Chest X-ray (12/13/17):Patchy bilateral mid to lower lobe infiltrate changes with what may represent some concomitant atelectasis both lung bases Brain MRI 12/20/17: 1. 7 x 7 mm enhancing lesion with mild surrounding vasogenic edema in the left superior cerebellar hemisphere concerning for metastasis with the stated clinical history of breast cancer. 2. Few scattered 1-2 mm enhancing foci in the frontal and parietal white matter are nonspecific however superficial cortical metastasis is a consideration with the stated history of breast cancer. Short-term interval follow-up is advised. 3. Mild chronic microangiopathic changes and mild age-related global parenchymal volume loss. * Patient began Radiation Therapy over at [facility] on 12/21/17 * Dr. Rosemarie Holguin consulted - Radiation Oncology * She will need a total of 10 sessions * Patient and family were requesting for patient to stay at [facility] and be transferred back and forth daily as she is comfortable at [facility]. As of today, patient may be open to doing Radiation Therapy from home if transportation is set up in advance. Constipation;chronic opiod induced 8 cups of prune juice 2 doses of miralax 1 dose of lactulose 1 dose of mag citrate 2 enema Small bowel movement today Colitis CT abdomen/Pelvis (12/13/17): descending colon colitis, ileus Discharge from [facility] on short term PO Cipro and Flagyl x 3 more days. Will advance diet as tolerated Diabetes mellitus Elevated BS - likely secondary to initiation of Decadron Accuchecks will reevaluation for need of ISS based on accuchecks History of hypertension Stable Reevaluate for need of inpatient medication based on vital signs Q4H History of osteoporosis Continue home medication: * Vitamin D 50,000 units weekly Prophylactic measure GI: Protonix 40mg PO daily DVT: Lovenox 30mg SC daily Palliative care consult DISPO: -patient will likely be d/c tomorrow with relistor or movantik for opiod induced constipation as well as above therapies for pain management the patient is currently stable for d/c however is requesting to stay one more day so that she can be sure she is having BMs. Case discussed with Dr. Hatch; patient is stable for d/c as per dr hatch
[2017-12-27] MEDS: Sodium Chloride 0.9% 1,000 ML IV SCH ×3 (05:54→21:54)
[2017-12-27 07:16] LABS: BASO % 0.3 % (0.0-2.0); EOS # 0.1 K/uL (0.0-0.7); EOS % 1.6 % (0.0-4.0); HEMOGLOBIN 11.8 g/dL (11.0-16.0); LYMPH # 0.5 K/uL (1.0-4.3); LYMPH % 7.9 % (20.0-40.0); MEAN CELL VOLUME 86.5 fL (81.0-99.0); MEAN CORPUSCULAR HEMOGLOBIN 28.6 pg (27.0-31.0); MEAN PLATELET VOLUME 8.9 fL (7.2-11.7); MONO # 0.5 K/uL (0.0-0.8); MONO % 8.5 % (0.0-10.0); NEUT # 4.8 K/uL (1.8-7.0); NEUT % 81.7 % (50.0-75.0); PLATELET COUNT 144 K/uL (130-400); RBC 4.15 Mil/uL (3.80-5.20); RED CELL DISTRIBUTION WIDTH 17.4 % (11.5-14.5); WHITE BLOOD COUNT 5.9 K/uL (4.8-10.8)
[2017-12-27 08:03] LABS: ALB/GLOB RATIO 1.1 (1.0-2.1); ALBUMIN 3.2 g/dL (3.5-5.0); ALT/SGPT 60 U/L (9-52); AST/SGOT 61 U/L (14-36); BLOOD UREA NITROGEN 9 mg/dL (7-17); GFR AFRICAN-AMERICAN > 60; GFR NON-AFRICAN AMERICAN > 60
[2017-12-27] MEDS: Pantoprazole 40 mg EC Tab PO SCH (09:13)
[2017-12-27] MEDS: POLYETHYLENE GLYCOL 3350 17 GM/Dose PACKET PO SCH ×2 (09:13→18:07)
[2017-12-27 09:44] LABS: EOSINOPHIL 1 % (0-4); LYMPHOCYTE 9 % (20-40); MONOCYTE 6 % (0-10); NEUTROPHIL 84 % (50-75); PLATELET ESTIMATE NORMAL (NORMAL); TOTAL CELLS COUNTED 100
[2017-12-27 09:45] LABS: ANISOCYTOSIS SLIGHT; OVALOCYTES SLIGHT
[2017-12-27] MEDS ORDERED: HYDROmorphone 1 mg/ml ISec IVP SCH (14:30)
--- NOTE | 2017-12-27 16:46 | CP.PCM.PN ---
Subjective - Date & Time of Evaluation Date of Evaluation: 12/27/17 Time of Evaluation: 08:40 - Subjective Subjective: PGY1 Medicine Note for Dr. Hatch Patient seen and examined this morning at bedside. Patient is in good spirits stating that she feels much better after having a bowel movement this weekend. She expresses her wishes of staying in [facility] while she receives her radiation therapy at [place]. She states she is tolerating her diet and currently has no complaints. Denies fevers, chills, nausea, vomiting, chest pain , abdominal pain, headache or shortness of breath. Objective - Vital Signs/Intake and Output Vital Signs (last 24 hours): Temp Pulse Resp BP Pulse Ox 98.4 F 83 20 112/65 95 12/27/17 16:00 12/27/17 16:00 12/27/17 16:00 12/27/17 16:00 12/27/17 16:00 Intake and Output: 12/27/17 12/27/17 06:59 18:59 Intake Total 1000 1380 Balance 1000 1380 - Medications Medications: Current Medications Dexamethasone (Decadron) 4 mg PO DAILY [facility] Last Admin: 12/27/17 09:12 Dose: 4 mg Docusate Sodium (Colace) 100 mg PO BID [facility] Last Admin: 12/27/17 09:12 Dose: 100 mg Dronabinol (Marinol) 5 mg PO BID [facility] Last Admin: 12/27/17 09:12 Dose: 5 mg Ergocalciferol (Drisdol 50,000 Intl Units Cap) 1 cap PO QWK [facility] Last Admin: 12/23/17 09:45 Dose: 1 cap Gabapentin (Neurontin) 100 mg PO DAILY [facility] Last Admin: 12/27/17 09:13 Dose: 100 mg Hydromorphone HCl (Dilaudid) 1 mg IVP Q8H PRN PRN Reason: Pain, moderate (4-7) Sodium Chloride (Sodium Chloride 0.9%) 1,000 mls @ 100 mls/hr IV .Q10H [facility] Last Admin: 12/27/17 09:20 Dose: 100 mls/hr Lactulose (Enulose) 20 gm PO Q8H [facility] Last Admin: 12/27/17 09:17 Dose: Not Given Lorazepam (Ativan) 0.5 mg PO HS [facility] Last Admin: 12/26/17 22:05 Dose: 0.5 mg Ondansetron HCl (Zofran Inj) 4 mg IVP Q6H [facility] Last Admin: 12/27/17 12:55 Dose: 4 mg Pantoprazole Sodium (Protonix Ec Tab) 40 mg PO DAILY [facility] Last Admin: 12/27/17 09:13 Dose: 40 mg Polyethylene Glycol (Miralax) 17 gm PO BID [facility] Last Admin: 12/27/17 09:13 Dose: 17 gm Sennosides (Senokot Tab) 8.6 mg PO DAILY [facility] Last Admin: 12/27/17 09:13 Dose: 8.6 mg - Labs Labs: 12/27/17 07:06 12/27/17 07:06 - Constitutional Appears: Non-toxic, No Acute Distress - Head Exam Head Exam: ATRAUMATIC, NORMOCEPHALIC - Eye Exam Eye Exam: EOMI, Normal appearance - ENT Exam ENT Exam: Mucous Membranes Moist - Respiratory Exam Respiratory Exam: Clear to Ausculation Bilateral, NORMAL BREATHING PATTERN. absent: Accessory Muscle Use, Rales, Rhonchi, Wheezes, Respiratory Distress - Cardiovascular Exam Cardiovascular Exam: REGULAR RHYTHM, +S1, +S2 - GI/Abdominal Exam GI & Abdominal Exam: Soft, Normal Bowel Sounds. absent: Distended, Firm, Guarding, Rigid, Tenderness - Extremities Exam Extremities Exam: Normal Inspection. absent: Calf Tenderness, Pedal Edema - Neurological Exam Neurological Exam: Alert, Awake, Oriented x3 - Psychiatric Exam Psychiatric exam: Normal Affect, Normal Mood - Skin Skin Exam: Dry, Warm Assessment and Plan - Assessment and Plan (Free Text) Plan: Generalized pain 2/2 to metastatic cancer Secondary to Stage IV breast cancer with metastases Hematology and Oncology Consult, Dr. Diane Pain management: * Dilaudid 0.5mg IV Q8H prn---> moderate pain * Dilaudid 1 mg IV Q8H prn----> Severe pain patient has siginficant opiod induced constipation; will benefit from either Relastor or Movantik on d/c to prevent further constipation Rapid Influenza test negative MRI of spine done on 12/18/17 showed metastasis to thoracic spine involving all segments. Small epidural tumor extension posterior to T12 segment which compresses the anterolateral borders of the thecal sac nearly reaching but not significantly compressing the spinal cord. Tumor extending laterally at T11- T12. Please see full report for details. Metastatic breast cancer;chronic Hematology and Oncology Consult, Dr. Diane ---> Help appreciated - Management as per recommendation - On chemotherapy Abdomen/Pelvis CT (12/13/17): Right breast prosthesis; multiple bilateral pulmonary nodules suspicious for metastases; hepatic lesions suspicious for metastases; MRI of spine shows diffuse mets to thoracic spine Chest X-ray (12/13/17):Patchy bilateral mid to lower lobe infiltrate changes with what may represent some concomitant atelectasis both lung bases Brain MRI 12/20/17: 1. 7 x 7 mm enhancing lesion with mild surrounding vasogenic edema in the left superior cerebellar hemisphere concerning for metastasis with the stated clinical history of breast cancer. 2. Few scattered 1-2 mm enhancing foci in the frontal and parietal white matter are nonspecific however superficial cortical metastasis is a consideration with the stated history of breast cancer. Short-term interval follow-up is advised. 3. Mild chronic microangiopathic changes and mild age-related global parenchymal volume loss. * Patient began Radiation Therapy over at [facility] on 12/21/17 * Dr. Rosemarie Holguin consulted - Radiation Oncology * She will need a total of 10 sessions - last session scheduled for 01/03/18. * Patient and family were requesting for patient to stay at [facility] [place] and be transferred back and forth daily as she is comfortable at [facility] [place]. Patient is refusing to go to rehab center. Constipation;chronic opioid induced Colace 100mg PO BID Lactulose 20gm PO q8h Miralax 17gm PO BID Senokot 8.6mg PO daily continue to monitor Colitis CT abdomen/Pelvis (12/13/17): descending colon colitis, ileus Will advance diet as tolerated Diabetes mellitus Elevated BS - likely secondary to initiation of Decadron Accuchecks will reevaluation for need of ISS based on accuchecks History of hypertension Stable Reevaluate for need of inpatient medication based on vital signs Q4H History of osteoporosis Continue home medication: * Vitamin D 50,000 units weekly Prophylactic measure GI: Protonix 40mg PO daily DVT: Lovenox 30mg SC daily Palliative care consult - POLST document DISPO: Patient will stay in [facility] while she receives her Radiation Therapy at [facility]. Patient lives alone at home and has no transportation to get to her treatments. She is refusing YANIRA. Patient's son is at bedside confirming his mother's wishes. Case discussed with Dr. Hatch; patient is stable for d/c as per dr hatch
[2017-12-28] MEDS: Sodium Chloride 0.9% 1,000 ML IV SCH ×3 (00:45→20:50)
[2017-12-28] MEDS: HYDROmorphone 1 mg/ml ISec IVP PRN ×2 (06:11→18:06)
[2017-12-28 07:29] LABS: BASO % 0.2 % (0.0-2.0); EOS # 0.1 K/uL (0.0-0.7); EOS % 1.6 % (0.0-4.0); HEMOGLOBIN 11.8 g/dL (11.0-16.0); LYMPH # 0.5 K/uL (1.0-4.3); LYMPH % 8.3 % (20.0-40.0); MEAN CORPUSCULAR HEMOGLOBIN 28.6 pg (27.0-31.0); MEAN CORPUSCULAR HGB CONC 32.9 g/dL (33.0-37.0); MEAN PLATELET VOLUME 8.8 fL (7.2-11.7); MONO # 0.5 K/uL (0.0-0.8); MONO % 7.7 % (0.0-10.0); NEUT # 4.8 K/uL (1.8-7.0); NEUT % 82.2 % (50.0-75.0); PLATELET COUNT 149 K/uL (130-400); RBC 4.12 Mil/uL (3.80-5.20); RED CELL DISTRIBUTION WIDTH 17.7 % (11.5-14.5); WHITE BLOOD COUNT 5.9 K/uL (4.8-10.8)
[2017-12-28 07:40] LABS: ALB/GLOB RATIO 1.1 (1.0-2.1); ALBUMIN 3.2 g/dL (3.5-5.0); ALT/SGPT 74 U/L (9-52); AST/SGOT 85 U/L (14-36); BLOOD UREA NITROGEN 11 mg/dL (7-17); GFR AFRICAN-AMERICAN > 60; GFR NON-AFRICAN AMERICAN > 60
[2017-12-28 10:00] LABS: ANISOCYTOSIS SLIGHT; EOSINOPHIL 1 % (0-4); LYMPHOCYTE 4 % (20-40); MONOCYTE 8 % (0-10); NEUTROPHIL 87 % (50-75); PLATELET ESTIMATE NORMAL (NORMAL); TOTAL CELLS COUNTED 100
[2017-12-28 10:01] LABS: OVALOCYTES MODERATE
[2017-12-28] MEDS: POLYETHYLENE GLYCOL 3350 17 GM/Dose PACKET PO SCH ×2 (10:14→17:52)
[2017-12-28] MEDS: Pantoprazole 40 mg EC Tab PO SCH (10:15)
--- NOTE | 2017-12-28 11:33 | CP.PCM.PN ---
Subjective - Date & Time of Evaluation Date of Evaluation: 12/28/17 Time of Evaluation: 09:00 - Subjective Subjective: Denies pain, denies dizzines/ headache. Objective - Vital Signs/Intake and Output Vital Signs (last 24 hours): Temp Pulse Resp BP Pulse Ox 98.7 F 81 20 106/56 L 94 L 12/28/17 08:07 12/28/17 08:07 12/28/17 08:07 12/28/17 08:07 12/28/17 08:07 Intake and Output: 12/28/17 12/28/17 06:59 18:59 Intake Total 2200 Balance 2200 - Medications Medications: Current Medications Dexamethasone (Decadron) 4 mg PO DAILY [facility] Last Admin: 12/28/17 10:15 Dose: 4 mg Docusate Sodium (Colace) 100 mg PO BID [facility] Last Admin: 12/28/17 10:15 Dose: 100 mg Dronabinol (Marinol) 5 mg PO BID [facility] Last Admin: 12/28/17 10:15 Dose: 5 mg Ergocalciferol (Drisdol 50,000 Intl Units Cap) 1 cap PO QWK [facility] Last Admin: 12/23/17 09:45 Dose: 1 cap Gabapentin (Neurontin) 100 mg PO DAILY [facility] Last Admin: 12/28/17 10:15 Dose: 100 mg Hydromorphone HCl (Dilaudid) 1 mg IVP Q8H PRN PRN Reason: Pain, moderate (4-7) Last Admin: 12/28/17 06:11 Dose: 1 mg Sodium Chloride (Sodium Chloride 0.9%) 1,000 mls @ 100 mls/hr IV .Q10H [facility] Last Admin: 12/28/17 00:45 Dose: Not Given Lactulose (Enulose) 20 gm PO Q8H [facility] Last Admin: 12/28/17 10:20 Dose: Not Given Ondansetron HCl (Zofran Inj) 4 mg IVP Q6H [facility] Last Admin: 12/28/17 06:11 Dose: 4 mg Pantoprazole Sodium (Protonix Ec Tab) 40 mg PO DAILY [facility] Last Admin: 12/28/17 10:15 Dose: 40 mg Polyethylene Glycol (Miralax) 17 gm PO BID [facility] Last Admin: 12/28/17 10:14 Dose: 17 gm Sennosides (Senokot Tab) 8.6 mg PO DAILY [facility] Last Admin: 12/28/17 10:15 Dose: 8.6 mg - Labs Labs: 12/28/17 07:06 12/28/17 07:06 - Constitutional Appears: No Acute Distress - Head Exam Head Exam: ATRAUMATIC, NORMAL INSPECTION, NORMOCEPHALIC - Eye Exam Eye Exam: EOMI, Normal appearance, PERRL Pupil Exam: NORMAL ACCOMODATION, PERRL - ENT Exam ENT Exam: Mucous Membranes Dry - Neck Exam Neck Exam: Normal Inspection - Respiratory Exam Respiratory Exam: Decreased Breath Sounds, NORMAL BREATHING PATTERN - Cardiovascular Exam Cardiovascular Exam: REGULAR RHYTHM - GI/Abdominal Exam GI & Abdominal Exam: Soft, Normal Bowel Sounds - Rectal Exam Rectal Exam: Deferred - Extremities Exam Extremities Exam: Full ROM, Normal Capillary Refill, Normal Inspection - Back Exam Back Exam: NORMAL INSPECTION - Neurological Exam Neurological Exam: Alert, Normal Gait, Oriented x3 Neuro motor strength exam: Left Upper Extremity: 2/1, Right Upper Extremity: 2/1 , Left Lower Extremity: 2/1, Right Lower Extremity: 2/1 - Psychiatric Exam Psychiatric exam: Normal Affect, Normal Mood - Skin Skin Exam: Normal Color, Warm Assessment and Plan - Assessment and Plan (Free Text) Assessment: palliative care progress note. Patient seen and examined in bed alert, oriented X 3, in no acute distress. Reports tolerating radiation well, denies nausea, lack of appetite, dizziness, headache. Edentulous, does not wear dentures due to discomfort they are causing her.Breath sounds diminished, no cough, normal breathing pattern. Abdomen soft, active bowel sounds, denies constipation. Denies pain. Ambulatory. Goals of care discussed. patient is fully aware of her diagnosis and cancer spreading to the brain. patient reports fighting cancer for 7 years and wants to " fight it till the end". I supported her attiude. I suggested that many people with her diagnosis have their wishes for the end of life care documented and asked what hers were. Patient stated willinigness to fight cancer. If she loses decision making capacity she would want her son John to take over decisions making. POLST completed. Patient choose FULL CODE. 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 * Plan * Continue radiation * Dental consult as an outpatient for dentures fitting * Full Code Thank you for consulting Palliative care.
--- NOTE | 2017-12-28 12:19 | CP.PCM.PN ---
Subjective - Date & Time of Evaluation Date of Evaluation: 12/28/17 Time of Evaluation: 12:16 - Subjective Subjective: PGY1 Medicine Note for Dr. Soto Patient seen and examined this morning at bedside. Patient went for her radiation therapy this morning and is in good spirits. She states she is doing well and has no complaints at this time. She had her meeting with palliative care this morning and completed her POLST document. Patient wants to be a full code. "I will fight to the end." Denies fevers, chills, nausea, vomiting, chest pain, abdominal pain, headache or shortness of breath. Objective - Vital Signs/Intake and Output Vital Signs (last 24 hours): Temp Pulse Resp BP Pulse Ox 98.7 F 81 20 106/56 L 94 L 12/28/17 08:07 12/28/17 08:07 12/28/17 08:07 12/28/17 08:07 12/28/17 08:07 Intake and Output: 12/28/17 12/28/17 06:59 18:59 Intake Total 2200 Balance 2200 - Medications Medications: Current Medications Dexamethasone (Decadron) 4 mg PO DAILY [facility] Last Admin: 12/28/17 10:15 Dose: 4 mg Docusate Sodium (Colace) 100 mg PO BID [facility] Last Admin: 12/28/17 10:15 Dose: 100 mg Dronabinol (Marinol) 5 mg PO BID [facility] Last Admin: 12/28/17 10:15 Dose: 5 mg Ergocalciferol (Drisdol 50,000 Intl Units Cap) 1 cap PO QWK [facility] Last Admin: 12/23/17 09:45 Dose: 1 cap Gabapentin (Neurontin) 100 mg PO DAILY [facility] Last Admin: 12/28/17 10:15 Dose: 100 mg Hydromorphone HCl (Dilaudid) 1 mg IVP Q8H PRN PRN Reason: Pain, moderate (4-7) Last Admin: 12/28/17 06:11 Dose: 1 mg Sodium Chloride (Sodium Chloride 0.9%) 1,000 mls @ 100 mls/hr IV .Q10H [facility] Last Admin: 12/28/17 11:43 Dose: 100 mls/hr Lactulose (Enulose) 20 gm PO Q8H [facility] Last Admin: 12/28/17 10:20 Dose: Not Given Ondansetron HCl (Zofran Inj) 4 mg IVP Q6H [facility] Last Admin: 12/28/17 12:03 Dose: 4 mg Pantoprazole Sodium (Protonix Ec Tab) 40 mg PO DAILY [facility] Last Admin: 12/28/17 10:15 Dose: 40 mg Polyethylene Glycol (Miralax) 17 gm PO BID [facility] Last Admin: 12/28/17 10:14 Dose: 17 gm Sennosides (Senokot Tab) 8.6 mg PO DAILY [facility] Last Admin: 12/28/17 10:15 Dose: 8.6 mg - Labs Labs: 12/28/17 07:06 12/28/17 07:06 - Constitutional Appears: Non-toxic, No Acute Distress - Head Exam Head Exam: ATRAUMATIC, NORMOCEPHALIC - Eye Exam Eye Exam: EOMI, Normal appearance, PERRL - ENT Exam ENT Exam: Mucous Membranes Moist - Respiratory Exam Respiratory Exam: Clear to Ausculation Bilateral, NORMAL BREATHING PATTERN. absent: Accessory Muscle Use, Rales, Rhonchi, Wheezes, Respiratory Distress - Cardiovascular Exam Cardiovascular Exam: REGULAR RHYTHM, +S1, +S2 - GI/Abdominal Exam GI & Abdominal Exam: Soft, Normal Bowel Sounds. absent: Distended, Firm, Guarding, Rigid, Tenderness - Extremities Exam Extremities Exam: absent: Calf Tenderness, Pedal Edema - Neurological Exam Neurological Exam: Alert, Awake, Oriented x3 - Psychiatric Exam Psychiatric exam: Normal Affect, Normal Mood - Skin Skin Exam: Dry, Warm Assessment and Plan - Assessment and Plan (Free Text) Plan: Generalized pain 2/2 to metastatic cancer Secondary to Stage IV breast cancer with metastases Hematology and Oncology Consult, Dr. Diane Pain management: * Dilaudid 0.5mg IV Q8H prn---> moderate pain * Dilaudid 1 mg IV Q8H prn----> Severe pain patient has siginficant opiod induced constipation; will benefit from either Relastor or Movantik on d/c to prevent further constipation Rapid Influenza test negative MRI of spine done on 12/18/17 showed metastasis to thoracic spine involving all segments. Small epidural tumor extension posterior to T12 segment which compresses the anterolateral borders of the thecal sac nearly reaching but not significantly compressing the spinal cord. Tumor extending laterally at T11- T12. Please see full report for details. Metastatic breast cancer;chronic Hematology and Oncology Consult, Dr. Diane ---> Help appreciated - Management as per recommendation - On chemotherapy Abdomen/Pelvis CT (12/13/17): Right breast prosthesis; multiple bilateral pulmonary nodules suspicious for metastases; hepatic lesions suspicious for metastases; MRI of spine shows diffuse mets to thoracic spine Chest X-ray (12/13/17):Patchy bilateral mid to lower lobe infiltrate changes with what may represent some concomitant atelectasis both lung bases Brain MRI 12/20/17: 1. 7 x 7 mm enhancing lesion with mild surrounding vasogenic edema in the left superior cerebellar hemisphere concerning for metastasis with the stated clinical history of breast cancer. 2. Few scattered 1-2 mm enhancing foci in the frontal and parietal white matter are nonspecific however superficial cortical metastasis is a consideration with the stated history of breast cancer. Short-term interval follow-up is advised. 3. Mild chronic microangiopathic changes and mild age-related global parenchymal volume loss. * Patient began Radiation Therapy over at [facility] on 12/21/17 * Dr. Rosemarie Holguin consulted - Radiation Oncology * She will need a total of 10 sessions - last session scheduled for 01/03/18. * Patient and family were requesting for patient to stay at [facility] and be transferred back and forth daily as she is comfortable at [facility]. Patient is refusing to go to rehab center. Constipation;chronic opioid induced Colace 100mg PO BID Lactulose 20gm PO q8h Miralax 17gm PO BID Senokot 8.6mg PO daily continue to monitor Colitis CT abdomen/Pelvis (12/13/17): descending colon colitis, ileus Will advance diet as tolerated Diabetes mellitus Elevated BS - likely secondary to initiation of Decadron Accuchecks will reevaluation for need of ISS based on accuchecks History of hypertension Stable Reevaluate for need of inpatient medication based on vital signs Q4H History of osteoporosis Continue home medication: * Vitamin D 50,000 units weekly Prophylactic measure GI: Protonix 40mg PO daily DVT: Lovenox 30mg SC daily Palliative care consult - POLST document complete * Patient wants to be a full code. DISPO: Patient will stay in [facility] while she receives her Radiation Therapy at [facility]. Patient lives alone at home and has no transportation to get to her treatments. She is refusing YANIRA. Patient's son is at bedside confirming his mother's wishes. Case discussed with Dr. Charles Perez Tommy PGY1
[2017-12-28] MEDS: (Novolin R) Insulin Human Regular 100 units/ml vial SC SCH (21:44)
[2017-12-28] MEDS ORDERED: (Novolin R) Insulin Human Regular 100 units/ml vial SC SCH (22:00)
[2017-12-29] MEDS: HYDROmorphone 1 mg/ml ISec IVP PRN ×2 (05:45→14:58)
[2017-12-29] MEDS: Sodium Chloride 0.9% 1,000 ML IV SCH (06:59)
[2017-12-29 07:13] LABS: BASO % 0.3 % (0.0-2.0); EOS # 0.1 K/uL (0.0-0.7); EOS % 1.5 % (0.0-4.0); HEMOGLOBIN 11.8 g/dL (11.0-16.0); LYMPH # 0.4 K/uL (1.0-4.3); LYMPH % 7.8 % (20.0-40.0); MEAN CELL VOLUME 86.6 fL (81.0-99.0); MEAN CORPUSCULAR HEMOGLOBIN 28.9 pg (27.0-31.0); MEAN CORPUSCULAR HGB CONC 33.3 g/dL (33.0-37.0); MONO # 0.4 K/uL (0.0-0.8); MONO % 6.9 % (0.0-10.0); NEUT # 4.5 K/uL (1.8-7.0); NEUT % 83.5 % (50.0-75.0); PLATELET COUNT 147 K/uL (130-400); RBC 4.08 Mil/uL (3.80-5.20); RED CELL DISTRIBUTION WIDTH 17.3 % (11.5-14.5); WHITE BLOOD COUNT 5.4 K/uL (4.8-10.8)
[2017-12-29 07:36] LABS: ALB/GLOB RATIO 1.2 (1.0-2.1); ALBUMIN 3.2 g/dL (3.5-5.0); ALT/SGPT 145 U/L (9-52); AST/SGOT 175 U/L (14-36); BLOOD UREA NITROGEN 9 mg/dL (7-17); GFR AFRICAN-AMERICAN > 60; GFR NON-AFRICAN AMERICAN > 60
[2017-12-29] MEDS: (Novolin R) Insulin Human Regular 100 units/ml vial SC SCH ×4 (08:00→22:09)
[2017-12-29 08:18] LABS: ANISOCYTOSIS SLIGHT; EOSINOPHIL 1 % (0-4); HYPOCHROMIC SLIGHT; LYMPHOCYTE 3 % (20-40); MONOCYTE 3 % (0-10); NEUTROPHIL 93 % (50-75); OVALOCYTES SLIGHT; PLATELET ESTIMATE NORMAL (NORMAL); TOTAL CELLS COUNTED 100
[2017-12-29] MEDS: Pantoprazole 40 mg EC Tab PO SCH (09:54)
[2017-12-29] MEDS: POLYETHYLENE GLYCOL 3350 17 GM/Dose PACKET PO SCH ×3 (09:55→17:37)
--- NOTE | 2017-12-29 11:58 | CP.PCM.PN ---
Subjective - Date & Time of Evaluation Date of Evaluation: 12/29/17 Time of Evaluation: 08:00 - Subjective Subjective: PGY1 Medicine Note for Dr. Soto Patient seen and examined this morning at bedside. Patient went for her radiation therapy this morning. Patient states she is doing well and has no complaints at this time. She is tolerating her diet and currently has no pain. Patient states she had a small bowel movement last night. Denies fevers, chills , nausea, vomiting, chest pain, abdominal pain, headache or shortness of breath. Objective - Vital Signs/Intake and Output Vital Signs (last 24 hours): Temp Pulse Resp BP Pulse Ox 98.4 F 89 20 167/78 H 92 L 12/29/17 09:05 12/29/17 09:05 12/29/17 09:05 12/29/17 09:05 12/29/17 09:05 Intake and Output: 12/29/17 12/29/17 06:59 18:59 Intake Total 950 Balance 950 - Medications Medications: Current Medications Dexamethasone (Decadron) 4 mg PO DAILY [facility] Last Admin: 12/29/17 09:54 Dose: 4 mg Docusate Sodium (Colace) 100 mg PO BID [facility] Last Admin: 12/29/17 09:54 Dose: 100 mg Dronabinol (Marinol) 5 mg PO BID [facility] Last Admin: 12/29/17 09:54 Dose: 5 mg Ergocalciferol (Drisdol 50,000 Intl Units Cap) 1 cap PO QWK [facility] Last Admin: 12/23/17 09:45 Dose: 1 cap Gabapentin (Neurontin) 100 mg PO DAILY [facility] Last Admin: 12/29/17 09:54 Dose: 100 mg Hydromorphone HCl (Dilaudid) 1 mg IVP Q8H PRN PRN Reason: Pain, moderate (4-7) Last Admin: 12/29/17 05:45 Dose: 1 mg Insulin Human Regular (Novolin R) 0 unit SC ACHS [facility] PRN Reason: Protocol Last Admin: 12/29/17 08:00 Dose: Not Given Lactulose (Enulose) 20 gm PO Q8H [facility] Last Admin: 12/29/17 09:55 Dose: Not Given Ondansetron HCl (Zofran Inj) 4 mg IVP Q6H [facility] Last Admin: 12/29/17 05:45 Dose: 4 mg Pantoprazole Sodium (Protonix Ec Tab) 40 mg PO DAILY [facility] Last Admin: 12/29/17 09:54 Dose: 40 mg Polyethylene Glycol (Miralax) 17 gm PO BID [facility] Last Admin: 12/29/17 10:01 Dose: Not Given Sennosides (Senokot Tab) 8.6 mg PO DAILY [facility] Last Admin: 12/29/17 09:54 Dose: 8.6 mg - Labs Labs: 12/29/17 06:50 12/29/17 06:50 - Constitutional Appears: Non-toxic, No Acute Distress - Head Exam Head Exam: ATRAUMATIC, NORMOCEPHALIC - Eye Exam Eye Exam: EOMI, PERRL - ENT Exam ENT Exam: Mucous Membranes Moist - Respiratory Exam Respiratory Exam: Clear to Ausculation Bilateral, NORMAL BREATHING PATTERN. absent: Accessory Muscle Use, Rales, Rhonchi, Wheezes, Respiratory Distress - Cardiovascular Exam Cardiovascular Exam: REGULAR RHYTHM, +S1, +S2 - GI/Abdominal Exam GI & Abdominal Exam: Soft, Normal Bowel Sounds. absent: Distended, Firm, Guarding, Rigid, Tenderness - Extremities Exam Extremities Exam: absent: Calf Tenderness, Pedal Edema - Neurological Exam Neurological Exam: Alert, Awake, Oriented x3 - Psychiatric Exam Psychiatric exam: Normal Affect, Normal Mood - Skin Skin Exam: Dry, Warm Assessment and Plan - Assessment and Plan (Free Text) Plan: DISPO: Patient will stay in [facility] while she receives her Radiation Therapy at [facility]. Patient lives alone at home and has no transportation to get to her treatments. She is refusing YANIRA. Patient's last day of radiation therapy is scheduled for 01/03/18. Patient to be discharged home after last treatment. Generalized pain 2/2 to metastatic cancer Secondary to Stage IV breast cancer with metastases Hematology and Oncology Consult, Dr. Diane Pain management: * Dilaudid 0.5mg IV Q8H prn---> moderate pain * Dilaudid 1 mg IV Q8H prn----> Severe pain patient has siginficant opiod induced constipation; will benefit from either Relastor or Movantik on d/c to prevent further constipation Rapid Influenza test negative MRI of spine done on 12/18/17 showed metastasis to thoracic spine involving all segments. Small epidural tumor extension posterior to T12 segment which compresses the anterolateral borders of the thecal sac nearly reaching but not significantly compressing the spinal cord. Tumor extending laterally at T11- T12. Please see full report for details. Metastatic breast cancer;chronic Hematology and Oncology Consult, Dr. Diane ---> Help appreciated - Management as per recommendation - On chemotherapy Abdomen/Pelvis CT (12/13/17): Right breast prosthesis; multiple bilateral pulmonary nodules suspicious for metastases; hepatic lesions suspicious for metastases; MRI of spine shows diffuse mets to thoracic spine Chest X-ray (12/13/17):Patchy bilateral mid to lower lobe infiltrate changes with what may represent some concomitant atelectasis both lung bases Brain MRI 12/20/17: 1. 7 x 7 mm enhancing lesion with mild surrounding vasogenic edema in the left superior cerebellar hemisphere concerning for metastasis with the stated clinical history of breast cancer. 2. Few scattered 1-2 mm enhancing foci in the frontal and parietal white matter are nonspecific however superficial cortical metastasis is a consideration with the stated history of breast cancer. Short-term interval follow-up is advised. 3. Mild chronic microangiopathic changes and mild age-related global parenchymal volume loss. * Patient began Radiation Therapy over at [facility] on 12/21/17 * Dr. Rosemarie Holguin consulted - Radiation Oncology * She will need a total of 10 sessions - last session scheduled for 01/03/18. * Patient and family were requesting for patient to stay at [facility] and be transferred back and forth daily as she is comfortable at [facility]. Patient is refusing to go to rehab center. Constipation;chronic opioid induced Colace 100mg PO BID Lactulose 20gm PO q8h Miralax 17gm PO BID Senokot 8.6mg PO daily continue to monitor Colitis CT abdomen/Pelvis (12/13/17): descending colon colitis, ileus Will advance diet as tolerated Diabetes mellitus Elevated BS - likely secondary to initiation of Decadron Accuchecks will reevaluation for need of ISS based on accuchecks History of hypertension Stable Reevaluate for need of inpatient medication based on vital signs Q4H History of osteoporosis Continue home medication: * Vitamin D 50,000 units weekly Prophylactic measure GI: Protonix 40mg PO daily DVT: Lovenox 30mg SC daily Palliative care consult - POLST document complete * Patient wants to be a full code. Case discussed with Dr. Charles Perez Tommy PGY1
--- NOTE | 2017-12-29 20:24 | CP.PCM.PN ---
Subjective - Date & Time of Evaluation Date of Evaluation: 12/29/17 Time of Evaluation: 20:21 - Subjective Subjective: The patient is clinically unchanged, pain under control, poor appetite, coughing when swallowing. Bowel movements daily. Awake ,alert. Objective - Vital Signs/Intake and Output Vital Signs (last 24 hours): Temp Pulse Resp BP Pulse Ox 98.5 F 71 20 116/64 95 12/29/17 15:10 12/29/17 15:10 12/29/17 15:10 12/29/17 15:10 12/29/17 15:10 Intake and Output: 12/29/17 12/30/17 18:59 06:59 Intake Total 2030 Balance 2030 - Medications Medications: Current Medications Dexamethasone (Decadron) 4 mg PO DAILY [facility] Last Admin: 12/29/17 09:54 Dose: 4 mg Docusate Sodium (Colace) 100 mg PO BID [facility] Last Admin: 12/29/17 17:36 Dose: 100 mg Dronabinol (Marinol) 5 mg PO BID [facility] Last Admin: 12/29/17 17:35 Dose: 5 mg Ergocalciferol (Drisdol 50,000 Intl Units Cap) 1 cap PO QWK [facility] Last Admin: 12/23/17 09:45 Dose: 1 cap Gabapentin (Neurontin) 100 mg PO DAILY [facility] Last Admin: 12/29/17 09:54 Dose: 100 mg Hydromorphone HCl (Dilaudid) 1 mg IVP Q8H PRN PRN Reason: Pain, moderate (4-7) Last Admin: 12/29/17 14:58 Dose: 1 mg Insulin Human Regular (Novolin R) [address] [facility] PRN Reason: Protocol Last Admin: 12/29/17 16:30 Dose: 4 unit Lactulose (Enulose) 20 gm PO Q8H [facility] Last Admin: 12/29/17 17:36 Dose: 20 gm Ondansetron HCl (Zofran Inj) 4 mg IVP Q6H [facility] Last Admin: 12/29/17 12:58 Dose: 4 mg Pantoprazole Sodium (Protonix Ec Tab) 40 mg PO DAILY [facility] Last Admin: 12/29/17 09:54 Dose: 40 mg Polyethylene Glycol (Miralax) 17 gm PO BID [facility] Last Admin: 12/29/17 17:37 Dose: 17 gm Sennosides (Senokot Tab) 8.6 mg PO DAILY [facility] Last Admin: 12/29/17 09:54 Dose: 8.6 mg - Labs Labs: 12/29/17 06:50 12/29/17 06:50 Assessment and Plan (1) Metastatic breast carcinoma Assessment & Plan: Advanced metastatic breast cancer, getting palliative WBRT. Discharge home after Rt completed. Get speech and swallowing evaluation Status: Acute
[2017-12-30] MEDS: (Novolin R) Insulin Human Regular 100 units/ml vial SC SCH ×4 (00:05→21:20)
[2017-12-30] MEDS: HYDROmorphone 1 mg/ml ISec IVP PRN ×3 (05:04→21:51)
[2017-12-30 07:09] LABS: BASO % 0.4 % (0.0-2.0); EOS # 0.1 K/uL (0.0-0.7); HEMOGLOBIN 11.6 g/dL (11.0-16.0); LYMPH # 0.4 K/uL (1.0-4.3); LYMPH % 7.9 % (20.0-40.0); MEAN CELL VOLUME 86.6 fL (81.0-99.0); MEAN CORPUSCULAR HEMOGLOBIN 28.9 pg (27.0-31.0); MEAN CORPUSCULAR HGB CONC 33.4 g/dL (33.0-37.0); MEAN PLATELET VOLUME 9.3 fL (7.2-11.7); MONO # 0.4 K/uL (0.0-0.8); MONO % 7.3 % (0.0-10.0); NEUT # 4.2 K/uL (1.8-7.0); NEUT % 83.4 % (50.0-75.0); PLATELET COUNT 136 K/uL (130-400); RBC 4.02 Mil/uL (3.80-5.20); RED CELL DISTRIBUTION WIDTH 17.8 % (11.5-14.5); WHITE BLOOD COUNT 5.1 K/uL (4.8-10.8)
[2017-12-30 07:22] LABS: ALB/GLOB RATIO 1.2 (1.0-2.1); ALBUMIN 3.2 g/dL (3.5-5.0); ALT/SGPT 169 U/L (9-52); AST/SGOT 148 U/L (14-36); BLOOD UREA NITROGEN 9 mg/dL (7-17); GFR AFRICAN-AMERICAN > 60; GFR NON-AFRICAN AMERICAN > 60
[2017-12-30 08:28] LABS: EOSINOPHIL 1 % (0-4); LYMPHOCYTE 8 % (20-40); MONOCYTE 7 % (0-10); NEUTROPHIL 84 % (50-75); PLATELET ESTIMATE NORMAL (NORMAL); TOTAL CELLS COUNTED 100
[2017-12-30 08:29] LABS: ANISOCYTOSIS SLIGHT; OVALOCYTES SLIGHT
[2017-12-30] MEDS: Pantoprazole 40 mg EC Tab PO SCH (10:32)
[2017-12-30] MEDS: POLYETHYLENE GLYCOL 3350 17 GM/Dose PACKET PO SCH ×2 (10:32→17:45)
[2017-12-30] MEDS: Ergocalciferol 50,000 Intl Units Cap PO SCH (10:32)
--- NOTE | 2017-12-30 13:02 | CP.PCM.PN ---
Subjective - Date & Time of Evaluation Date of Evaluation: 12/30/17 Time of Evaluation: 09:00 - Subjective Subjective: PGY1 Medicine Note for Dr. Soto Patient seen and examined this morning at bedside. She is still receiving daily whole brain radiation therapy treatments at [facility]. No complaints at this time. Objective - Vital Signs/Intake and Output Vital Signs (last 24 hours): Temp Pulse Resp BP Pulse Ox 98.4 F 83 20 126/73 97 12/30/17 00:00 12/30/17 00:00 12/30/17 00:00 12/30/17 00:00 12/30/17 00:00 Intake and Output: 12/30/17 12/30/17 06:59 18:59 Intake Total 500 Balance 500 - Medications Medications: Current Medications Dexamethasone (Decadron) 4 mg PO DAILY [facility] Last Admin: 12/30/17 10:32 Dose: 4 mg Docusate Sodium (Colace) 100 mg PO BID [facility] Last Admin: 12/30/17 10:32 Dose: 100 mg Dronabinol (Marinol) 5 mg PO BID [facility] Last Admin: 12/30/17 10:32 Dose: 5 mg Ergocalciferol (Drisdol 50,000 Intl Units Cap) 1 cap PO QWK [facility] Last Admin: 12/30/17 10:32 Dose: 1 cap Gabapentin (Neurontin) 100 mg PO DAILY [facility] Last Admin: 12/30/17 10:32 Dose: 100 mg Hydromorphone HCl (Dilaudid) 1 mg IVP Q8H PRN PRN Reason: Pain, moderate (4-7) Last Admin: 12/30/17 05:04 Dose: 1 mg Insulin Human Regular (Novolin R) 0 unit SC [facility] PRN Reason: Protocol Last Admin: 12/30/17 08:26 Dose: Not Given Lactulose (Enulose) 20 gm PO Q8H [facility] Last Admin: 12/30/17 10:30 Dose: Not Given Ondansetron HCl (Zofran Inj) 4 mg IVP Q6H [facility] Last Admin: 12/30/17 06:17 Dose: 4 mg Pantoprazole Sodium (Protonix Ec Tab) 40 mg PO DAILY [facility] Last Admin: 12/30/17 10:32 Dose: 40 mg Polyethylene Glycol (Miralax) 17 gm PO BID [facility] Last Admin: 12/30/17 10:32 Dose: Not Given Sennosides (Senokot Tab) 8.6 mg PO DAILY [facility] Last Admin: 12/30/17 10:32 Dose: 8.6 mg - Labs Labs: 12/30/17 06:56 12/30/17 06:56 - Constitutional Appears: Non-toxic, No Acute Distress - Head Exam Head Exam: ATRAUMATIC, NORMOCEPHALIC - Eye Exam Eye Exam: EOMI, Normal appearance - ENT Exam ENT Exam: Mucous Membranes Moist - Respiratory Exam Respiratory Exam: Clear to Ausculation Bilateral, NORMAL BREATHING PATTERN. absent: Accessory Muscle Use, Rales, Rhonchi, Wheezes, Respiratory Distress - Cardiovascular Exam Cardiovascular Exam: REGULAR RHYTHM, +S1, +S2 - GI/Abdominal Exam GI & Abdominal Exam: Soft, Normal Bowel Sounds. absent: Distended, Firm, Guarding, Rigid, Tenderness - Exam Additional comments: herpetic-like appearing lesion in left groin. clusters of mildly-painful blisters. Patient states they itch at times. - Extremities Exam Extremities Exam: absent: Calf Tenderness, Pedal Edema - Neurological Exam Neurological Exam: Alert, Awake, Oriented x3 - Psychiatric Exam Psychiatric exam: Normal Affect, Normal Mood - Skin Skin Exam: Dry, Warm Assessment and Plan - Assessment and Plan (Free Text) Plan: DISPO: Patient will stay in [facility] while she receives her Radiation Therapy at [facility]. Patient lives alone at home and has no transportation to get to her treatments. She is refusing YANIRA. Patient's last day of radiation therapy is scheduled for 01/03/18. Patient to be discharged home after last treatment. Generalized pain 2/2 to metastatic cancer Secondary to Stage IV breast cancer with metastases Hematology and Oncology Consult, Dr. Diane Pain management: * Dilaudid 0.5mg IV Q8H prn---> moderate pain * Dilaudid 1 mg IV Q8H prn----> Severe pain patient has siginficant opiod induced constipation; will benefit from either Relastor or Movantik on d/c to prevent further constipation Rapid Influenza test negative MRI of spine done on 12/18/17 showed metastasis to thoracic spine involving all segments. Small epidural tumor extension posterior to T12 segment which compresses the anterolateral borders of the thecal sac nearly reaching but not significantly compressing the spinal cord. Tumor extending laterally at T11- T12. Please see full report for details. Metastatic breast cancer;chronic Hematology and Oncology Consult, Dr. Diane ---> Help appreciated - Management as per recommendation - On chemotherapy Abdomen/Pelvis CT (12/13/17): Right breast prosthesis; multiple bilateral pulmonary nodules suspicious for metastases; hepatic lesions suspicious for metastases; MRI of spine shows diffuse mets to thoracic spine Chest X-ray (12/13/17):Patchy bilateral mid to lower lobe infiltrate changes with what may represent some concomitant atelectasis both lung bases Brain MRI 12/20/17: 1. 7 x 7 mm enhancing lesion with mild surrounding vasogenic edema in the left superior cerebellar hemisphere concerning for metastasis with the stated clinical history of breast cancer. 2. Few scattered 1-2 mm enhancing foci in the frontal and parietal white matter are nonspecific however superficial cortical metastasis is a consideration with the stated history of breast cancer. Short-term interval follow-up is advised. 3. Mild chronic microangiopathic changes and mild age-related global parenchymal volume loss. * Patient began Radiation Therapy over at [facility] on 12/21/17 * Dr. Rosemarie Holguin consulted - Radiation Oncology * She will need a total of 10 sessions - last session scheduled for 01/03/18. * Patient and family were requesting for patient to stay at [facility] and be transferred back and forth daily as she is comfortable at [facility]. Patient is refusing to go to rehab center. Herpetic-like rash in left groin Started on Valacyclovir 1000mg PO q12h Acyclovir 5% ointment TOP apply BID Patient states she has never had this rash in the past. She noticed it later in the evening and resident was called to examine. Constipation;chronic opioid induced Colace 100mg PO BID Lactulose 20gm PO q8h Miralax 17gm PO BID Senokot 8.6mg PO daily continue to monitor Colitis CT abdomen/Pelvis (12/13/17): descending colon colitis, ileus Will advance diet as tolerated Diabetes mellitus Elevated BS - likely secondary to initiation of Decadron Accuchecks will reevaluation for need of ISS based on accuchecks History of hypertension Stable Reevaluate for need of inpatient medication based on vital signs Q4H History of osteoporosis Continue home medication: * Vitamin D 50,000 units weekly Prophylactic measure GI: Protonix 40mg PO daily DVT: Lovenox 30mg SC daily Palliative care consult - POLST document complete * Patient wants to be a full code. Case discussed with Dr. Charles Perez Tommy PGY1
[2017-12-30] MEDS: Acyclovir 5% Oint (30 gm) EXT SCH ×2 (18:00→21:39)
[2017-12-31] MEDS: Acyclovir 5% Oint (30 gm) EXT SCH ×8 (03:00→21:35)
[2017-12-31] MEDS: HYDROmorphone 1 mg/ml ISec IVP PRN ×2 (05:47→14:21)
[2017-12-31 07:20] LABS: EOS # 0.1 K/uL (0.0-0.7); HEMOGLOBIN 12.1 g/dL (11.0-16.0); MONO # 0.3 K/uL (0.0-0.8); MONO % 6.1 % (0.0-10.0); NRBC % 0.1 % (0.0-2.0)
[2017-12-31] MEDS: (Novolin R) Insulin Human Regular 100 units/ml vial SC SCH ×4 (07:30→21:36)
[2017-12-31 07:59] LABS: BASO % 0.5 % (0.0-2.0); EOS % 1.1 % (0.0-4.0); LYMPH # 0.5 K/uL (1.0-4.3); LYMPH % 9.5 % (20.0-40.0); MEAN CELL VOLUME 86.7 fL (81.0-99.0); MEAN CORPUSCULAR HEMOGLOBIN 28.7 pg (27.0-31.0); MEAN CORPUSCULAR HGB CONC 33.1 g/dL (33.0-37.0); MEAN PLATELET VOLUME 9.3 fL (7.2-11.7); NEUT # 4.4 K/uL (1.8-7.0); NEUT % 82.8 % (50.0-75.0); PLATELET COUNT 141 K/uL (130-400); RBC 4.23 Mil/uL (3.80-5.20); RED CELL DISTRIBUTION WIDTH 18.2 % (11.5-14.5); WHITE BLOOD COUNT 5.3 K/uL (4.8-10.8)
[2017-12-31 08:08] LABS: ALB/GLOB RATIO 1.2 (1.0-2.1); ALBUMIN 3.3 g/dL (3.5-5.0); ALT/SGPT 190 U/L (9-52); AST/SGOT 124 U/L (14-36); BLOOD UREA NITROGEN 10 mg/dL (7-17); CALCIUM 9.8 mg/dl (8.6-10.4); GFR AFRICAN-AMERICAN > 60; GFR NON-AFRICAN AMERICAN > 60
[2017-12-31 09:28] LABS: LYMPHOCYTE 10 % (20-40); MONOCYTE 3 % (0-10); NEUTROPHIL 87 % (50-75); TOTAL CELLS COUNTED 100
[2017-12-31 09:29] LABS: ANISOCYTOSIS SLIGHT; PLATELET ESTIMATE NORMAL (NORMAL)
[2017-12-31] MEDS: Pantoprazole 40 mg EC Tab PO SCH (09:51)
[2017-12-31] MEDS: POLYETHYLENE GLYCOL 3350 17 GM/Dose PACKET PO SCH ×2 (09:55→17:20)
--- NOTE | 2017-12-31 10:46 | CP.PCM.PN ---
Subjective - Date & Time of Evaluation Date of Evaluation: 12/31/17 Time of Evaluation: 10:44 - Subjective Subjective: PGY1 Medicine Note for Dr. Soto Patient seen and examined at bedside this morning. No acute events over night. Today is her second to last day of whole brain radiation. She is excited to be finished so she can go home. Patient states she is feeling well and has no complaints. The rash on her leg is no longer itching after she put the ointment on. Objective - Vital Signs/Intake and Output Vital Signs (last 24 hours): Temp Pulse Resp BP Pulse Ox 98.3 F 75 20 112/62 95 12/31/17 00:00 12/31/17 00:00 12/31/17 00:00 12/31/17 00:00 12/31/17 00:00 - Medications Medications: Current Medications Acyclovir (Zovirax 5% Ointment) 0 gm EXT Q3H [facility] Last Admin: 12/31/17 09:00 Dose: 1 applic Dexamethasone (Decadron) 4 mg PO DAILY [facility] Last Admin: 12/31/17 09:51 Dose: 4 mg Docusate Sodium (Colace) 100 mg PO BID [facility] Last Admin: 12/31/17 10:00 Dose: 100 mg Dronabinol (Marinol) 5 mg PO BID [facility] Last Admin: 12/31/17 09:51 Dose: 5 mg Ergocalciferol (Drisdol 50,000 Intl Units Cap) 1 cap PO QWK [facility] Last Admin: 12/30/17 10:32 Dose: 1 cap Gabapentin (Neurontin) 100 mg PO DAILY [facility] Last Admin: 12/31/17 09:52 Dose: 100 mg Hydromorphone HCl (Dilaudid) 1 mg IVP Q8H PRN PRN Reason: Pain, moderate (4-7) Last Admin: 12/31/17 05:47 Dose: 1 mg Insulin Human Regular (Novolin R) 0 unit SC ACHS [facility] PRN Reason: Protocol Last Admin: 12/31/17 07:30 Dose: Not Given Lactulose (Enulose) 20 gm PO Q8H [facility] Last Admin: 12/31/17 09:55 Dose: Not Given Ondansetron HCl (Zofran Inj) 4 mg IVP Q6H [facility] Last Admin: 02/23/18 05:48 Dose: 4 mg Pantoprazole Sodium (Protonix Ec Tab) 40 mg PO DAILY [facility] Last Admin: 12/31/17 09:51 Dose: 40 mg Polyethylene Glycol (Miralax) 17 gm PO BID [facility] Last Admin: 12/31/17 09:55 Dose: 17 gm Sennosides (Senokot Tab) 8.6 mg PO DAILY [facility] Last Admin: 12/31/17 09:51 Dose: 8.6 mg Valacyclovir HCl (Valtrex) 1,000 mg PO Q12H [facility] Last Admin: 12/31/17 07:00 Dose: 1,000 mg - Labs Labs: 12/31/17 07:05 12/31/17 07:05 - Constitutional Appears: Non-toxic, No Acute Distress - Head Exam Head Exam: ATRAUMATIC, NORMOCEPHALIC - Eye Exam Eye Exam: EOMI, Normal appearance - ENT Exam ENT Exam: Mucous Membranes Moist - Respiratory Exam Respiratory Exam: Clear to Ausculation Bilateral, NORMAL BREATHING PATTERN. absent: Accessory Muscle Use, Rales, Rhonchi, Wheezes, Respiratory Distress - Cardiovascular Exam Cardiovascular Exam: REGULAR RHYTHM, +S1, +S2 - GI/Abdominal Exam GI & Abdominal Exam: Soft. absent: Distended, Firm, Guarding, Rigid, Tenderness , Normal Bowel Sounds - Exam Additional comments: herpetic-like appearing lesion in left groin. Clusters of mildly-painful blisters with slight area of erythema surrounding blisters. - Extremities Exam Extremities Exam: absent: Calf Tenderness, Pedal Edema - Neurological Exam Neurological Exam: Alert, Awake, Oriented x3 - Psychiatric Exam Psychiatric exam: Normal Affect, Normal Mood - Skin Skin Exam: Dry, Warm Assessment and Plan - Assessment and Plan (Free Text) Plan: DISPO: Patient will stay in [facility] while she receives her Radiation Therapy at [facility]. Patient lives alone at home and has no transportation to get to her treatments. She is refusing YANIRA. Patient's last day of radiation therapy is scheduled for 01/03/18. Patient to be discharged home after last treatment. During PT today, 12/31/17, patient was found to be desaturating. Patient became hypoxic at 86% after transfer. She was found to desaturate down to 84% with short gait. Patient's saturation improved to 95% with 2L NC. Recommendation of home oxygen for patient upon discharge. Generalized pain 2/ to metastatic cancer Secondary to Stage IV breast cancer with metastases Hematology and Oncology Consult, Dr. Diane Pain management: * Dilaudid 0.5mg IV Q8H prn---> moderate pain * Dilaudid 1 mg IV Q8H prn----> Severe pain patient has siginficant opiod induced constipation; will benefit from either Relastor or Movantik on d/c to prevent further constipation Rapid Influenza test negative MRI of spine done on 12/18/17 showed metastasis to thoracic spine involving all segments. Small epidural tumor extension posterior to T12 segment which compresses the anterolateral borders of the thecal sac nearly reaching but not significantly compressing the spinal cord. Tumor extending laterally at T11- T12. Please see full report for details. Metastatic breast cancer;chronic Hematology and Oncology Consult, Dr. Diane ---> Help appreciated - Management as per recommendation - On chemotherapy Abdomen/Pelvis CT (12/13/17): Right breast prosthesis; multiple bilateral pulmonary nodules suspicious for metastases; hepatic lesions suspicious for metastases; MRI of spine shows diffuse mets to thoracic spine Chest X-ray (12/13/17):Patchy bilateral mid to lower lobe infiltrate changes with what may represent some concomitant atelectasis both lung bases Brain MRI 12/20/17: 1. 7 x 7 mm enhancing lesion with mild surrounding vasogenic edema in the left superior cerebellar hemisphere concerning for metastasis with the stated clinical history of breast cancer. 2. Few scattered 1-2 mm enhancing foci in the frontal and parietal white matter are nonspecific however superficial cortical metastasis is a consideration with the stated history of breast cancer. Short-term interval follow-up is advised. 3. Mild chronic microangiopathic changes and mild age-related global parenchymal volume loss. * Patient began Radiation Therapy over at [facility] on 12/21/17 * Dr. Rosemarie Holguin consulted - Radiation Oncology * She will need a total of 10 sessions - last session scheduled for 01/03/18. * Patient and family were requesting for patient to stay at [facility] and be transferred back and forth daily as she is comfortable at [facility]. Patient is refusing to go to rehab center. Herpetic-like rash in left groin Valacyclovir 1000mg PO q12h Acyclovir 5% ointment TOP apply BID Constipation;chronic opioid induced Colace 100mg PO BID Lactulose 20gm PO q8h Miralax 17gm PO BID Senokot 8.6mg PO daily continue to monitor Colitis CT abdomen/Pelvis (12/13/17): descending colon colitis, ileus Will advance diet as tolerated Diabetes mellitus Elevated BS - likely secondary to initiation of Decadron Accuchecks will reevaluation for need of ISS based on accuchecks History of hypertension Stable Reevaluate for need of inpatient medication based on vital signs Q4H History of osteoporosis Continue home medication: * Vitamin D 50,000 units weekly Prophylactic measure GI: Protonix 40mg PO daily DVT: Lovenox 30mg SC daily Palliative care consult - POLST document complete * Patient wants to be a full code. Will discuss case with Dr. Charles Perez Tommy PGY1
[2018-01-01] MEDS: Acyclovir 5% Oint (30 gm) EXT SCH ×7 (00:04→17:28)
--- NOTE | 2018-01-01 04:50 | CP.PCM.PN ---
Subjective - Date & Time of Evaluation Date of Evaluation: 01/01/18 Time of Evaluation: 00:10 - Subjective Subjective: Medicine progress note ( Dr. Soto's service) Patient was seen and examined at bedside. Patient was resting comfortably in bed. Patient reports that she is doing well and has no acute or new complaints/ issues. Objective - Vital Signs/Intake and Output Vital Signs (last 24 hours): Temp Pulse Resp BP Pulse Ox 98.4 F 89 20 113/63 94 L 01/01/18 00:00 01/01/18 00:00 01/01/18 00:00 01/01/18 00:00 01/01/18 00:00 Intake and Output: 12/31/17 01/01/18 18:59 06:59 Intake Total 480 Balance 480 - Medications Medications: Current Medications Acyclovir (Zovirax 5% Ointment) 0 gm EXT Q3H [facility] Last Admin: 01/01/18 03:34 Dose: 1 applic Dexamethasone (Decadron) 4 mg PO DAILY [facility] Last Admin: 12/31/17 09:51 Dose: 4 mg Docusate Sodium (Colace) 100 mg PO BID [facility] Last Admin: 12/31/17 17:10 Dose: 100 mg Dronabinol (Marinol) 5 mg PO BID [facility] Last Admin: 12/31/17 17:09 Dose: 5 mg Ergocalciferol (Drisdol 50,000 Intl Units Cap) 1 cap PO QWK [facility] Last Admin: 12/30/17 10:32 Dose: 1 cap Gabapentin (Neurontin) 100 mg PO DAILY [facility] Last Admin: 12/31/17 09:52 Dose: 100 mg Hydromorphone HCl (Dilaudid) 1 mg IVP Q8H PRN PRN Reason: Pain, moderate (4-7) Last Admin: 12/31/17 14:21 Dose: 1 mg Insulin Human Regular (Novolin R) 0 unit SC ACHS [facility] PRN Reason: Protocol Last Admin: 12/31/17 21:36 Dose: Not Given Lactulose (Enulose) 20 gm PO Q8H [facility] Last Admin: 01/01/18 00:32 Dose: Not Given Ondansetron HCl (Zofran Inj) 4 mg IVP Q6H [facility] Last Admin: 01/01/18 00:04 Dose: Not Given Pantoprazole Sodium (Protonix Ec Tab) 40 mg PO DAILY [facility] Last Admin: 12/31/17 09:51 Dose: 40 mg Polyethylene Glycol (Miralax) 17 gm PO BID [facility] Last Admin: 12/31/17 17:20 Dose: Not Given Sennosides (Senokot Tab) 8.6 mg PO DAILY [facility] Last Admin: 12/31/17 09:51 Dose: 8.6 mg Valacyclovir HCl (Valtrex) 1,000 mg PO Q12H [facility] Last Admin: 12/31/17 17:09 Dose: 1,000 mg - Labs Labs: 12/31/17 07:05 12/31/17 07:05 - Constitutional Appears: Well, No Acute Distress - Head Exam Head Exam: ATRAUMATIC, NORMAL INSPECTION - Eye Exam Eye Exam: EOMI, Normal appearance - ENT Exam ENT Exam: Mucous Membranes Moist - Respiratory Exam Respiratory Exam: Clear to Ausculation Bilateral, NORMAL BREATHING PATTERN. absent: Prolonged Expiratory Phase, Rhonchi, Wheezes, Respiratory Distress - Cardiovascular Exam Cardiovascular Exam: REGULAR RHYTHM, +S1, +S2 - GI/Abdominal Exam GI & Abdominal Exam: Soft, Normal Bowel Sounds. absent: Firm, Guarding, Rigid, Tenderness - Exam Additional comments: herpetic-like appearing lesion in left groin. Clusters of mildly-painful blisters with slight area of erythema surrounding blisters. - Extremities Exam Extremities Exam: Normal Inspection - Neurological Exam Neurological Exam: Alert, Awake, Oriented x3 - Psychiatric Exam Psychiatric exam: Normal Affect - Skin Skin Exam: Normal Color Assessment and Plan (1) Generalized pain Assessment & Plan: Generalized pain 2/2 to metastatic cancer Secondary to Stage IV breast cancer with metastases Hematology and Oncology Consult, Dr. Diane Pain management: * Dilaudid 0.5mg IV Q8H prn---> moderate pain * Dilaudid 1 mg IV Q8H prn----> Severe pain patient has siginficant opiod induced constipation; will benefit from either Relastor or Movantik on d/c to prevent further constipation Rapid Influenza test negative MRI of spine done on 12/18/17 showed metastasis to thoracic spine involving all segments. Small epidural tumor extension posterior to T12 segment which compresses the anterolateral borders of the thecal sac nearly reaching but not significantly compressing the spinal cord. Tumor extending laterally at T11- T12. Please see full report for details. Status: Acute (2) Metastatic breast cancer Assessment & Plan: Hematology and Oncology Consult, Dr. Diane ---> Help appreciated - Management as per recommendation - On chemotherapy Abdomen/Pelvis CT (12/13/17): Right breast prosthesis; multiple bilateral pulmonary nodules suspicious for metastases; hepatic lesions suspicious for metastases; MRI of spine shows diffuse mets to thoracic spine Chest X-ray (12/13/17):Patchy bilateral mid to lower lobe infiltrate changes with what may represent some concomitant atelectasis both lung bases Brain MRI 12/20/17: 1. 7 x 7 mm enhancing lesion with mild surrounding vasogenic edema in the left superior cerebellar hemisphere concerning for metastasis with the stated clinical history of breast cancer. 2. Few scattered 1-2 mm enhancing foci in the frontal and parietal white matter are nonspecific however superficial cortical metastasis is a consideration with the stated history of breast cancer. Short-term interval follow-up is advised. 3. Mild chronic microangiopathic changes and mild age-related global parenchymal volume loss. * Patient began Radiation Therapy over at [facility] on 12/21/17 * Dr. Rosemarie Holguin consulted - Radiation Oncology * She will need a total of 10 sessions - last session scheduled for 01/03/18. * Patient and family were requesting for patient to stay at [facility] and be transferred back and forth daily as she is comfortable at [facility]. Patient is refusing to go to rehab center. Status: Chronic (3) Constipation Assessment & Plan: Colace 100mg PO BID Lactulose 20gm PO q8h Miralax 17gm PO BID Senokot 8.6mg PO daily continue to monitor Status: Acute (4) Colitis Assessment & Plan: CT abdomen/Pelvis (12/13/17): descending colon colitis, ileus Discharge from [facility] on short term PO Cipro and Flagyl x 3 more days. ( 12/14/17) Will advance diet as tolerated Status: Resolved (5) Diabetes mellitus Assessment & Plan: Elevated BS - likely secondary to initiation of Decadron Accuchecks reevaluation for need of ISS based on accuchecks Status: Acute (6) History of hypertension Assessment & Plan: Stable Reevaluate for need of inpatient medication based on vital signs Q4H Status: Acute (7) History of osteoporosis Assessment & Plan: Continue home medication: * Vitamin D 50,000 units weekly Status: Acute (8) Prophylactic measure Assessment & Plan: GI: Protonix 40mg PO daily DVT: Lovenox 30mg SC daily Palliative care consult - POLST document complete * Patient wants to be a full code. DISPOSITION: Patient will stay in [facility] while she receives her Radiation Therapy at [facility]. Patient lives alone at home and has no transportation to get to her treatments. She is refusing YANIRA. Patient's last day of radiation therapy is scheduled for 01/03/18. Patient to be discharged home after last treatment. Will discuss case with Dr. Soto Status: Acute
[2018-01-01] MEDS: HYDROmorphone 1 mg/ml ISec IVP PRN ×3 (04:51→21:23)
[2018-01-01 06:22] LABS: BASO % 0.3 % (0.0-2.0); EOS % 0.8 % (0.0-4.0); HEMOGLOBIN 11.7 g/dL (11.0-16.0); LYMPH # 0.3 K/uL (1.0-4.3); LYMPH % 6.4 % (20.0-40.0); MEAN CELL VOLUME 86.2 fL (81.0-99.0); MEAN CORPUSCULAR HEMOGLOBIN 28.5 pg (27.0-31.0); MEAN PLATELET VOLUME 8.7 fL (7.2-11.7); MONO # 0.3 K/uL (0.0-0.8); MONO % 7.3 % (0.0-10.0); NEUT % 85.2 % (50.0-75.0); NRBC % 0.1 % (0.0-2.0); PLATELET COUNT 124 K/uL (130-400); RBC 4.12 Mil/uL (3.80-5.20); RED CELL DISTRIBUTION WIDTH 17.8 % (11.5-14.5); WHITE BLOOD COUNT 4.7 K/uL (4.8-10.8)
[2018-01-01 06:39] LABS: ALB/GLOB RATIO 1.4 (1.0-2.1); ALBUMIN 3.4 g/dL (3.5-5.0); ALT/SGPT 203 U/L (9-52); AST/SGOT 124 U/L (14-36); BLOOD UREA NITROGEN 14 mg/dL (7-17); CALCIUM 9.5 mg/dl (8.6-10.4); GFR AFRICAN-AMERICAN > 60; GFR NON-AFRICAN AMERICAN > 60
[2018-01-01] MEDS: (Novolin R) Insulin Human Regular 100 units/ml vial SC SCH ×4 (08:03→21:24)
[2018-01-01] MEDS: POLYETHYLENE GLYCOL 3350 17 GM/Dose PACKET PO SCH ×2 (09:32→17:15)
[2018-01-01] MEDS: Pantoprazole 40 mg EC Tab PO SCH (09:33)
[2018-01-01 10:38] LABS: EOSINOPHIL 1 % (0-4); LYMPHOCYTE 3 % (20-40); MONOCYTE 7 % (0-10); NEUTROPHIL 89 % (50-75); PLATELET ESTIMATE SLIGHTLY DECREASED (NORMAL); TOTAL CELLS COUNTED 100
[2018-01-01 10:40] LABS: ANISOCYTOSIS SLIGHT
[2018-01-01 10:41] LABS: OVALOCYTES MODERATE
--- NOTE | 2018-01-02 01:22 | CP.PCM.PN ---
Subjective - Date & Time of Evaluation Date of Evaluation: 01/02/18 Time of Evaluation: 00:45 - Subjective Subjective: Medicine progress note ( Dr. Soto's service) Patient was seen and examined at bedside. Patient was resting comfortably in bed. Patient reports that she is doing well and has no acute or new complaints/ issues. Objective - Vital Signs/Intake and Output Vital Signs (last 24 hours): Temp Pulse Resp BP Pulse Ox 97.7 F 81 20 101/56 L 96 01/01/18 17:12 01/01/18 17:12 01/01/18 17:12 01/01/18 17:12 01/01/18 17:12 Intake and Output: 01/01/18 01/02/18 18:59 06:59 Intake Total 600 360 Output Total 2 Balance 600 358 - Medications Medications: Current Medications Acyclovir (Zovirax 5% Ointment) 0 gm EXT Q3H [facility] Last Admin: 01/01/18 17:28 Dose: 1 applic Dexamethasone (Decadron) 4 mg PO DAILY [facility] Last Admin: 01/01/18 09:30 Dose: 4 mg Docusate Sodium (Colace) 100 mg PO BID [facility] Last Admin: 01/01/18 17:16 Dose: Not Given Dronabinol (Marinol) 5 mg PO BID [facility] Last Admin: 01/01/18 17:22 Dose: 5 mg Ergocalciferol (Drisdol 50,000 Intl Units Cap) 1 cap PO QWK [facility] Last Admin: 12/30/17 10:32 Dose: 1 cap Gabapentin (Neurontin) 100 mg PO DAILY [facility] Last Admin: 01/01/18 09:33 Dose: 100 mg Hydromorphone HCl (Dilaudid) 1 mg IVP Q8H PRN PRN Reason: Pain, moderate (4-7) Last Admin: 01/01/18 21:23 Dose: 1 mg Insulin Human Regular (Novolin R) 0 unit SC ACHS [facility] PRN Reason: Protocol Last Admin: 01/01/18 21:24 Dose: 2 unit Lactulose (Enulose) 20 gm PO Q8H [facility] Last Admin: 01/01/18 17:15 Dose: Not Given Ondansetron HCl (Zofran Inj) 4 mg IVP Q6H [facility] Last Admin: 01/01/18 18:53 Dose: 4 mg Pantoprazole Sodium (Protonix Ec Tab) 40 mg PO DAILY [facility] Last Admin: 01/01/18 09:33 Dose: 40 mg Polyethylene Glycol (Miralax) 17 gm PO BID [facility] Last Admin: 01/01/18 17:15 Dose: Not Given Sennosides (Senokot Tab) 8.6 mg PO DAILY [facility] Last Admin: 01/01/18 09:33 Dose: 8.6 mg Valacyclovir HCl (Valtrex) 1,000 mg PO Q12H [facility] Last Admin: 01/01/18 17:22 Dose: 1,000 mg - Labs Labs: 01/01/18 06:14 01/01/18 06:14 - Constitutional Appears: Well, No Acute Distress - Head Exam Head Exam: ATRAUMATIC - Eye Exam Eye Exam: EOMI - ENT Exam ENT Exam: Mucous Membranes Moist - Respiratory Exam Respiratory Exam: Clear to Ausculation Bilateral, NORMAL BREATHING PATTERN. absent: Rhonchi, Wheezes, Respiratory Distress - Cardiovascular Exam Cardiovascular Exam: REGULAR RHYTHM, +S1, +S2 - GI/Abdominal Exam GI & Abdominal Exam: Soft, Normal Bowel Sounds. absent: Firm, Guarding, Rigid - Neurological Exam Neurological Exam: Alert, Awake, Oriented x3 - Psychiatric Exam Psychiatric exam: Normal Affect - Skin Skin Exam: Normal Color Assessment and Plan (1) Generalized pain Assessment & Plan: Generalized pain 2/2 to metastatic cancer Secondary to Stage IV breast cancer with metastases Hematology and Oncology Consult, Dr. Diane Pain management: * Dilaudid 0.5mg IV Q8H prn---> moderate pain * Dilaudid 1 mg IV Q8H prn----> Severe pain patient has siginficant opiod induced constipation; will benefit from either Relastor or Movantik on d/c to prevent further constipation Rapid Influenza test negative MRI of spine done on 12/18/17 showed metastasis to thoracic spine involving all segments. Small epidural tumor extension posterior to T12 segment which compresses the anterolateral borders of the thecal sac nearly reaching but not significantly compressing the spinal cord. Tumor extending laterally at T11- T12. Please see full report for details. Status: Acute (2) Metastatic breast cancer Assessment & Plan: Hematology and Oncology Consult, Dr. Diane ---> Help appreciated - Management as per recommendation - On chemotherapy Abdomen/Pelvis CT (12/13/17): Right breast prosthesis; multiple bilateral pulmonary nodules suspicious for metastases; hepatic lesions suspicious for metastases; MRI of spine shows diffuse mets to thoracic spine Chest X-ray (12/13/17):Patchy bilateral mid to lower lobe infiltrate changes with what may represent some concomitant atelectasis both lung bases Brain MRI 12/20/17: 1. 7 x 7 mm enhancing lesion with mild surrounding vasogenic edema in the left superior cerebellar hemisphere concerning for metastasis with the stated clinical history of breast cancer. 2. Few scattered 1-2 mm enhancing foci in the frontal and parietal white matter are nonspecific however superficial cortical metastasis is a consideration with the stated history of breast cancer. Short-term interval follow-up is advised. 3. Mild chronic microangiopathic changes and mild age-related global parenchymal volume loss. * Patient began Radiation Therapy over at [facility] on 12/21/17 * Dr. Rosemarie Holguin consulted - Radiation Oncology * She will need a total of 10 sessions - last session scheduled for 01/03/18. * Patient and family were requesting for patient to stay at [facility] and be transferred back and forth daily as she is comfortable at [facility]. Patient is refusing to go to rehab [facility] Status: Chronic (3) Constipation Assessment & Plan: Colace 100mg PO BID Lactulose 20gm PO q8h Miralax 17gm PO BID Senokot 8.6mg PO daily continue to monitor Status: Acute (4) Colitis Assessment & Plan: CT abdomen/Pelvis (12/13/17): descending colon colitis, ileus Discharge from [facility] on short term PO Cipro and Flagyl x 3 more days. ( 12/14/17) Will advance diet as tolerated Status: Resolved (5) Diabetes mellitus Assessment & Plan: Elevated BS - likely secondary to initiation of Decadron Accuchecks reevaluation for need of ISS based on accuchecks Status: Acute (6) History of hypertension Assessment & Plan: Stable Reevaluate for need of inpatient medication based on vital signs Q4H Status: Acute (7) History of osteoporosis Assessment & Plan: Continue home medication: * Vitamin D 50,000 units weekly Status: Acute (8) Prophylactic measure Assessment & Plan: GI: Protonix 40mg PO daily DVT: Lovenox 30mg SC daily Palliative care consult - POLST document complete * Patient wants to be a full code. DISPOSITION: Patient will stay in [facility] while she receives her Radiation Therapy at [facility]. Patient lives alone at home and has no transportation to get to her treatments. She is refusing YANIRA. Patient's last day of radiation therapy is scheduled for 01/03/18. Patient to be discharged home after last treatment. Will discuss case with Dr. Soto Status: Acute
[2018-01-02] MEDS: Acyclovir 5% Oint (30 gm) EXT SCH ×8 (03:00→22:00)
[2018-01-02] MEDS: HYDROmorphone 1 mg/ml ISec IVP PRN ×2 (06:36→14:34)
[2018-01-02] MEDS: (Novolin R) Insulin Human Regular 100 units/ml vial SC SCH ×3 (07:39→17:30)
[2018-01-02 08:15] LABS: BASO % 0.2 % (0.0-2.0); EOS % 1.1 % (0.0-4.0); HEMOGLOBIN 11.8 g/dL (11.0-16.0); LYMPH # 0.4 K/uL (1.0-4.3); LYMPH % 10.4 % (20.0-40.0); MEAN CELL VOLUME 86.6 fL (81.0-99.0); MEAN CORPUSCULAR HGB CONC 33.5 g/dL (33.0-37.0); MEAN PLATELET VOLUME 9.4 fL (7.2-11.7); MONO # 0.3 K/uL (0.0-0.8); MONO % 6.5 % (0.0-10.0); NEUT # 3.5 K/uL (1.8-7.0); NEUT % 81.8 % (50.0-75.0); NRBC % 0.1 % (0.0-2.0); RBC 4.06 Mil/uL (3.80-5.20); WHITE BLOOD COUNT 4.3 K/uL (4.8-10.8)
[2018-01-02 08:41] LABS: ALB/GLOB RATIO 1.2 (1.0-2.1); ALBUMIN 3.3 g/dL (3.5-5.0); ALT/SGPT 219 U/L (9-52); AST/SGOT 135 U/L (14-36); BLOOD UREA NITROGEN 12 mg/dL (7-17); CALCIUM 9.7 mg/dl (8.6-10.4); GFR AFRICAN-AMERICAN > 60; GFR NON-AFRICAN AMERICAN > 60
[2018-01-02] MEDS: POLYETHYLENE GLYCOL 3350 17 GM/Dose PACKET PO SCH ×2 (09:41→18:12)
[2018-01-02] MEDS: Pantoprazole 40 mg EC Tab PO SCH (09:42)
[2018-01-03] MEDS: HYDROmorphone 1 mg/ml ISec IVP PRN ×2 (00:42→10:08)
[2018-01-03] MEDS: Acyclovir 5% Oint (30 gm) EXT SCH ×7 (00:43→17:32)
[2018-01-03] MEDS: (Novolin R) Insulin Human Regular 100 units/ml vial SC SCH ×3 (07:30→17:13)
[2018-01-03 07:37] LABS: BASO % 0.1 % (0.0-2.0); EOS # 0.1 K/uL (0.0-0.7); EOS % 1.6 % (0.0-4.0); LYMPH # 0.4 K/uL (1.0-4.3); LYMPH % 10.3 % (20.0-40.0); MEAN CELL VOLUME 87.2 fL (81.0-99.0); MEAN CORPUSCULAR HEMOGLOBIN 28.7 pg (27.0-31.0); MEAN PLATELET VOLUME 9.3 fL (7.2-11.7); MONO # 0.3 K/uL (0.0-0.8); NEUT # 3.3 K/uL (1.8-7.0); NRBC % 0.4 % (0.0-2.0); RBC 4.18 Mil/uL (3.80-5.20); RED CELL DISTRIBUTION WIDTH 17.9 % (11.5-14.5); WHITE BLOOD COUNT 4.1 K/uL (4.8-10.8)
[2018-01-03 08:19] LABS: ALB/GLOB RATIO 1.2 (1.0-2.1); ALBUMIN 3.3 g/dL (3.5-5.0); ALT/SGPT 228 U/L (9-52); AST/SGOT 147 U/L (14-36); BLOOD UREA NITROGEN 13 mg/dL (7-17); CALCIUM 9.6 mg/dl (8.6-10.4); GFR AFRICAN-AMERICAN > 60; GFR NON-AFRICAN AMERICAN > 60
[2018-01-03] MEDS: POLYETHYLENE GLYCOL 3350 17 GM/Dose PACKET PO SCH ×2 (09:32→17:32)
[2018-01-03 09:33] VITALS: PULSE 86
[2018-01-03] MEDS: Pantoprazole 40 mg EC Tab PO SCH (09:33)
[2018-01-03] MEDS ORDERED: HYDROmorphone 0.5 mg/0.5 ml ISec IVP ONE (15:45)
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
[2018-01-03 16:56] VITALS: BP 112/53; TEMP 98.4; O2SAT 95
== END 2018-01-03 19:10 | disposition home or self-care (01) | DRG 597 ==
LOC: C.ER 15:45 → C.9E 18:27 → C.3T 12-17 01:17
PROVIDERS: ADMIT Internal Medicine; ATTEND Internal Medicine
DX: C50.919 Malignant neoplasm of unspecified site of unspecified female breast (principal); G93.6 Cerebral edema; C79.51 Secondary malignant neoplasm of bone; C79.31 Secondary malignant neoplasm of brain; K56.7 Ileus, unspecified; G89.3 Neoplasm related pain (acute) (chronic); I10 Essential (primary) hypertension; K52.9 Noninfective gastroenteritis and colitis, unspecified; K57.30 Diverticulosis of large intestine without perforation or abscess without bleeding; M81.0 Age-related osteoporosis without current pathological fracture; Z51.5 Encounter for palliative care; Z66 Do not resuscitate; Z98.82 Breast implant status; K59.00 Constipation, unspecified; K52.89 Other specified noninfective gastroenteritis and colitis; E11.9 Type 2 diabetes mellitus without complications; Z79.4 Long term (current) use of insulin

== ENCOUNTER 2018-01-11 19:20 | Inpatient (IN) | payer MEDICARE, MEDICAID ==
[2018-01-11 19:21] VITALS: BMI 26.3
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
[2018-01-11 21:06] LABS: HEMOGLOBIN 12.6 g/dL (11.0-16.0); MEAN CELL VOLUME 86.3 fL (81.0-99.0); MEAN CORPUSCULAR HEMOGLOBIN 29.4 pg (27.0-31.0); MEAN CORPUSCULAR HGB CONC 34.1 g/dL (33.0-37.0); MEAN PLATELET VOLUME 9.1 fL (7.2-11.7); PLATELET COUNT 196 K/uL (130-400); RBC 4.27 Mil/uL (3.80-5.20); RED CELL DISTRIBUTION WIDTH 20.5 % (11.5-14.5); WHITE BLOOD COUNT 4.3 K/uL (4.8-10.8)
[2018-01-11] MEDS ORDERED: HYDROmorphone 1 mg/ml ISec IVP STA (21:11)
[2018-01-11 21:14] LABS: INR 1.3; PROTHROMBIN TIME 15.1 SECONDS (9.7-12.2)
[2018-01-11 21:15] LABS: ALB/GLOB RATIO 0.9 (1.0-2.1); ALBUMIN 3.2 g/dL (3.5-5.0); ALT/SGPT 190 U/L (9-52); AST/SGOT 148 U/L (14-36); BLOOD UREA NITROGEN 13 mg/dL (7-17); CALCIUM 9.3 mg/dl (8.6-10.4); GFR AFRICAN-AMERICAN > 60; GFR NON-AFRICAN AMERICAN > 60; LIPASE 50 U/L (23-300)
[2018-01-11] MEDS ORDERED: HYDROmorphone 0.5 mg/0.5 ml ISec ONE (21:15)
[2018-01-11 21:23] LABS: SQUAMOUS EPITHIAL 2 /hpf (0-5); URINE BACTERIA FEW (<OCC); URINE BILIRUBIN 2+ (NEGATIVE); URINE BLOOD NEGATIVE (NEGATIVE); URINE CLARITY Hazy (Clear); URINE GLUCOSE (UA) 3+ mg/dL (Normal); URINE LEUKOCYTE ESTERASE NEG Leu/uL (Negative); URINE PROTEIN 1+ mg/dL (NEGATIVE)
[2018-01-11 21:26] LABS: B-TYPE NATRIURETIC PEPTIDE 61.5 pg/mL (0-900)
[2018-01-11 21:26] LABS: URINE COLOR ORANGE (YELLOW)
[2018-01-11 22:19] LABS: LYMPH # 0.1 K/uL (1.0-4.3)
[2018-01-11 22:20] LABS: MONO # 0.2 K/uL (0.0-0.8)
[2018-01-11 22:53] VITALS: RESP 20
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
[2018-01-12] MEDS ORDERED: HYDROmorphone 1 mg/ml ISec IVP PRN (03:00)
[2018-01-12 07:10] LABS: HEMOGLOBIN 11.4 g/dL (11.0-16.0); MEAN CELL VOLUME 85.8 fL (81.0-99.0); MEAN CORPUSCULAR HEMOGLOBIN 29.5 pg (27.0-31.0); MEAN CORPUSCULAR HGB CONC 34.4 g/dL (33.0-37.0); MEAN PLATELET VOLUME 8.8 fL (7.2-11.7); PLATELET COUNT 164 K/uL (130-400); RBC 3.88 Mil/uL (3.80-5.20); RED CELL DISTRIBUTION WIDTH 20.4 % (11.5-14.5); WHITE BLOOD COUNT 4.3 K/uL (4.8-10.8)
[2018-01-12 07:45] LABS: ALB/GLOB RATIO 0.8 (1.0-2.1); ALT/SGPT 181 U/L (9-52); AST/SGOT 200 U/L (14-36); BLOOD UREA NITROGEN 10 mg/dL (7-17); CALCIUM 9.4 mg/dl (8.6-10.4); GFR AFRICAN-AMERICAN > 60; GFR NON-AFRICAN AMERICAN > 60
[2018-01-12] MEDS: (Novolin R) Insulin Human Regular 100 units/ml vial SC SCH ×4 (07:49→22:12)
--- NOTE | 2018-01-12 08:33 | RAD ---
PROCEDURE: CHEST RADIOGRAPH, 1 VIEW HISTORY: abd pain COMPARISON: CT chest dated 12/13/2017 performed at [facility]. FINDINGS: LUNGS: Bilateral multifocal opacities. PLEURA: No pneumothorax or pleural fluid seen. CARDIOVASCULAR: Atherosclerotic aortic calcifications. Cardiomediastinal silhouette within normal limits OSSEOUS STRUCTURES: Unchanged. VISUALIZED UPPER ABDOMEN: Normal. OTHER FINDINGS: Right axillary surgical clips. Left subclavian access chest port, unchanged. Partially imaged right breast prosthesis redemonstrated. IMPRESSION: Similar appearance of bilateral multifocal opacities ; on prior chest CT, these were characterized as metastases.
[2018-01-12 09:41] LABS: LYMPH # 0.4 K/uL (1.0-4.3); MONO # 0.1 K/uL (0.0-0.8); NEUT # 3.7 K/uL (1.8-7.0)
[2018-01-12 09:45] LABS: ANISOCYTOSIS SLIGHT; BASOPHIL 1 % (0-2); EOSINOPHIL 1 % (0-4); LYMPHOCYTE 10 % (20-40); MONOCYTE 3 % (0-10); NEUTROPHIL 85 % (50-75); PLATELET ESTIMATE NORMAL (NORMAL); POIKILOCYTOSIS SLIGHT; TOTAL CELLS COUNTED 100
[2018-01-12] MEDS: Pantoprazole 40 mg EC Tab PO SCH (09:45)
[2018-01-12] MEDS: Enoxaparin 40 mg Syringe SC SCH (09:45)
[2018-01-12 09:46] LABS: HYPOCHROMIC SLIGHT; OVALOCYTES SLIGHT
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
--- NOTE | 2018-01-12 11:36 | US ---
HISTORY: jaundice COMPARISON: CT scan of the abdomen and pelvis dated 12/13/2017 performed at [facility]. TECHNIQUE: Sonographic evaluation of the right upper quadrant of the abdomen. FINDINGS: LIVER: Measures 16.3 cm in length. Increased echogenicity of the liver parenchyma. Multiple hypoechoic masses including 3.8 x 1.9 x 2.9 cm, 4.3 x 3.3 x 4.4 cm and 2.7 x 3.2 x 3.4 cm masses in the right hepatic lobe. Moderate intrahepatic biliary ductal dilatation. GALLBLADDER: Surgically absent COMMON BILE DUCT: Dilated, measuring 15 mm. No stones. No dilatation. PANCREAS: Limited evaluation. Ductal dilatation. RIGHT KIDNEY: Measures 11.7 x 4.5 x 5.5 cm in length. Lower pole cyst measuring 3.6 x 3.7 x 3.6 cm. Normal echogenicity. No calculus, mass, or hydronephrosis. AORTA: No aneurysmal dilatation. IVC: Unremarkable. OTHER FINDINGS: None . IMPRESSION: Multiple hepatic metastases, the largest of which measures up to 4.4 cm. Intra and extrahepatic biliary ductal dilatation as well as pancreatic duct dilatation. These findings were previously seen and described on recent CT scan of the abdomen dated 12/13/2017
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
[2018-01-12] MEDS: HYDROmorphone 1 mg/ml ISec IVP PRN ×2 (13:45→18:28)
[2018-01-13] MEDS: HYDROmorphone 1 mg/ml ISec IVP PRN ×3 (02:31→14:50)
[2018-01-13 07:27] LABS: ALB/GLOB RATIO 0.9 (1.0-2.1); ALBUMIN 2.8 g/dL (3.5-5.0); ALT/SGPT 187 U/L (9-52); AST/SGOT 193 U/L (14-36); BLOOD UREA NITROGEN 8 mg/dL (7-17); CALCIUM 8.8 mg/dl (8.6-10.4); GFR AFRICAN-AMERICAN > 60; GFR NON-AFRICAN AMERICAN > 60
[2018-01-13 07:30] LABS: HEMOGLOBIN 10.9 g/dL (11.0-16.0); MEAN CELL VOLUME 86.3 fL (81.0-99.0); MEAN CORPUSCULAR HEMOGLOBIN 30.1 pg (27.0-31.0); MEAN CORPUSCULAR HGB CONC 34.8 g/dL (33.0-37.0); PLATELET COUNT 156 K/uL (130-400); RBC 3.63 Mil/uL (3.80-5.20); RED CELL DISTRIBUTION WIDTH 20.1 % (11.5-14.5); WHITE BLOOD COUNT 4.1 K/uL (4.8-10.8)
[2018-01-13] MEDS: (Novolin R) Insulin Human Regular 100 units/ml vial SC SCH ×4 (08:21→21:35)
[2018-01-13 09:02] LABS: EOS # 0.1 K/uL (0.0-0.7); LYMPH # 0.1 K/uL (1.0-4.3); MONO # 0.3 K/uL (0.0-0.8); NEUT # 3.7 K/uL (1.8-7.0)
[2018-01-13 09:04] LABS: EOSINOPHIL 1 % (0-4); MONOCYTE 7 % (0-10); TOTAL CELLS COUNTED 100
[2018-01-13 09:05] LABS: ANISOCYTOSIS SLIGHT; HYPOCHROMIC SLIGHT; LYMPHOCYTE 2 % (20-40); NEUTROPHIL 90 % (50-75); PLATELET ESTIMATE NORMAL (NORMAL); POIKILOCYTOSIS SLIGHT
[2018-01-13 09:06] LABS: GIANT PLATELETS PRESENT; OVALOCYTES SLIGHT
--- NOTE | 2018-01-13 09:23 | CP.PCM.PN ---
<Gretchen Bennett - Last Filed: 01/13/18 09:27> Subjective - Date & Time of Evaluation Date of Evaluation: 01/13/18 Time of Evaluation: 08:00 - Subjective Subjective: PGY4 GI Follow-up Pt seen and examined bedside No complaints other than constipation denies any abd pain, SOB, or CP tolerating diet ROS: 10 point ROS conducted, neg other than above Objective - Vital Signs/Intake and Output Vital Signs (last 24 hours): Temp Pulse Resp BP Pulse Ox 98.6 F 101 H 20 121/67 95 01/13/18 08:31 01/13/18 08:31 01/13/18 08:31 01/13/18 08:31 01/13/18 08:31 Intake and Output: 01/13/18 01/13/18 06:59 18:59 Intake Total 360 Balance 360 - Medications Medications: Current Medications Docusate Sodium (Colace) 100 mg PO BID [facility] Last Admin: 01/12/18 18:21 Dose: 100 mg Enoxaparin Sodium (Lovenox) 40 mg SC DAILY [facility] Last Admin: 01/12/18 09:45 Dose: 40 mg Hydromorphone HCl (Dilaudid) 0.5 mg IVP Q6H PRN PRN Reason: Pain, moderate (4-7) Hydromorphone HCl (Dilaudid) 1 mg IVP Q4H PRN PRN Reason: Pain, severe (8-10) Last Admin: 01/13/18 02:31 Dose: 1 mg Insulin Human Regular (Novolin R) 0 unit SC [facility] PRN Reason: Protocol Last Admin: 01/13/18 08:21 Dose: Not Given Lactulose (Enulose) 20 gm PO Q8H [facility] Last Admin: 01/13/18 01:08 Dose: 20 gm Pantoprazole Sodium (Protonix Ec Tab) 40 mg PO DAILY [facility] Last Admin: 01/12/18 09:45 Dose: 40 mg - Labs Labs: 01/13/18 06:58 01/13/18 06:58 PT 15.1 SECONDS (9.7-12.2) H 01/11/18 20:56 INR 1.3 01/11/18 20:56 APTT 30 SECONDS (21-34) 01/11/18 20:56 - Constitutional Appears: Well, No Acute Distress - Head Exam Head Exam: ATRAUMATIC, NORMOCEPHALIC - Eye Exam Eye Exam: Normal appearance - ENT Exam ENT Exam: Mucous Membranes Moist, Normal Exam - Respiratory Exam Respiratory Exam: Clear to Ausculation Bilateral, NORMAL BREATHING PATTERN. absent: Rales, Rhonchi, Wheezes, Respiratory Distress - Cardiovascular Exam Cardiovascular Exam: REGULAR RHYTHM, +S1, +S2 - GI/Abdominal Exam GI & Abdominal Exam: Soft, Normal Bowel Sounds. 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 Oliveros, MRI reviewed by Dr. Oliveros. recommend IR percutaneous drain continue current diet monitor LFTs rest of GI care as per primary GI Thank you for the consultation D/W Dr. Babb <Solitario Babb - Last Filed: 01/13/18 09:36> Objective - Vital Signs/Intake and Output Vital Signs (last 24 hours): Temp Pulse Resp BP Pulse Ox 98.6 F 101 H 20 121/67 95 01/13/18 08:31 01/13/18 08:31 01/13/18 08:31 01/13/18 08:31 01/13/18 08:31 Intake and Output: 01/13/18 01/13/18 06:59 18:59 Intake Total 360 Balance 360 - Medications Medications: Current Medications Docusate Sodium (Colace) 100 mg PO BID [facility] Last Admin: 01/12/18 18:21 Dose: 100 mg Enoxaparin Sodium (Lovenox) 40 mg SC DAILY [facility] Last Admin: 01/12/18 09:45 Dose: 40 mg Hydromorphone HCl (Dilaudid) 0.5 mg IVP Q6H PRN PRN Reason: Pain, moderate (4-7) Hydromorphone HCl (Dilaudid) 1 mg IVP Q4H PRN PRN Reason: Pain, severe (8-10) Last Admin: 01/13/18 09:25 Dose: 1 mg Insulin Human Regular (Novolin R) 0 unit SC [facility] PRN Reason: Protocol Last Admin: 01/13/18 08:21 Dose: Not Given Lactulose (Enulose) 20 gm PO Q8H [facility] Last Admin: 01/13/18 01:08 Dose: 20 gm Pantoprazole Sodium (Protonix Ec Tab) 40 mg PO DAILY [facility] Last Admin: 01/12/18 09:45 Dose: 40 mg - Labs Labs: 01/13/18 06:58 01/13/18 06:58 PT 15.1 SECONDS (9.7-12.2) H 01/11/18 20:56 INR 1.3 01/11/18 20:56 APTT 30 SECONDS (21-34) 01/11/18 20:56 Attending/Attestation - Attestation I have personally seen and examined this patient.: Yes I have fully participated in the care of the patient.: Yes I have reviewed all pertinent clinical information, including history, physical exam and plan: Yes Notes (Text): 01/13/18 09:33 I have seen and examined patient with GI fellow. No acute events overnight. She endorses ongoing constipation but otherwise denies abdominal pain, nausea, vomiting, fever/chills. Tolerating diet without difficulty. Review of vitals from today shows tachycardia. 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 This was discussed with Dr. Schilling. Will sign off case, please reconsult as necessary, thank you.
[2018-01-13] MEDS: Enoxaparin 40 mg Syringe SC SCH (09:34)
[2018-01-13] MEDS: Pantoprazole 40 mg EC Tab PO SCH (09:34)
--- NOTE | 2018-01-13 10:05 | MRI ---
PROCEDURE: Magnetic Resonance Cholangiopancreatography HISTORY: COMPARISON: None ultrasound 01/12/2018.. TECHNIQUE: Multiplanar, multisequence MR images of the abdomen were obtained, including heavily T2 weighted MRCP images of the biliary system. Rotating maximum intensity projection images of the biliary system were generated. FINDINGS: MRCP: The the mid CBD is dilated up to 12.6 mm with 14.5 proximal common hepatic duct although proximal CBD. Pancreatic duct is dilated up to 6 mm. There is also prominent intrahepatic biliary dilatation greater at the left and right lobes. LIVER: Numerous hepatic lesions are scattered throughout the right greater than left lobe liver suspicious for metastasis though intravenous contrast and not been given in this examination. The largest identified at the right lobe liver inferiorly measuring 3.0 x 6.5 cm which likely reflects a confluence of hepatic masses rather than a solitary lesion. GALLBLADDER: Prior cholecystectomy evident. SPLEEN: Unremarkable. PANCREAS: Unremarkable. ADRENALS: Unremarkable. KIDNEYS: 3.8 cm cyst right kidney lower pole. No obstructive uropathy bilaterally. No definite focal left renal lesion identified. An additional sub cm likely cyst is noted at the right midpole anteriorly. AORTA: No aneurysm. ASCITES: None. OTHER FINDINGS: None. IMPRESSION: Extensive biliary obstruction is appreciated likely on the basis of beth hepatis hepatic mass with pancreatic duct also dilated as discussed above. No pancreatic head or ampullary mass is not excluded, though none is clearly delineated in this noncontrast MR examination, given prominence of the pancreatic duct. Overall pattern likely reflects metastasis throughout the liver including the beth hepatis region. Still, cholangiocarcinoma or Kl[place]kin tumor not completely excluded. Right renal cysts identified. Concordant preliminary report from [facility], 01/12/2018.
--- NOTE | 2018-01-13 10:47 | CP.PCM.PN ---
Subjective - Date & Time of Evaluation Date of Evaluation: 01/13/18 Time of Evaluation: 10:25 - Subjective Subjective: F/U jaundice. Reports poor appetitie. Had nl BM today. Denies fever, chills, SZ, LOC, VITAL, cough, SZ, hematuria, hemoptysis Objective - Vital Signs/Intake and Output Vital Signs (last 24 hours): Temp Pulse Resp BP Pulse Ox 98.6 F 101 H 20 121/67 95 01/13/18 08:31 01/13/18 08:31 01/13/18 08:31 01/13/18 08:31 01/13/18 08:31 Intake and Output: 01/13/18 01/13/18 06:59 18:59 Intake Total 360 Balance 360 - Medications Medications: Current Medications Docusate Sodium (Colace) 100 mg PO BID [facility] Last Admin: 01/13/18 09:34 Dose: 100 mg Enoxaparin Sodium (Lovenox) 40 mg SC DAILY [facility] Last Admin: 01/13/18 09:34 Dose: 40 mg Hydromorphone HCl (Dilaudid) 0.5 mg IVP Q6H PRN PRN Reason: Pain, moderate (4-7) Hydromorphone HCl (Dilaudid) 1 mg IVP Q4H PRN PRN Reason: Pain, severe (8-10) Last Admin: 01/13/18 09:25 Dose: 1 mg Insulin Human Regular (Novolin R) 0 unit SC [facility] PRN Reason: Protocol Last Admin: 01/13/18 08:21 Dose: Not Given Lactulose (Enulose) 20 gm PO Q8H [facility] Last Admin: 01/13/18 09:34 Dose: 20 gm Pantoprazole Sodium (Protonix Ec Tab) 40 mg PO DAILY [facility] Last Admin: 01/13/18 09:34 Dose: 40 mg - Labs Labs: 01/13/18 06:58 01/13/18 06:58 PT 15.1 SECONDS (9.7-12.2) H 01/11/18 20:56 INR 1.3 01/11/18 20:56 APTT 30 SECONDS (21-34) 01/11/18 20:56 - Constitutional Appears: Non-toxic - Neck Exam Neck Exam: absent: Tenderness - Respiratory Exam Respiratory Exam: Clear to Ausculation Bilateral - Cardiovascular Exam Cardiovascular Exam: RRR - GI/Abdominal Exam GI & Abdominal Exam: Soft, Normal Bowel Sounds. absent: Guarding, Rebound - Extremities Exam Extremities Exam: absent: Calf Tenderness - Neurological Exam Neurological Exam: Alert, Oriented x3 Assessment and Plan (1) Jaundice Assessment & Plan: TB 14. Biliary obstruction- mets. - not amenable to ERCP. Consider trans - hepatic for stent. Status: Acute (2) Abdominal pain Assessment & Plan: Met CA Status: Acute (3) Diabetes mellitus Status: Chronic (4) Metastatic breast cancer Assessment & Plan: Mets to liver. Status: Chronic
--- NOTE | 2018-01-13 15:18 | CARD ---
APPROVED REPORT EKG Measurement Heart [id number] <Conclusion> Poor data quality, interpretation may be adversely affected Sinus rhythm with occasional premature ventricular complexes Otherwise normal ECG
--- NOTE | 2018-01-13 20:36 | CON ---
DATE: ONCOLOGY CONSULTATION HISTORY OF PRESENT ILLNESS: This is an 82-year-old woman with well known breast cancer widely metastatic to her and to bones. She has been under therapy since 2016 and at that time presented with the breast cancer widely metastatic to her liver. She has been under the care of Dr. Baig who will be back from vacation next week; but in any event, the patient has been without chemotherapy now for a while and she has been treated for symptom control. She was just recently discharged from the hospital, sent home and because of her severe weakness and icterus, she was put back to the hospital. PHYSICAL EXAMINATION: General: The patient is very weak, relatively lethargic, does admit . SKIN: No petechiae. No bruises. HEENT: Anicteric. NODES: Nonpalpable. LUNGS: Clear at present. The patient is able to lie flat in bed. HEART: S1 and S2. ABDOMEN: Shows no rebound, no tenderness. EXTREMITIES: Trace edema. [employer]: Plantars are downgoing bilaterally. At this point, we will continue with the symptom control. There are no plans for chemotherapy, no plans for any active therapy whatsoever. Quirino Sotomayor MD
[2018-01-13] MEDS: HYDROmorphone 0.5 mg/0.5 ml ISec IVP PRN (21:02)
--- NOTE | 2018-01-13 21:23 | CP.PCM.PN ---
Subjective - Date & Time of Evaluation Date of Evaluation: 01/13/18 Time of Evaluation: 07:00 - Subjective Subjective: PGY1 Medicine Note for Dr. Soto Patient seen and examined at bedside this morning. Patient states that Objective - Vital Signs/Intake and Output Vital Signs (last 24 hours): Temp Pulse Resp BP Pulse Ox 98.1 F 89 20 92/56 L 96 01/13/18 15:25 01/13/18 15:25 01/13/18 15:25 01/13/18 15:25 01/13/18 15:25 Intake and Output: 01/13/18 01/14/18 18:59 06:59 Intake Total 400 300 Balance 400 300 - Medications Medications: Current Medications Docusate Sodium (Colace) 100 mg PO BID [facility] Last Admin: 01/13/18 18:11 Dose: 100 mg Enoxaparin Sodium (Lovenox) 40 mg SC DAILY [facility] Last Admin: 01/13/18 09:34 Dose: 40 mg Hydromorphone HCl (Dilaudid) 0.5 mg IVP Q6H PRN PRN Reason: Pain, moderate (4-7) Last Admin: 01/13/18 21:02 Dose: 0.5 mg Hydromorphone HCl (Dilaudid) 1 mg IVP Q4H PRN PRN Reason: Pain, severe (8-10) Last Admin: 01/13/18 14:50 Dose: 1 mg Insulin Human Regular (Novolin R) 0 unit SC [facility] PRN Reason: Protocol Last Admin: 01/13/18 16:39 Dose: Not Given Lactulose (Enulose) 20 gm PO Q8H [facility] Last Admin: 01/13/18 18:15 Dose: Not Given Pantoprazole Sodium (Protonix Ec Tab) 40 mg PO DAILY [facility] Last Admin: 01/13/18 09:34 Dose: 40 mg - Labs Labs: 01/13/18 06:58 01/13/18 06:58 PT 15.1 SECONDS (9.7-12.2) H 01/11/18 20:56 INR 1.3 01/11/18 20:56 APTT 30 SECONDS (21-34) 01/11/18 20:56 - Constitutional Appears: Non-toxic, No Acute Distress - Head Exam Head Exam: ATRAUMATIC, NORMOCEPHALIC - Eye Exam Eye Exam: EOMI - ENT Exam ENT Exam: Mucous Membranes Moist - Respiratory Exam Respiratory Exam: Clear to Ausculation Bilateral, NORMAL BREATHING PATTERN. absent: Accessory Muscle Use, Rales, Rhonchi, Wheezes, Respiratory Distress - Cardiovascular Exam Cardiovascular Exam: REGULAR RHYTHM, +S1, +S2 Additional comments: Left Salma Cath Access - GI/Abdominal Exam GI & Abdominal Exam: Soft, Normal Bowel Sounds. absent: Distended, Firm, Guarding, Rigid, Tenderness - Extremities Exam Extremities Exam: absent: Calf Tenderness, Pedal Edema - Neurological Exam Neurological Exam: Alert, Awake, Oriented x3 - Psychiatric Exam Psychiatric exam: Depressed - Skin Skin Exam: Dry, Warm. absent: Normal Color (yellowish appearance) Assessment and Plan - Assessment and Plan (Free Text) Plan: Jaundice Total Bilirubin ELEVATED 13.9 AST/ALT ELEVATED Alk Phos ELEVATED 547 GI consult, Dr Lr * Per Dr Soto's request - no aggressive intervention * MRCP - awaiting official read CT abd/pelvis from previous admission 12/13/17 showed hepatic lesions suspicious for metastasis Metastatic breast cancer Assessment and Plan: With metastases to brain, lungs, liver, spine (see previous imaging for full details) Hematology and Oncology Consult, Dr. 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 Diane Pain management: * Dilaudid 0.5mg IV Q6H prn ---> moderate pain * Dilaudid 1 mg IV Q6H prn ----> Severe pain MRI of spine done on 12/18/17 showed metastasis to thoracic spine involving all segments. Small epidural tumor extension posterior to T12 segment which compresses the anterolateral borders of the thecal sac nearly reaching but not significantly compressing the spinal cord. Tumor extending laterally at T11- T12. Status: Acute Constipation Assessment and Plan: Colace 100mg PO BID Lactulose 20g PO Q8H Patient with previous admission to [place] for constipation. If patient continues to be constipated, add on agents (Miralax 17g PO BID, Senokot 8.6mg PO QD) as this combination worked for her on previous admission here at [facility]. Status: Acute Diabetes mellitus Assessment and Plan: Accuchecks ACHS ISS ACHS - medium dose Status: Acute History of hypertension Assessment and Plan: Stable Reevaluate for need of inpatient medication based on vital signs Q4H Status: Acute Prophylactic measure Assessment and Plan: GI: Protonix 40mg PO daily DVT: Lovenox 30mg SC daily Status: Acute DISPOSITION: Palliative care was consulted. POLST signed. Patient is now DNR/ DNI. Need to discuss goals of care. Case discussed with Dr. Charles Perez Tommy PGY1
[2018-01-14] MEDS: HYDROmorphone 0.5 mg/0.5 ml ISec IVP PRN (03:20)
[2018-01-14 07:45] LABS: HEMOGLOBIN 10.9 g/dL (11.0-16.0); MEAN CORPUSCULAR HEMOGLOBIN 29.6 pg (27.0-31.0); MEAN CORPUSCULAR HGB CONC 34.4 g/dL (33.0-37.0); MEAN PLATELET VOLUME 8.9 fL (7.2-11.7); PLATELET COUNT 153 K/uL (130-400); RBC 3.67 Mil/uL (3.80-5.20); RED CELL DISTRIBUTION WIDTH 21.2 % (11.5-14.5); WHITE BLOOD COUNT 4.5 K/uL (4.8-10.8)
[2018-01-14] MEDS: (Novolin R) Insulin Human Regular 100 units/ml vial SC SCH ×4 (07:46→22:35)
[2018-01-14] MEDS: HYDROmorphone 1 mg/ml ISec IVP PRN ×3 (07:50→20:03)
[2018-01-14 07:56] LABS: ALT/SGPT 181 U/L (9-52); AST/SGOT 187 U/L (14-36); BLOOD UREA NITROGEN 8 mg/dL (7-17); CALCIUM 9.1 mg/dl (8.6-10.4); GFR AFRICAN-AMERICAN > 60; GFR NON-AFRICAN AMERICAN > 60
[2018-01-14 07:59] LABS: ALB/GLOB RATIO 0.8 (1.0-2.1); ALBUMIN 2.9 g/dL (3.5-5.0)
--- NOTE | 2018-01-14 08:45 | CP.PCM.PN ---
Subjective - Date & Time of Evaluation Date of Evaluation: 01/14/18 Time of Evaluation: 09:00 - Subjective Subjective: Medicine Note for Dr. Soto's Service Patient was seen and examined at bedside. Patient reports generalized pain. Denied fever, chills, headache, chest pain, SOB, n/v/d/c, or urinary symptoms. Objective - Vital Signs/Intake and Output Vital Signs (last 24 hours): Temp Pulse Resp BP Pulse Ox 97.5 F L 88 20 102/62 95 01/14/18 08:24 01/14/18 08:24 01/14/18 08:24 01/14/18 08:24 01/14/18 08:24 Intake and Output: 01/14/18 01/14/18 06:59 18:59 Intake Total 300 120 Balance 300 120 - Medications Medications: Current Medications Docusate Sodium (Colace) 100 mg PO BID [facility] Last Admin: 01/13/18 18:11 Dose: 100 mg Enoxaparin Sodium (Lovenox) 40 mg SC DAILY [facility] Last Admin: 01/13/18 09:34 Dose: 40 mg Fentanyl (Duragesic) 1 patch TD Q72H [facility] Hydromorphone HCl (Dilaudid) 1 mg IVP Q6H PRN PRN Reason: Pain, severe (8-10) Insulin Human Regular (Novolin R) 0 unit SC [facility] PRN Reason: Protocol Last Admin: 01/14/18 07:46 Dose: Not Given Lactulose (Enulose) 20 gm PO Q8H [facility] Last Admin: 01/14/18 03:03 Dose: Not Given Pantoprazole Sodium (Protonix Ec Tab) 40 mg PO DAILY [facility] Last Admin: 01/13/18 09:34 Dose: 40 mg - Labs Labs: 01/14/18 07:09 01/14/18 07:09 PT 15.1 SECONDS (9.7-12.2) H 01/11/18 20:56 INR 1.3 01/11/18 20:56 APTT 30 SECONDS (21-34) 01/11/18 20:56 - Additional Findings Additional findings: - Constitutional Appears: Non-toxic, No Acute Distress - Head Exam Head Exam: ATRAUMATIC, NORMOCEPHALIC - Eye Exam Eye Exam: EOMI - ENT Exam ENT Exam: Mucous Membranes Moist - Respiratory Exam Respiratory Exam: Clear to Ausculation Bilateral, NORMAL BREATHING PATTERN. absent: Accessory Muscle Use, Rales, Rhonchi, Wheezes, Respiratory Distress - Cardiovascular Exam Cardiovascular Exam: REGULAR RHYTHM, +S1, +S2 Additional comments: Left Salma Cath Access - GI/Abdominal Exam GI & Abdominal Exam: Soft, Normal Bowel Sounds. absent: Distended, Firm, Guarding, Rigid, Tenderness - Extremities Exam Extremities Exam: absent: Calf Tenderness, Pedal Edema - Neurological Exam Neurological Exam: Alert, Awake, Oriented x3 - Psychiatric Exam Psychiatric exam: Depressed - Skin Skin Exam: Dry, Warm. absent: Normal Color (yellowish appearance) Assessment and Plan - Assessment and Plan (Free Text) Plan: Jaundice Total Bilirubin ELEVATED 13.9 AST/ALT ELEVATED Alk Phos ELEVATED 547 GI consult, Dr Lr * Per Dr Soto's request - no aggressive intervention * MRCP - Extensive biliary obstruction is appreciated likely on the basis of salma hepatis hepatic mass with pancreatic duct also dilated as discussed above. No pancreatic head or ampullary mass is not excluded, though none is clearly delineated in this noncontrast MR examination, given prominence of the pancreatic duct. Overall pattern likely reflects metastasis throughout the liver including the salma hepatis region. Still, cholangiocarcinoma or [place] tumor not completely excluded. Right renal cysts identified. CT abd/pelvis from previous admission 12/13/17 showed hepatic lesions suspicious for metastasis PLAN FOR PERCUTANOUS DRAIN PLACEMENT BY IR - DR. CHRISTOPHER WEDNESDAY-01/17/18 - palliative measures Metastatic breast cancer Assessment and Plan: With metastases to brain, lungs, liver, spine (see previous imaging for full details) Hematology and Oncology Consult, Dr. 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 Diane Pain management: * Dilaudid 0.5mg IV Q6H prn ---> moderate pain * Dilaudid 1 mg IV Q6H prn ----> Severe pain MRI of spine done on 12/18/17 showed metastasis to thoracic spine involving all segments. Small epidural tumor extension posterior to T12 segment which compresses the anterolateral borders of the thecal sac nearly reaching but not significantly compressing the spinal cord. Tumor extending laterally at T11- T12. Status: Acute Constipation Assessment and Plan: Colace 100mg PO BID Lactulose 20g PO Q8H Patient with previous admission to [place] for constipation. If patient continues to be constipated, add on agents (Miralax 17g PO BID, Senokot 8.6mg PO QD) as this combination worked for her on previous admission here at [facility]. Status: Acute Diabetes mellitus Assessment and Plan: Accuchecks ACHS ISS ACHS - medium dose Status: Acute History of hypertension Assessment and Plan: Stable Reevaluate for need of inpatient medication based on vital signs Q4H Status: Acute Prophylactic measure Assessment and Plan: GI: Protonix 40mg PO daily DVT: Lovenox 30mg SC daily Status: Acute DISPOSITION: Palliative care was consulted. POLST signed. Patient is now DNR/ DNI. Need to discuss goals of care. PLAN FOR PERCUTANOUS DRAIN PLACEMENT BY IR - DR. CHRISTOPHER WEDNESDAY-01/17/18 - palliative measures DW Anayeli Leigh DO, PGY1
[2018-01-14] MEDS: Pantoprazole 40 mg EC Tab PO SCH (10:48)
[2018-01-14] MEDS: Enoxaparin 40 mg Syringe SC SCH (10:48)
[2018-01-14 11:44] LABS: EOS # 0.1 K/uL (0.0-0.7); LYMPH # 0.3 K/uL (1.0-4.3); MONO # 0.3 K/uL (0.0-0.8); NEUT # 3.7 K/uL (1.8-7.0)
[2018-01-14 11:45] LABS: BASO # 0.1 K/uL (0.0-0.2)
[2018-01-14 11:47] LABS: EOSINOPHIL 1 % (0-4); LYMPHOCYTE 11 % (20-40); MONOCYTE 6 % (0-10); NEUTROPHIL 82 % (50-75); TOTAL CELLS COUNTED 100
[2018-01-14 11:48] LABS: PLATELET ESTIMATE NORMAL (NORMAL)
[2018-01-14 11:50] LABS: ANISOCYTOSIS MODERATE; HYPOCHROMIC SLIGHT; POLYCHROMIC SLIGHT; TARGET CELLS SLIGHT
[2018-01-14 11:51] LABS: OVALOCYTES SLIGHT; POIKILOCYTOSIS SLIGHT
--- NOTE | 2018-01-14 12:04 | PCM.IRP ---
History of Present Illness - History of Present Illness History of Present Illness: IR consulted for perc. biliary drain. MRCP reviewed and case discussed with GI. Plan perc. drain on Wednesday morning. Objective - Vital Signs/Intake and Output Vital Signs (last 24 hours): Vital Signs - 24 hr 01/13/18 01/14/18 01/14/18 15:25 00:00 08:24 Temperature 98.1 F 98.5 F 97.5 F L Pulse Rate 89 100 H 88 Respiratory 20 20 20 Rate Blood Pressure 92/56 L 92/51 L 102/62 O2 Sat by Pulse 96 99 95 Oximetry Intake and Output (last 12 hours): Intake & Output 01/13/18 01/14/18 01/14/18 18:59 06:59 18:59 Intake Total 400 300 120 Balance 400 300 120 Intake: Oral 400 300 120 Other: # Voids Urine, Voided 2 2 1 # Bowel Movements 1 1 0 - Medications Medications: Current Medications Docusate Sodium (Colace) 100 mg PO BID [facility] Last Admin: 01/14/18 10:58 Dose: 100 mg Enoxaparin Sodium (Lovenox) 40 mg SC DAILY [facility] Last Admin: 01/14/18 10:48 Dose: 40 mg Fentanyl (Duragesic) 1 patch TD Q72H [facility] Last Admin: 01/14/18 10:47 Dose: 1 patch Hydromorphone HCl (Dilaudid) 1 mg IVP Q6H PRN PRN Reason: Pain, severe (8-10) Insulin Human Regular (Novolin R) 0 unit SC ACHS [facility] PRN Reason: Protocol Last Admin: 01/14/18 07:46 Dose: Not Given Lactulose (Enulose) 20 gm PO Q8H [facility] Last Admin: 01/14/18 10:47 Dose: 20 gm Pantoprazole Sodium (Protonix Ec Tab) 40 mg PO DAILY [facility] Last Admin: 01/14/18 10:48 Dose: 40 mg - Labs Labs (last 24 hours): Laboratory Results - last 24 hr 01/13/18 01/13/18 01/14/18 16:36 21:22 07:09 WBC 4.5 L RBC 3.67 L Hgb 10.9 L Hct 31.5 L MCV 86.0 MCH 29.6 MCHC 34.4 RDW 21.2 H Plt Count 153 MPV 8.9 Neut % (Auto) 82.0 H Lymph % (Auto) 9.0 L [place] % (Auto) 7.0 Eos % (Auto) 1.0 Baso % (Auto) 1.0 Neut # (Auto) 3.7 Lymph # (Auto) 0.3 L [place] # (Auto) 0.3 Eos # (Auto) 0.1 Baso # (Auto) 0.1 Neutrophils % (Manual) 82 H Lymphocytes % (Manual) 11 L Monocytes % (Manual) 6 Eosinophils % (Manual) 1 Platelet Estimate Normal Polychromasia Slight Hypochromasia (manual) Slight Poikilocytosis (manual Slight Anisocytosis (manual) Moderate Target Cells Slight Ovalocytes Slight Sodium Potassium Chloride Carbon Dioxide Anion Gap BUN Creatinine Est GFR ( Amer) Est GFR (Non-Af Amer) POC Glucose (mg/dL) 130 H 189 H Random Glucose Calcium Total Bilirubin AST ALT Alkaline Phosphatase Total Protein Albumin Globulin Albumin/Globulin Ratio 01/14/18 01/14/18 07:09 07:27 WBC RBC Hgb Hct MCV MCH MCHC RDW Plt Count MPV Neut % (Auto) Lymph % (Auto) [place] % (Auto) Eos % (Auto) Baso % (Auto) Neut # (Auto) Lymph # (Auto) [place] # (Auto) Eos # (Auto) Baso # (Auto) Neutrophils % (Manual) Lymphocytes % (Manual) Monocytes % (Manual) Eosinophils % (Manual) Platelet Estimate Polychromasia Hypochromasia (manual) Poikilocytosis (manual Anisocytosis (manual) Target Cells Ovalocytes Sodium 139 Potassium 4.0 Chloride 101 Carbon Dioxide 26 Anion Gap 17 BUN 8 Creatinine 0.5 L Est GFR ( Amer) > 60 Est GFR (Non-Af Amer) > 60 POC Glucose (mg/dL) 99 Random Glucose 103 Calcium 9.1 Total Bilirubin 15.8 H AST 187 H ALT 181 H Alkaline Phosphatase 616 H Total Protein 6.4 Albumin 2.9 L Globulin 3.5 Albumin/Globulin Ratio 0.8 L
--- NOTE | 2018-01-14 13:24 | CP.PCM.PN ---
Subjective - Date & Time of Evaluation Date of Evaluation: 01/14/18 Time of Evaluation: 13:20 - Subjective Subjective: CC: f/u jaundice + Pain. Medicated with Dilaudid Plans being made for IR placed percutaneous biliary drain to relieve malignant proximal biliary obstruction. Discussed extensively with patient's son and Dr Avendaño in conference. Family is unsure LFTs about the same Objective - Vital Signs/Intake and Output Vital Signs (last 24 hours): Temp Pulse Resp BP Pulse Ox 97.5 F L 88 20 102/62 95 01/14/18 08:24 01/14/18 08:24 01/14/18 08:24 01/14/18 08:24 01/14/18 08:24 Intake and Output: 01/14/18 01/14/18 06:59 18:59 Intake Total 300 120 Balance 300 120 - Medications Medications: Current Medications Docusate Sodium (Colace) 100 mg PO BID [facility] Last Admin: 01/14/18 10:58 Dose: 100 mg Enoxaparin Sodium (Lovenox) 40 mg SC DAILY [facility] Last Admin: 01/14/18 10:48 Dose: 40 mg Fentanyl (Duragesic) 1 patch TD Q72H [facility] Last Admin: 01/14/18 10:47 Dose: 1 patch Hydromorphone HCl (Dilaudid) 1 mg IVP Q6H PRN PRN Reason: Pain, severe (8-10) Insulin Human Regular (Novolin R) 0 unit SC ACHS [facility] PRN Reason: Protocol Last Admin: 01/14/18 12:54 Dose: Not Given Lactulose (Enulose) 20 gm PO Q8H [facility] Last Admin: 01/14/18 10:47 Dose: 20 gm Pantoprazole Sodium (Protonix Ec Tab) 40 mg PO DAILY [facility] Last Admin: 01/14/18 10:48 Dose: 40 mg - Labs Labs: 01/14/18 07:09 01/14/18 07:09 PT 15.1 SECONDS (9.7-12.2) H 01/11/18 20:56 INR 1.3 01/11/18 20:56 APTT 30 SECONDS (21-34) 01/11/18 20:56 - Constitutional Appears: Chronically Ill - Head Exam Head Exam: NORMOCEPHALIC - Eye Exam Eye Exam: Scleral icterus - Respiratory Exam Respiratory Exam: NORMAL BREATHING PATTERN - Cardiovascular Exam Cardiovascular Exam: REGULAR RHYTHM - GI/Abdominal Exam GI & Abdominal Exam: Soft. absent: Tenderness Assessment and Plan (1) Jaundice Assessment & Plan: Secondary to malignancy in liver and biliary tree Rec: options: hospice vs. percutaneous biliary stent. Both measures would be for palliative purposes. Patient and family to decide. Status: Acute (2) Metastatic breast cancer Assessment & Plan: Managed by Oncologist Status: Chronic
[2018-01-15] MEDS: HYDROmorphone 1 mg/ml ISec IVP PRN ×2 (07:58→14:37)
[2018-01-15] MEDS: (Novolin R) Insulin Human Regular 100 units/ml vial SC SCH ×4 (07:59→22:10)
--- NOTE | 2018-01-15 08:11 | CP.PCM.PN ---
Subjective - Date & Time of Evaluation Date of Evaluation: 01/15/18 Time of Evaluation: 07:05 - Subjective Subjective: Medicine Note for Dr. Soto's Service Patient was seen and examined at bedside this AM. Patient reports generalized pain and is asking for better pain control. Her last BM was yesterday, denies constipation. Otherwise denies f/c, headache, chest pain, SOB, n/v/d/c, urinary symptoms, or any additional acute complaints. Objective - Vital Signs/Intake and Output Vital Signs (last 24 hours): Temp Pulse Resp BP Pulse Ox 98.6 F 94 H 20 109/54 L 97 01/15/18 00:00 01/15/18 00:00 01/15/18 00:00 01/15/18 00:00 01/15/18 00:00 Intake and Output: 01/15/18 01/15/18 06:59 18:59 Intake Total 240 180 Balance 240 180 - Medications Medications: Current Medications Docusate Sodium (Colace) 100 mg PO BID [facility] Last Admin: 01/14/18 17:38 Dose: Not Given Enoxaparin Sodium (Lovenox) 40 mg SC DAILY [facility] Last Admin: 01/14/18 10:48 Dose: 40 mg Fentanyl (Duragesic) 1 patch TD Q72H [facility] Last Admin: 01/14/18 10:47 Dose: 1 patch Hydromorphone HCl (Dilaudid) 1 mg IVP Q6H PRN PRN Reason: Pain, severe (8-10) Last Admin: 01/15/18 07:58 Dose: 1 mg Insulin Human Regular (Novolin R) 0 unit SC [facility] PRN Reason: Protocol Last Admin: 01/15/18 07:59 Dose: 2 unit Lactulose (Enulose) 20 gm PO Q8H [facility] Last Admin: 01/15/18 01:42 Dose: Not Given Pantoprazole Sodium (Protonix Ec Tab) 40 mg PO DAILY [facility] Last Admin: 01/14/18 10:48 Dose: 40 mg - Labs Labs: 01/14/18 07:09 01/14/18 07:09 PT 15.1 SECONDS (9.7-12.2) H 01/11/18 20:56 INR 1.3 01/11/18 20:56 APTT 30 SECONDS (21-34) 01/11/18 20:56 - Additional Findings Additional findings: - Constitutional Appears: Non-toxic, No Acute Distress - Head Exam Head Exam: ATRAUMATIC, NORMOCEPHALIC - Eye Exam Eye Exam: EOMI - ENT Exam ENT Exam: Mucous Membranes Moist - Respiratory Exam Respiratory Exam: Clear to Ausculation Bilateral, NORMAL BREATHING PATTERN. absent: Accessory Muscle Use, Rales, Rhonchi, Wheezes, Respiratory Distress - Cardiovascular Exam Cardiovascular Exam: REGULAR RHYTHM, +S1, +S2 Additional comments: Left Salma Cath Access - GI/Abdominal Exam GI & Abdominal Exam: Soft, Normal Bowel Sounds. absent: Distended, Firm, Guarding, Rigid, Tenderness - Extremities Exam Extremities Exam: absent: Calf Tenderness, Pedal Edema - Neurological Exam Neurological Exam: Alert, Awake, Oriented x3 - Psychiatric Exam Psychiatric exam: Depressed - Skin Skin Exam: Dry, Warm. absent: Normal Color (jaundiced) Assessment and Plan - Assessment and Plan (Free Text) Assessment: Jaundice 01/15: AST / ALT improving Total Bilirubin ELEVATED 13.9 AST/ALT ELEVATED Alk Phos ELEVATED 547 GI consult, Dr Lr * Per Dr Soto's request - no aggressive intervention * MRCP - Extensive biliary obstruction is appreciated likely on the basis of salma hepatis hepatic mass with pancreatic duct also dilated as discussed above. No pancreatic head or ampullary mass is not excluded, though none is clearly delineated in this noncontrast MR examination, given prominence of the pancreatic duct. Overall pattern likely reflects metastasis throughout the liver including the salma hepatis region. Still, cholangiocarcinoma or [place] tumor not completely excluded. Right renal cysts identified. CT abd/pelvis from previous admission 12/13/17 showed hepatic lesions suspicious for metastasis PLAN FOR PERCUTANOUS DRAIN PLACEMENT BY VIRG[facility] - DR. CHRISTOPHER WEDNESDAY-01/17/18 - palliative measures Metastatic breast cancer Assessment and Plan: With metastases to brain, lungs, liver, spine (see previous imaging for full details) Hematology and Oncology Consult, Dr. 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 Diane Pain management: * Dilaudid 0.5mg IV Q6H prn ---> moderate pain * Dilaudid 1 mg IV Q6H prn ----> Severe pain MRI of spine done on 12/18/17 showed metastasis to thoracic spine involving all segments. Small epidural tumor extension posterior to T12 segment which compresses the anterolateral borders of the thecal sac nearly reaching but not significantly compressing the spinal cord. Tumor extending laterally at T11- T12. Status: Acute Constipation Assessment and Plan: 01/15: Resolved, continue current meds Colace 100mg PO BID Lactulose 20g PO Q8H Patient with previous admission to [facility] for constipation. If patient continues to be constipated, add on agents (Miralax 17g PO BID, Senokot 8.6mg PO QD) as this combination worked for her on previous admission here at [facility]. Status: Acute Diabetes mellitus Assessment and Plan: Accuchecks ACHS ISS ACHS - medium dose Status: Acute History of hypertension Assessment and Plan: Stable Reevaluate for need of inpatient medication based on vital signs Q4H Status: Acute Prophylactic measure Assessment and Plan: GI: Protonix 40mg PO daily DVT: Lovenox 30mg SC daily Status: Acute Electrolyte Imbalance 01/15: hypokalemia, K 3.3 - KCl 20meq x3 DISPOSITION: Palliative care was consulted. POLST signed. Patient is now DNR/ DNI. Need to discuss goals of care. PLAN FOR PERCUTANOUS DRAIN PLACEMENT BY VIRG[facility] - DR. CHRISTOPHER WEDNESDAY-01/17/18 - palliative measures Case discussed with attending. All medical management as per Dr. Soto.
[2018-01-15 08:37] LABS: MEAN CELL VOLUME 86.5 fL (81.0-99.0); MEAN CORPUSCULAR HEMOGLOBIN 30.1 pg (27.0-31.0); MEAN CORPUSCULAR HGB CONC 34.8 g/dL (33.0-37.0); MEAN PLATELET VOLUME 10.5 fL (7.2-11.7); RBC 3.66 Mil/uL (3.80-5.20); RED CELL DISTRIBUTION WIDTH 21.7 % (11.5-14.5); WHITE BLOOD COUNT 4.1 K/uL (4.8-10.8)
[2018-01-15 08:46] LABS: ALT/SGPT 181 U/L (9-52); AST/SGOT 162 U/L (14-36); BLOOD UREA NITROGEN 9 mg/dL (7-17); CALCIUM 9.7 mg/dl (8.6-10.4); GFR AFRICAN-AMERICAN > 60; GFR NON-AFRICAN AMERICAN > 60
[2018-01-15 08:49] LABS: ALB/GLOB RATIO 0.9 (1.0-2.1); ALBUMIN 3.1 g/dL (3.5-5.0)
[2018-01-15] MEDS ORDERED: Potassium Chloride 20 mEq/15 ml LIQ UD PO SCH (09:45)
[2018-01-15] MEDS ORDERED: Magnesium Sulfate 1 gm in D5W 1 GM/100 ML BAG IVPB ONE (09:45)
[2018-01-15 09:52] LABS: LYMPH # 0.5 K/uL (1.0-4.3); MONO # 0.4 K/uL (0.0-0.8); NEUT # 3.1 K/uL (1.8-7.0)
[2018-01-15 09:53] LABS: EOS # 0.1 K/uL (0.0-0.7)
[2018-01-15] MEDS: Enoxaparin 40 mg Syringe SC SCH (10:45)
[2018-01-15] MEDS: Pantoprazole 40 mg EC Tab PO SCH (10:46)
[2018-01-15] MEDS: Potassium Chloride 20 mEq/15 ml LIQ UD PO SCH ×2 (10:54→11:28)
[2018-01-15] MEDS ORDERED: Potassium Chloride 20 mEq ER Tab PO ONE (11:42)
--- NOTE | 2018-01-15 12:23 | CP.PCM.PN ---
Subjective - Date & Time of Evaluation Date of Evaluation: 01/15/18 Time of Evaluation: 12:19 - Subjective Subjective: COVERING DR LUNA/DANIEL C/O abdominal pain. No N/V IR for PTC currently scheduled for wednesday. Objective - Vital Signs/Intake and Output Vital Signs (last 24 hours): Temp Pulse Resp BP Pulse Ox 98.7 F 101 H 20 107/69 96 01/15/18 08:00 01/15/18 08:00 01/15/18 08:00 01/15/18 08:00 01/15/18 08:00 Intake and Output: 01/15/18 01/15/18 06:59 18:59 Intake Total 240 180 Balance 240 180 - Medications Medications: Current Medications Docusate Sodium (Colace) 100 mg PO BID [facility] Last Admin: 01/15/18 10:46 Dose: 100 mg Enoxaparin Sodium (Lovenox) 40 mg SC DAILY [facility] Last Admin: 01/15/18 10:45 Dose: 40 mg Fentanyl (Duragesic) 1 patch TD Q72H [facility] Last Admin: 01/14/18 10:47 Dose: 1 patch Hydromorphone HCl (Dilaudid) 1 mg IVP Q6H PRN PRN Reason: Pain, severe (8-10) Last Admin: 01/15/18 07:58 Dose: 1 mg Insulin Human Regular (Novolin R) 0 unit SC ACHS [facility] PRN Reason: Protocol Last Admin: 01/15/18 12:15 Dose: 3 unit Lactulose (Enulose) 20 gm PO Q8H [facility] Last Admin: 01/15/18 11:28 Dose: Not Given Pantoprazole Sodium (Protonix Ec Tab) 40 mg PO DAILY [facility] Last Admin: 01/15/18 10:46 Dose: 40 mg - Labs Labs: 01/15/18 08:16 01/15/18 08:16 PT 15.1 SECONDS (9.7-12.2) H 01/11/18 20:56 INR 1.3 01/11/18 20:56 APTT 30 SECONDS (21-34) 01/11/18 20:56 - Constitutional Appears: No Acute Distress - Eye Exam Eye Exam: Scleral icterus - Respiratory Exam Respiratory Exam: NORMAL BREATHING PATTERN - Cardiovascular Exam Cardiovascular Exam: REGULAR RHYTHM - GI/Abdominal Exam GI & Abdominal Exam: Soft, Tenderness, Normal Bowel Sounds. absent: Mass, Rebound Assessment and Plan (1) Obstructive jaundice due to malignant neoplasm Assessment & Plan: Intrahepatic obstruction likely due to metastatic disease. Family appears to be agreeable to PTC by IR for palliative decompression. ERCP for stent by Dr Oliveros was deemed to be lesser option. Hospice also to be considered. Continue palliative care awaiting stent/drainage. Status: Acute (2) Abnormal liver enzymes Assessment & Plan: Due to above. Status: Acute (3) Metastatic breast cancer Status: Chronic
[2018-01-15] MEDS ORDERED: HYDROmorphone 1 mg/ml ISec IVP STA (20:14)
[2018-01-16] MEDS: HYDROmorphone 1 mg/ml ISec IVP PRN ×3 (05:40→17:13)
[2018-01-16 07:19] LABS: HEMOGLOBIN 10.4 g/dL (11.0-16.0); MEAN CELL VOLUME 87.3 fL (81.0-99.0); MEAN CORPUSCULAR HEMOGLOBIN 30.5 pg (27.0-31.0); MEAN CORPUSCULAR HGB CONC 34.9 g/dL (33.0-37.0); MEAN PLATELET VOLUME 9.7 fL (7.2-11.7); RBC 3.42 Mil/uL (3.80-5.20); RED CELL DISTRIBUTION WIDTH 22.4 % (11.5-14.5); WHITE BLOOD COUNT 7.8 K/uL (4.8-10.8)
--- NOTE | 2018-01-16 07:34 | CP.PCM.PN ---
Subjective - Date & Time of Evaluation Date of Evaluation: 01/16/18 Time of Evaluation: 07:27 - Subjective Subjective: PGY1 Medicine Note for Dr. Soto Patient seen and examined at bedside this morning. Patient was struggling with generalized pain throughout the night. Her pain regiment was increased. She states the changes have helped and she is feeling much more comfortable at this time. Denies fevers, chills, nausea, vomiting, shortness of breath, chest pain or headaches. Objective - Vital Signs/Intake and Output Vital Signs (last 24 hours): Temp Pulse Resp BP Pulse Ox 99.4 F 101 H 20 131/69 96 01/16/18 00:00 01/16/18 00:00 01/16/18 00:00 01/16/18 00:00 01/16/18 00:00 Intake and Output: 01/16/18 01/16/18 06:59 18:59 Intake Total Balance - Medications Medications: Current Medications Docusate Sodium (Colace) 100 mg PO BID [facility] Last Admin: 01/15/18 17:23 Dose: 100 mg Enoxaparin Sodium (Lovenox) 40 mg SC DAILY [facility] Last Admin: 01/15/18 10:45 Dose: 40 mg Fentanyl (Duragesic) 1 patch TD Q72H [facility] Last Admin: 01/15/18 20:41 Dose: 1 patch Hydromorphone HCl (Dilaudid) 1 mg IVP Q4H PRN PRN Reason: Pain, severe (8-10) Last Admin: 01/16/18 05:40 Dose: 1 mg Insulin Human Regular (Novolin R) 0 unit SC ACHS [facility] PRN Reason: Protocol Last Admin: 01/15/18 22:10 Dose: Not Given Lactulose (Enulose) 20 gm PO Q8H [facility] Last Admin: 01/16/18 01:50 Dose: Not Given Pantoprazole Sodium (Protonix Ec Tab) 40 mg PO DAILY [facility] Last Admin: 01/15/18 10:46 Dose: 40 mg - Labs Labs: 01/15/18 08:16 01/15/18 08:16 PT 15.1 SECONDS (9.7-12.2) H 01/11/18 20:56 INR 1.3 01/11/18 20:56 APTT 30 SECONDS (21-34) 01/11/18 20:56 - Constitutional Appears: No Acute Distress, Other (appears yellow) - Head Exam Head Exam: NORMOCEPHALIC Additional comments: radiation burn on ears - Eye Exam Eye Exam: EOMI, Normal appearance - ENT Exam ENT Exam: Mucous Membranes Moist - Respiratory Exam Respiratory Exam: Clear to Ausculation Bilateral, NORMAL BREATHING PATTERN. absent: Accessory Muscle Use, Rales, Rhonchi, Wheezes, Respiratory Distress - Cardiovascular Exam Cardiovascular Exam: REGULAR RHYTHM, +S1, +S2 Additional comments: Left Beth Cath Access - GI/Abdominal Exam GI & Abdominal Exam: Soft, Normal Bowel Sounds. absent: Distended, Firm, Guarding, Rigid, Tenderness - Extremities Exam Extremities Exam: absent: Calf Tenderness, Pedal Edema - Neurological Exam Neurological Exam: Alert, Awake - Psychiatric Exam Psychiatric exam: Normal Affect, Normal Mood - Skin Skin Exam: Dry, Warm. absent: Normal Color (yellow appearance ) Assessment and Plan - Assessment and Plan (Free Text) Plan: Jaundice Total Bilirubin ELEVATED 13.9 AST/ALT ELEVATED Alk Phos ELEVATED 547 GI consult, Dr Lr * Per Dr Soto's request - no aggressive intervention * MRCP - Extensive biliary obstruction is appreciated likely on the basis of beth hepatis hepatic mass with pancreatic duct also dilated as discussed above. No pancreatic head or ampullary mass is not excluded, though none is clearly delineated in this noncontrast MR examination, given prominence of the pancreatic duct. Overall pattern likely reflects metastasis throughout the liver including the beth hepatis region. Still, cholangiocarcinoma or [place] tumor not completely excluded. Right renal cysts identified. CT abd/pelvis from previous admission 12/13/17 showed hepatic lesions suspicious for metastasis PLAN FOR PERCUTANOUS DRAIN PLACEMENT BY VIRGIL - DR. CHRISTOPHER WEDNESDAY-01/17/18 - palliative measures Metastatic breast cancer Assessment and Plan: With metastases to brain, lungs, liver, spine (see previous imaging for full details) Hematology and Oncology Consult, Dr. 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 Diane Pain management: * Dilaudid 1 mg IV Q6H prn ----> increased to Dilaudid 1 mg IV Q4H prn * Added fentanyl 50mcg/hr 1 patch Q72H MRI of spine done on 12/18/17 showed metastasis to thoracic spine involving all segments. Small epidural tumor extension posterior to T12 segment which compresses the anterolateral borders of the thecal sac nearly reaching but not significantly compressing the spinal cord. Tumor extending laterally at T11- T12. Status: Acute Constipation Assessment and Plan: Colace 100mg PO BID Lactulose 20g PO Q8H Patient with previous admission to [place] for constipation. If patient continues to be constipated, add on agents (Miralax 17g PO BID, Senokot 8.6mg PO QD) as this combination worked for her on previous admission here at [facility]. Status: Acute Diabetes mellitus Assessment and Plan: Accuchecks ACHS ISS ACHS - medium dose Status: Acute History of hypertension Assessment and Plan: Stable Reevaluate for need of inpatient medication based on vital signs Q4H Status: Acute Prophylactic measure Assessment and Plan: GI: Protonix 40mg PO daily DVT: Lovenox 30mg SC daily Status: Acute DISPOSITION: Palliative care was consulted. POLST signed. Patient is now DNR/ DNI. Need to discuss goals of care. PLAN FOR PERCUTANOUS DRAIN PLACEMENT BY IR - DR. CHRISTOPHER WEDNESDAY-01/17/18 - palliative measures Will discuss with Dr. Charles Perez Tommy PGY1
[2018-01-16 07:56] LABS: ALB/GLOB RATIO 0.8 (1.0-2.1); ALBUMIN 2.8 g/dL (3.5-5.0); ALT/SGPT 171 U/L (9-52); AST/SGOT 143 U/L (14-36); BLOOD UREA NITROGEN 12 mg/dL (7-17); CALCIUM 9.1 mg/dl (8.6-10.4); GFR AFRICAN-AMERICAN > 60; GFR NON-AFRICAN AMERICAN > 60
[2018-01-16] MEDS: (Novolin R) Insulin Human Regular 100 units/ml vial SC SCH ×4 (08:40→21:40)
[2018-01-16 09:27] LABS: LYMPH # 0.9 K/uL (1.0-4.3); MONO # 0.3 K/uL (0.0-0.8); NEUT # 6.6 K/uL (1.8-7.0)
[2018-01-16] MEDS: Enoxaparin 40 mg Syringe SC SCH (09:41)
[2018-01-16] MEDS: Pantoprazole 40 mg EC Tab PO SCH (09:41)
--- NOTE | 2018-01-16 10:58 | CP.PCM.PN ---
Subjective - Date & Time of Evaluation Date of Evaluation: 01/16/18 Time of Evaluation: 10:57 - Subjective Subjective: COVERING DR LUNA/DANIEL Pain is better per patient. Resting in bed Objective - Vital Signs/Intake and Output Vital Signs (last 24 hours): Temp Pulse Resp BP Pulse Ox 99.4 F 101 H 20 131/69 96 01/16/18 00:00 01/16/18 00:00 01/16/18 00:00 01/16/18 00:00 01/16/18 00:00 Intake and Output: 01/16/18 01/16/18 06:59 18:59 Intake Total Balance - Medications Medications: Current Medications Docusate Sodium (Colace) 100 mg PO BID [facility] Last Admin: 01/16/18 09:41 Dose: 100 mg Enoxaparin Sodium (Lovenox) 40 mg SC DAILY [facility] Last Admin: 01/16/18 09:41 Dose: 40 mg Fentanyl (Duragesic) 1 patch TD Q72H [facility] Last Admin: 01/15/18 20:41 Dose: 1 patch Hydromorphone HCl (Dilaudid) 1 mg IVP Q4H PRN PRN Reason: Pain, severe (8-10) Last Admin: 01/16/18 05:40 Dose: 1 mg Insulin Human Regular (Novolin R) 0 unit SC ACHS [facility] PRN Reason: Protocol Last Admin: 01/16/18 08:40 Dose: 2 unit Lactulose (Enulose) 20 gm PO Q8H [facility] Last Admin: 01/16/18 01:50 Dose: Not Given Pantoprazole Sodium (Protonix Ec Tab) 40 mg PO DAILY [facility] Last Admin: 01/16/18 09:41 Dose: 40 mg - Labs Labs: 01/16/18 07:04 01/16/18 07:04 PT 15.1 SECONDS (9.7-12.2) H 01/11/18 20:56 INR 1.3 01/11/18 20:56 APTT 30 SECONDS (21-34) 01/11/18 20:56 - Constitutional Appears: Cachectic - Eye Exam Eye Exam: EOMI, Scleral icterus - Respiratory Exam Respiratory Exam: NORMAL BREATHING PATTERN - Cardiovascular Exam Cardiovascular Exam: REGULAR RHYTHM - GI/Abdominal Exam GI & Abdominal Exam: Soft, Normal Bowel Sounds. absent: Tenderness, Mass - Extremities Exam Extremities Exam: Normal Inspection Assessment and Plan (1) Obstructive jaundice due to malignant neoplasm Assessment & Plan: Plan for IR intervention for drainage tube vs stent in am. Status: Acute (2) Abnormal liver enzymes Assessment & Plan: as above Status: Acute (3) Metastatic breast cancer Status: Chronic
[2018-01-17] MEDS: HYDROmorphone 1 mg/ml ISec IVP PRN ×2 (01:17→09:48)
--- NOTE | 2018-01-17 07:25 | CP.PCM.PN ---
Subjective - Date & Time of Evaluation Date of Evaluation: 01/17/18 Time of Evaluation: 07:25 - Subjective Subjective: Medicine progress note for Dr. Soto's service Patient was seen and examined at bedside. Patient reports she is in a lot of pain all over her body. Patient denies shortness of breath, nausea, vomiting, fevers, dysuria, and constipation. Objective - Vital Signs/Intake and Output Vital Signs (last 24 hours): Temp Pulse Resp BP Pulse Ox 98.4 F 95 H 20 109/58 L 96 01/17/18 00:00 01/17/18 00:00 01/17/18 00:00 01/17/18 00:00 01/17/18 00:00 Intake and Output: 01/17/18 01/17/18 06:59 18:59 Intake Total 120 Balance 120 - Medications Medications: Current Medications Docusate Sodium (Colace) 100 mg PO BID [facility] Last Admin: 01/16/18 17:14 Dose: 100 mg Enoxaparin Sodium (Lovenox) 40 mg SC DAILY [facility] Last Admin: 01/16/18 09:41 Dose: 40 mg Fentanyl (Duragesic) 1 patch TD Q72H [facility] Last Admin: 01/15/18 20:41 Dose: 1 patch Hydromorphone HCl (Dilaudid) 1 mg IVP Q4H PRN PRN Reason: Pain, severe (8-10) Last Admin: 01/17/18 01:17 Dose: 1 mg Insulin Human Regular (Novolin R) 0 unit SC ACHS [facility] PRN Reason: Protocol Last Admin: 01/16/18 21:40 Dose: Not Given Lactulose (Enulose) 20 gm PO Q8H [facility] Last Admin: 01/17/18 01:19 Dose: Not Given Pantoprazole Sodium (Protonix Ec Tab) 40 mg PO DAILY [facility] Last Admin: 01/16/18 09:41 Dose: 40 mg - Labs Labs: 01/16/18 07:04 01/16/18 07:04 PT 15.1 SECONDS (9.7-12.2) H 01/11/18 20:56 INR 1.3 01/11/18 20:56 APTT 30 SECONDS (21-34) 01/11/18 20:56 - Constitutional Appears: Chronically Ill - Head Exam Head Exam: ATRAUMATIC - Eye Exam Eye Exam: EOMI, Scleral icterus - ENT Exam ENT Exam: Mucous Membranes Moist - Respiratory Exam Respiratory Exam: Decreased Breath Sounds, NORMAL BREATHING PATTERN. absent: Rales, Rhonchi, Wheezes, Respiratory Distress - Cardiovascular Exam Cardiovascular Exam: REGULAR RHYTHM, +S1, +S2 - GI/Abdominal Exam GI & Abdominal Exam: Soft, Tenderness (diffuse), Normal Bowel Sounds. absent: Distended - Extremities Exam Extremities Exam: Tenderness (diffuse). absent: Pedal Edema - Neurological Exam Neurological Exam: Alert, Awake - Skin Skin Exam: Dry, Intact, Warm. absent: Normal Color (jaundiced) Assessment and Plan - Assessment and Plan (Free Text) Plan: Jaundice Total Bilirubin ELEVATED 13.9 AST/ALT ELEVATED Alk Phos ELEVATED 547 GI consult, Dr Lr * Per Dr Soto's request - no aggressive intervention * MRCP - Extensive biliary obstruction is appreciated likely on the basis of beth hepatis hepatic mass with pancreatic duct also dilated as discussed above. No pancreatic head or ampullary mass is not excluded, though none is clearly delineated in this noncontrast MR examination, given prominence of the pancreatic duct. Overall pattern likely reflects metastasis throughout the liver including the beth hepatis region. Still, cholangiocarcinoma or [place] tumor not completely excluded. Right renal cysts identified. CT abd/pelvis from previous admission 12/13/17 showed hepatic lesions suspicious for metastasis No drain placement by Dr. Avendaño- Palliative measures Metastatic breast cancer Assessment and Plan: With metastases to brain, lungs, liver, spine (see previous imaging for full details) Hematology and Oncology Consult, Dr. 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 Diane Pain management: * Dilaudid 1 mg IV Q6H prn ----> increased to Dilaudid 2 mg IV Q4H prn on * Added fentanyl 50mcg/hr 1 patch Q72H MRI of spine done on 12/18/17 showed metastasis to thoracic spine involving all segments. Small epidural tumor extension posterior to T12 segment which compresses the anterolateral borders of the thecal sac nearly reaching but not significantly compressing the spinal cord. Tumor extending laterally at T11- T12. Constipation Assessment and Plan: Colace 100mg PO BID Lactulose 20g PO Q8H Patient with previous admission to [facility] for constipation. If patient continues to be constipated, add on agents (Miralax 17g PO BID, Senokot 8.6mg PO QD) as this combination worked for her on previous admission here at [facility]. Diabetes mellitus Assessment and Plan: Accuchecks ACHS ISS ACHS - medium dose Continue to monitor History of hypertension Assessment and Plan: Stable Reevaluate for need of inpatient medication based on vital signs Q4H Prophylactic measure Assessment and Plan: GI: Protonix 40mg PO daily DVT: Lovenox 30mg SC daily DISPOSITION: Palliative care was consulted. POLST signed. Patient is now DNR/ DNI. Discussed Hospice at home with family and case workers- planning discharge with hospice home care. Continue pain management. All medical management per Dr. Soto.
[2018-01-17 07:41] LABS: HEMOGLOBIN 10.5 g/dL (11.0-16.0); MEAN CELL VOLUME 86.9 fL (81.0-99.0); MEAN CORPUSCULAR HEMOGLOBIN 30.5 pg (27.0-31.0); MEAN CORPUSCULAR HGB CONC 35.1 g/dL (33.0-37.0); MEAN PLATELET VOLUME 10.2 fL (7.2-11.7); PLATELET COUNT 211 K/uL (130-400); RBC 3.43 Mil/uL (3.80-5.20); RED CELL DISTRIBUTION WIDTH 22.9 % (11.5-14.5); WHITE BLOOD COUNT 7.4 K/uL (4.8-10.8)
[2018-01-17 08:06] LABS: ALB/GLOB RATIO 0.8 (1.0-2.1); ALBUMIN 2.9 g/dL (3.5-5.0); ALT/SGPT 171 U/L (9-52); AST/SGOT 161 U/L (14-36); BLOOD UREA NITROGEN 14 mg/dL (7-17); CALCIUM 9.2 mg/dl (8.6-10.4); GFR AFRICAN-AMERICAN > 60; GFR NON-AFRICAN AMERICAN > 60
[2018-01-17] MEDS: (Novolin R) Insulin Human Regular 100 units/ml vial SC SCH ×4 (08:12→21:46)
[2018-01-17] MEDS: Pantoprazole 40 mg EC Tab PO SCH (09:52)
[2018-01-17 10:17] LABS: LYMPH # 0.4 K/uL (1.0-4.3); MONO # 0.3 K/uL (0.0-0.8); NEUT # 6.7 K/uL (1.8-7.0)
[2018-01-17 10:21] LABS: ANISOCYTOSIS SLIGHT; BANDS 1 % (0-2); HYPOCHROMIC SLIGHT; LYMPHOCYTE 5 % (20-40); MICROCYTOSIS SLIGHT; MONOCYTE 1 % (0-10); NEUTROPHIL 93 % (50-75); PLATELET ESTIMATE NORMAL (NORMAL); POIKILOCYTOSIS SLIGHT; TARGET CELLS SLIGHT; TOTAL CELLS COUNTED 100
[2018-01-17 10:22] LABS: TEARDROP CELLS SLIGHT
[2018-01-17 10:23] LABS: OVALOCYTES SLIGHT
--- NOTE | 2018-01-17 16:40 | CP.PCM.PN ---
Subjective - Date & Time of Evaluation Date of Evaluation: 01/17/18 Time of Evaluation: 16:38 - Subjective Subjective: CC: follow up jaundice Little clinical change Plans for Hospice noted Will sign off Objective - Vital Signs/Intake and Output Vital Signs (last 24 hours): Temp Pulse Resp BP Pulse Ox 98.6 F 102 H 20 107/66 96 01/17/18 07:29 01/17/18 07:29 01/17/18 07:29 01/17/18 07:29 01/17/18 07:29 Intake and Output: 01/17/18 01/17/18 06:59 18:59 Intake Total 120 Balance 120 - Medications Medications: Current Medications Docusate Sodium (Colace) 100 mg PO BID [facility] Last Admin: 01/17/18 09:51 Dose: 100 mg Enoxaparin Sodium (Lovenox) 40 mg SC DAILY [facility] Last Admin: 01/16/18 09:41 Dose: 40 mg Fentanyl (Duragesic) 1 patch TD Q72H [facility] Last Admin: 01/15/18 20:41 Dose: 1 patch Hydromorphone HCl (Dilaudid) 2 mg IVP Q4H PRN PRN Reason: Pain, severe (8-10) Last Admin: 01/17/18 13:50 Dose: 2 mg Insulin Human Regular (Novolin R) 0 unit SC ACHS [facility] PRN Reason: Protocol Last Admin: 01/17/18 12:30 Dose: Not Given Lactulose (Enulose) 20 gm PO Q8H [facility] Last Admin: 01/17/18 09:52 Dose: 20 gm Pantoprazole Sodium (Protonix Ec Tab) 40 mg PO DAILY [facility] Last Admin: 01/17/18 09:52 Dose: 40 mg - Labs Labs: 01/17/18 07:30 01/17/18 07:30 PT 15.1 SECONDS (9.7-12.2) H 01/11/18 20:56 INR 1.3 01/11/18 20:56 APTT 30 SECONDS (21-34) 01/11/18 20:56 - Constitutional Appears: Chronically Ill - Head Exam Head Exam: NORMOCEPHALIC - Eye Exam Eye Exam: Scleral icterus - Cardiovascular Exam Cardiovascular Exam: REGULAR RHYTHM - GI/Abdominal Exam GI & Abdominal Exam: Soft. absent: Tenderness Assessment and Plan (1) Jaundice Assessment & Plan: Malignant biliary obstruction Goal is palliation Pt/family decided against percutaneous biliary drainage Hospice Re-consult PRN Status: Acute (2) Metastatic breast cancer Status: Chronic
[2018-01-17 17:14] VITALS: TEMP 98.4
--- NOTE | 2018-01-18 07:40 | CP.PCM.PN ---
Subjective - Date & Time of Evaluation Date of Evaluation: 01/18/18 Time of Evaluation: 07:39 - Subjective Subjective: Medicine Progress note for Dr. Soto's service Patient was seen and examined at bedside. Patient appeared more comfortable and in less pain the previously. Patient reports her pain has improved after changing her pain medications. She states she still has diffuse abdominal pain and says her last BM was 2 days ago. Patient denies chest pain, abdominal pain, nausea, vomiting, fevers, headaches, and leg pain. Objective - Vital Signs/Intake and Output Vital Signs (last 24 hours): Temp Pulse Resp BP Pulse Ox 98.4 F 91 H 20 124/65 97 01/18/18 00:00 01/18/18 00:00 01/18/18 00:00 01/18/18 00:00 01/18/18 00:00 Intake and Output: 01/18/18 01/18/18 06:59 18:59 Intake Total 250 Balance 250 - Medications Medications: Current Medications Docusate Sodium (Colace) 100 mg PO BID [facility] Last Admin: 01/17/18 17:09 Dose: 100 mg Enoxaparin Sodium (Lovenox) 40 mg SC DAILY [facility] Last Admin: 01/16/18 09:41 Dose: 40 mg Fentanyl (Duragesic) 1 patch TD Q72H [facility] Last Admin: 01/15/18 20:41 Dose: 1 patch Hydromorphone HCl (Dilaudid) 2 mg IVP Q4H PRN PRN Reason: Pain, severe (8-10) Last Admin: 01/18/18 04:25 Dose: 2 mg Insulin Human Regular (Novolin R) 0 unit SC [facility] PRN Reason: Protocol Last Admin: 01/17/18 21:46 Dose: Not Given Lactulose (Enulose) 20 gm PO Q8H [facility] Last Admin: 01/18/18 03:00 Dose: 20 gm Pantoprazole Sodium (Protonix Ec Tab) 40 mg PO DAILY [facility] Last Admin: 01/17/18 09:52 Dose: 40 mg - Labs Labs: 01/17/18 07:30 01/17/18 07:30 PT 15.1 SECONDS (9.7-12.2) H 01/11/18 20:56 INR 1.3 01/11/18 20:56 APTT 30 SECONDS (21-34) 01/11/18 20:56 - Additional Findings Additional findings: - Constitutional Appears: Chronically Ill - Head Exam Head Exam: ATRAUMATIC - Eye Exam Eye Exam: EOMI, Scleral icterus - ENT Exam ENT Exam: Mucous Membranes Moist - Respiratory Exam Respiratory Exam: Decreased Breath Sounds, NORMAL BREATHING PATTERN. absent: Rales, Rhonchi, Wheezes, Respiratory Distress - Cardiovascular Exam Cardiovascular Exam: REGULAR RHYTHM, +S1, +S2 - GI/Abdominal Exam GI & Abdominal Exam: Soft, Tenderness (diffuse), Normal Bowel Sounds. absent: Distended - Extremities Exam Extremities Exam: Tenderness (diffuse). absent: Pedal Edema - Neurological Exam Neurological Exam: Alert, Awake - Skin Skin Exam: Dry, Intact, Warm. absent: Normal Color (jaundiced) Assessment and Plan - Assessment and Plan (Free Text) Plan: Jaundice Total Bilirubin ELEVATED 13.9 AST/ALT ELEVATED Alk Phos ELEVATED 547 GI consult, Dr Lr * Per Dr Soto's request - no aggressive intervention * MRCP - Extensive biliary obstruction is appreciated likely on the basis of beth hepatis hepatic mass with pancreatic duct also dilated as discussed above. No pancreatic head or ampullary mass is not excluded, though none is clearly delineated in this noncontrast MR examination, given prominence of the pancreatic duct. Overall pattern likely reflects metastasis throughout the liver including the beth hepatis region. Still, cholangiocarcinoma or [place] tumor not completely excluded. Right renal cysts identified. CT abd/pelvis from previous admission 12/13/17 showed hepatic lesions suspicious for metastasis No drain placement by Dr. Avendaño- Palliative measures Metastatic breast cancer Assessment and Plan: With metastases to brain, lungs, liver, spine (see previous imaging for full details) Hematology and Oncology Consult, Dr. 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 Diaen Pain management: * Dilaudid 1 mg IV Q6H prn ----> increased to Dilaudid 2 mg IV Q4H prn on * Added fentanyl 50mcg/hr 1 patch Q72H MRI of spine done on 12/18/17 showed metastasis to thoracic spine involving all segments. Small epidural tumor extension posterior to T12 segment which compresses the anterolateral borders of the thecal sac nearly reaching but not significantly compressing the spinal cord. Tumor extending laterally at T11- T12. Constipation Assessment and Plan: Colace 100mg PO BID Lactulose 20g PO Q8H Patient with previous admission to [facility] for constipation. If patient continues to be constipated, add on agents (Miralax 17g PO BID, Senokot 8.6mg PO QD) as this combination worked for her on previous admission here at [facility]. Diabetes mellitus Assessment and Plan: Accuchecks ACHS ISS ACHS - medium dose Continue to monitor History of hypertension Assessment and Plan: Stable Reevaluate for need of inpatient medication based on vital signs Q4H Prophylactic measure Assessment and Plan: GI: Protonix 40mg PO daily DVT: Lovenox 30mg SC daily DISPOSITION: Palliative care was consulted. POLST signed. Patient is now DNR/ DNI. Discussed Hospice at home with family and case workers- planning discharge with hospice home care. Continue pain management. All medical management per Dr. Soto.
[2018-01-18 08:11] LABS: HEMOGLOBIN 10.6 g/dL (11.0-16.0); MEAN CELL VOLUME 88.1 fL (81.0-99.0); MEAN CORPUSCULAR HEMOGLOBIN 30.6 pg (27.0-31.0); MEAN CORPUSCULAR HGB CONC 34.7 g/dL (33.0-37.0); MEAN PLATELET VOLUME 9.8 fL (7.2-11.7); PLATELET COUNT 215 K/uL (130-400); RBC 3.47 Mil/uL (3.80-5.20); RED CELL DISTRIBUTION WIDTH 23.3 % (11.5-14.5); WHITE BLOOD COUNT 8.8 K/uL (4.8-10.8)
[2018-01-18 08:15] VITALS: BP 146/73; PULSE 90; O2SAT 96
[2018-01-18 08:16] LABS: ALB/GLOB RATIO 0.8 (1.0-2.1); ALT/SGPT 153 U/L (9-52); AST/SGOT 121 U/L (14-36); BLOOD UREA NITROGEN 23 mg/dL (7-17); CALCIUM 8.9 mg/dl (8.6-10.4); GFR AFRICAN-AMERICAN > 60; GFR NON-AFRICAN AMERICAN > 60
[2018-01-18] MEDS: (Novolin R) Insulin Human Regular 100 units/ml vial SC SCH ×4 (08:30→17:41)
[2018-01-18] MEDS: Pantoprazole 40 mg EC Tab PO SCH ×2 (09:42→11:00)
[2018-01-18] MEDS: Enoxaparin 40 mg Syringe SC SCH (11:00)
[2018-01-18 11:21] LABS: NEUT # 8.4 K/uL (1.8-7.0)
[2018-01-18 11:22] LABS: LYMPH # 0.2 K/uL (1.0-4.3); MONO # 0.3 K/uL (0.0-0.8)
[2018-01-18 11:37] LABS: ANISOCYTOSIS SLIGHT; HYPOCHROMIC SLIGHT; LYMPHOCYTE 2 % (20-40); MONOCYTE 4 % (0-10); NEUTROPHIL 94 % (50-75); PLATELET ESTIMATE NORMAL (NORMAL); POIKILOCYTOSIS SLIGHT; TOTAL CELLS COUNTED 100
[2018-01-18 11:38] LABS: MICROCYTOSIS SLIGHT; TARGET CELLS SLIGHT
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
== END 2018-01-18 18:06 | disposition hospice, home (50) | DRG 435 ==
LOC: C.ER 19:20 → C.3T 22:19
PROVIDERS: ADMIT Internal Medicine; ATTEND Internal Medicine
DX: C22.1 Intrahepatic bile duct carcinoma (principal); K83.1 Obstruction of bile duct; C78.7 Secondary malignant neoplasm of liver and intrahepatic bile duct; C79.31 Secondary malignant neoplasm of brain; C78.00 Secondary malignant neoplasm of unspecified lung; C79.51 Secondary malignant neoplasm of bone; C50.911 Malignant neoplasm of unspecified site of right female breast; G89.3 Neoplasm related pain (acute) (chronic); E11.9 Type 2 diabetes mellitus without complications; E87.6 Hypokalemia; I10 Essential (primary) hypertension; K59.00 Constipation, unspecified; M81.0 Age-related osteoporosis without current pathological fracture; K86.89 Other specified diseases of pancreas; N28.1 Cyst of kidney, acquired; Z51.5 Encounter for palliative care; Z66 Do not resuscitate; Z85.43 Personal history of malignant neoplasm of ovary; Z90.49 Acquired absence of other specified parts of digestive tract; Z98.82 Breast implant status

== ENCOUNTER 2018-01-19 14:51 | Inpatient (IN) | payer MEDICARE, MEDICAID ==
[2018-01-19 14:52] VITALS: BMI 26.3
[2018-01-19] MEDS ORDERED: Sodium Chloride 0.9% 1,000 ML IV ONE (15:21)
[2018-01-19] MEDS ORDERED: HYDROmorphone 1 mg/ml ISec IVP STA (15:22)
[2018-01-19] MEDS ORDERED: HYDROmorphone 1 mg/ml ISec ONE (15:30)
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
[2018-01-19 15:39] LABS: HEMOGLOBIN 10.8 g/dL (11.0-16.0); MEAN CORPUSCULAR HEMOGLOBIN 30.1 pg (27.0-31.0); MEAN CORPUSCULAR HGB CONC 34.2 g/dL (33.0-37.0); MEAN PLATELET VOLUME 9.3 fL (7.2-11.7); RBC 3.59 Mil/uL (3.80-5.20); RED CELL DISTRIBUTION WIDTH 24.6 % (11.5-14.5); WHITE BLOOD COUNT 7.8 K/uL (4.8-10.8)
[2018-01-19 16:12] LABS: ALB/GLOB RATIO 0.7 (1.0-2.1); ALBUMIN 3.3 g/dL (3.5-5.0); ALT/SGPT 180 U/L (9-52); AST/SGOT 202 U/L (14-36); BLOOD UREA NITROGEN 24 mg/dL (7-17); CALCIUM 9.4 mg/dl (8.6-10.4); GFR AFRICAN-AMERICAN > 60; GFR NON-AFRICAN AMERICAN > 60
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
[2018-01-19 18:05] LABS: NEUT # 6.7 K/uL (1.8-7.0)
[2018-01-19 18:08] LABS: LYMPH # 0.6 K/uL (1.0-4.3); MONO # 0.5 K/uL (0.0-0.8)
--- NOTE | 2018-01-20 07:08 | CP.PCM.PN ---
Subjective - Date & Time of Evaluation Date of Evaluation: 01/20/18 Time of Evaluation: 07:08 - Subjective Subjective: Medicine progress note for Dr. Soto's service Patient was seen and examined at bedside in no acute distress. Patient was sedated and falling asleep during examination. She denies pain and states she feels better. ROS limited due to sedation. Family was at bedside. Objective - Vital Signs/Intake and Output Vital Signs (last 24 hours): Temp Pulse Resp BP Pulse Ox 98.5 F 104 H 20 115/59 L 95 01/20/18 00:00 01/20/18 00:00 01/20/18 00:00 01/20/18 00:00 01/20/18 00:00 Intake and Output: 01/20/18 01/20/18 06:59 18:59 Intake Total 40 Balance 40 - Medications Medications: Current Medications Morphine Sulfate 250 mg/ (Sodium Chloride) 250 mls @ 5 mls/hr IV .Q24H ONE PRN Reason: Protocol Stop: 01/20/18 16:21 Last Admin: 01/19/18 17:52 Dose: 0.09 mg/kg/hr, 5 mls/hr - Labs Labs: 01/19/18 15:29 01/19/18 15:29 - Constitutional Appears: No Acute Distress, Chronically Ill - Head Exam Head Exam: ATRAUMATIC, NORMAL INSPECTION - Eye Exam Eye Exam: Scleral icterus - ENT Exam ENT Exam: Mucous Membranes Dry - Respiratory Exam Respiratory Exam: Decreased Breath Sounds, NORMAL BREATHING PATTERN. absent: Rales, Wheezes, Respiratory Distress - Cardiovascular Exam Cardiovascular Exam: +S1, +S2 - GI/Abdominal Exam GI & Abdominal Exam: Soft, Normal Bowel Sounds. absent: Tenderness - Extremities Exam Extremities Exam: absent: Pedal Edema, Tenderness - Neurological Exam Neurological Exam: Altered - Psychiatric Exam Additional comments: Sedated - Skin Skin Exam: Dry, Intact, Warm. absent: Normal Color (jaundiced) Assessment and Plan - Assessment and Plan (Free Text) Plan: Morphine Drip 5cc/hr Comfort care measures Hospice Eval Swallow eval- pureed diet Discussed with attending. All management per Dr. Soto
--- NOTE | 2018-01-20 16:23 | CARD ---
APPROVED REPORT EKG Measurement Heart [id number] <Conclusion> Sinus tachycardia Otherwise normal ECG
--- NOTE | 2018-01-21 11:40 | CP.PCM.PN ---
Subjective - Date & Time of Evaluation Date of Evaluation: 01/21/18 Time of Evaluation: 09:00 - Subjective Subjective: Medicine progress note for Dr. Soto's service ROS limited due to sedation. Patient was seen and examined at bedside in no acute distress. Patient was sedated and falling asleep during examination. She denies pain and states she feels better. Family was at bedside. Objective - Vital Signs/Intake and Output Vital Signs (last 24 hours): Temp Pulse Resp BP Pulse Ox 98.4 F 110 H 18 93/58 L 94 L 01/20/18 18:00 01/20/18 18:00 01/20/18 18:00 01/20/18 18:00 01/20/18 18:00 Intake and Output: 01/21/18 01/21/18 06:59 18:59 Intake Total 110 Balance 110 - Medications Medications: Current Medications Morphine Sulfate 250 mg/ (Sodium Chloride) 250 mls @ 5 mls/hr IV .Q24H GEORGIE PRN Reason: Protocol Last Admin: 01/20/18 18:38 Dose: 0.09 mg/kg/hr, 5 mls/hr Risperidone (Risperdal Tab) 1 mg PO HS GEORGIE Last Admin: 01/20/18 23:57 Dose: Not Given - Labs Labs: 01/19/18 15:29 01/19/18 15:29 - Additional Findings Additional findings: - Constitutional Appears: No Acute Distress, Chronically Ill - Head Exam Head Exam: ATRAUMATIC, NORMAL INSPECTION - Eye Exam Eye Exam: Scleral icterus - ENT Exam ENT Exam: Mucous Membranes Dry - Respiratory Exam Respiratory Exam: Decreased Breath Sounds, NORMAL BREATHING PATTERN. absent: Rales, Wheezes, Respiratory Distress - Cardiovascular Exam Cardiovascular Exam: +S1, +S2 - GI/Abdominal Exam GI & Abdominal Exam: Soft, Normal Bowel Sounds. absent: Tenderness - Extremities Exam Extremities Exam: absent: Pedal Edema, Tenderness - Neurological Exam Neurological Exam: Altered - Psychiatric Exam Additional comments: Sedated - Skin Skin Exam: Dry, Intact, Warm, jaundiced Assessment and Plan - Assessment and Plan (Free Text) Assessment: Metastatic breast cancer Assessment and Plan: With metastases to brain, lungs, liver, spine (see previous imaging for full details) Has received chemotherapy on and off for past 9 years Received 10 rounds of radiation on previous admission in 12/2017 Comfort care measures only Morphine Drip 5cc/hr Risperidone 1mg PO HS Family refusing home hospice PT/OT Pureed Diet Hospice Eval Status: Chronic
[2018-01-22 00:53] VITALS: BP 102/64; PULSE 122; RESP 18; TEMP 102.1; O2SAT 87
--- NOTE | 2018-01-22 17:43 | CP.PCM.PRO ---
Pronouncement of Note - Clinical Findings Physical Exam: No Response Verbal/Painful Stimuli, Absent Peripheral Pulses{ Carotid & Femoral}, Absent Heart & Breath Sounds, No Pupillary Light Reflex, No Corneal Reflex, Pupils Fixed & Dilated, Absence of Vital Signs - Pronouncement Time Time of Pronouncement of : 17:39 Additional Comments: Family at bedside. Dr Soto, Attending, notified. - Notifications Pronouncement Notifications: Family Notified, Atending Notified
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
== END 2018-01-22 21:00 | DRG 436 ==
LOC: C.ER 14:51 → C.3T 15:33
PROVIDERS: ADMIT Internal Medicine; ATTEND Internal Medicine
DX: C78.7 Secondary malignant neoplasm of liver and intrahepatic bile duct (principal); C79.31 Secondary malignant neoplasm of brain; C79.49 Secondary malignant neoplasm of other parts of nervous system; E11.9 Type 2 diabetes mellitus without complications; I10 Essential (primary) hypertension; Z51.5 Encounter for palliative care; Z85.3 Personal history of malignant neoplasm of breast; Z68.21 Body mass index [BMI] 21.0-21.9, adult; Z87.891 Personal history of nicotine dependence; Z92.3 Personal history of irradiation